=== PATIENT | female | born 1965 | race Caucasian/White ===

== ENCOUNTER 2019-06-20 11:43 | Outpatient (CLI) | payer BC, SELFPAY | END 2019-06-20 11:44 | disposition home or self-care (01) | LOC: SPT 11:44 | PROVIDERS: Family Provider Family Medicine; PCP Family Medicine; Visit Provider Specialist | DX: Z46.89 Encounter for fitting and adjustment of other specified devices (principal); S62.307D Unspecified fracture of fifth metacarpal bone, left hand, subsequent encounter for fracture with routine healing; X58.XXXD Exposure to other specified factors, subsequent encounter | CPT/HCPCS: L3984 ==

== ENCOUNTER → 2019-07-04 08:54 | Outpatient (BNVA) | payer BC, SELFPAY | PROVIDERS: Family Provider Family Medicine; PCP Family Medicine; Visit Provider Specialist | DX: S62.367A Nondisplaced fracture of neck of fifth metacarpal bone, left hand, initial encounter for closed fracture (principal); S62.647A Nondisplaced fracture of proximal phalanx of left little finger, initial encounter for closed fracture; X58.XXXA Exposure to other specified factors, initial encounter | CPT/HCPCS: 73130 ==

== ENCOUNTER → 2019-07-18 10:02 | Outpatient (BNVA) | payer BC, SELFPAY | PROVIDERS: Family Provider Family Medicine; PCP Family Medicine; Visit Provider Specialist | DX: S62.367A Nondisplaced fracture of neck of fifth metacarpal bone, left hand, initial encounter for closed fracture (principal); S62.647A Nondisplaced fracture of proximal phalanx of left little finger, initial encounter for closed fracture; X58.XXXA Exposure to other specified factors, initial encounter | CPT/HCPCS: 73130 ==

== ENCOUNTER 2020-02-04 09:14 | Observation (INO) | payer BC, SELFPAY ==
[2020-02-04] VITALS (23 sets, daily range): BP systolic 106–177; BP diastolic 55–96; PULSE 71–110; RESP 13–20; TEMP 36.3–36.9; O2SAT 93–100; BMI 34.2
--- NOTE | 2020-02-04 09:26 | CT_ITS ---
WS: [id number] CT ABDOMEN AND PELVIS WITH CONTRAST HISTORY: RIGHT lower quadrant pain. TECHNIQUE: Imaging performed of the abdomen and pelvis with IV contrast. Single phase imaging of the abdomen. Coronal and sagittal reformats are submitted. All CT scans at [facility] use at least one of these dose optimization techniques: automated exposure control; mA and/or kV adjustment per patient size (includes targeted exams where dose is matched to clinical indication); or iterativ e reconstruction. IV CONTRAST: Omnipaque 300; 95 mL IV. Oral contrast: No DLP: 1487.87 mGy.cm COMPARISON: None available. Lower thorax: Linear scar or atelectasis at the RIGHT lung base. 2 mm nodule at the RIGHT lung base o n image 9 of series 2. Heart is normal size. No hiatal hernia. Liver/biliary system: Normal size with no intrahepatic dilatation. Gallbladder: Normal. No gallstones or wall thickening. No pericholecystic fluid. Pancreas: Normal. Spleen: Normal. Adrenal glands: Normal. Right kidney: Normal. Left kidney: Areas of cortical thinning and scarring in the upper pole. No obstruction or solid mass. Aorta: Mild atherosclerosis with no aneurysm. Lymphadenopathy: None. Free fluid: Tiny amount of free fluid in the pelvis. Small amount of fluid along the RIGHT paracolic gutter. GI tract: The appendix is abnormal. Dilated appendix measuring up to 9 mm with a moderate amount of p eriappendiceal and pericecal fat stranding. No GI tract obstruction. There is no abscess. There are a few small lymph nodes in the fat surrounding the appendix. Abdominal wall: Small fat-containing umbilical hernia. Pelvis: Normal size anteverted uterus. Bones: Degenerative disc disease at L5-S1. CT/CT abdomen pelvis w con* [id number] IMPRESSION: 1. Acute appendicitis. Moderate adjacent periappendiceal inflammatory changes. No abscess. 2. No renal obstruction. Notified Olayinka Cochran DO at 02/04/2020 10:05 AM.
--- NOTE | 2020-02-04 09:54 | ED_ITS ---
HPI - Abdominal Pain General: Chief Complaint: Abdominal Pain Stated Complaint: abdominal tenderness/ running fever Time Seen by Provider: 02/04/20 09:21 History of Present Illness: HPI narrative: 54-year-old female presents emergency room with complaint of right lower quadrant abdominal pain for the last 2 days. She denies any genitourinary symptoms. She has a T-max of 102. Pain is progressively worsened since she began having in 2 days ago and is now h aving significant discomfort with mild palpation percussion and even with bumps in the road as she is driving here. She was seen by Dr. Morse this morning in his office and was highly suspicious for appendicitis he contacted us and reviewed the patient. Her last BM was 2 days ago. She denies any medication melena hematemesis or coffee-ground emesis of a history of heart disease Dr. Morse under the impression that the patient was taking Plavix however in reviewing with the patient she said she stopped that and is only taking aspirin at this time we will have him pharmacy operations specialist to confirm. She had a normal colonoscopy approximately 1 year ago she is diabetic in addition to having a known history of coronary artery disease MD elicited complaint: abdominal pain Pertinent past history: none Onset (ago): day(s) (2) Pain Consistency: constant Location: RLQ Severity: severe Quality: stabbing and sharp Radiation: none Migration to: no migration Exacerbating factors: movement Relieving factors: rest Associated Symptoms: Reports anorexia, bloating, GI cramping, nausea and vomiting; Denies change in bowel habits, change in stool character, chills, coffee ground emesis, constipation, diarrhea, dyspepsia, dysuria, excessive flatus, fever(s), heartburn, hematochezia, hematuria, hematemesis, fecal incontinence, loose stools, melena, poor appetite and syncope Review of Systems Const: Denies: fever(s) or chills ENMT: Denies: throat pain, ear or mastoid pain, nasal discharge or nasal congestion Card: Denies: syncope Resp: Denies: dyspnea, productive cough or non-productive cough GI: Reports: nausea, vomiting, bloating and GI cramping; Denies: hematemesis, coffee ground emesis, heartburn, diarrhea, constipation, excessive flatus, fecal incontinence, change in bowel habits, change in stool character, hematochezia or melena : Denies: dysuria or hematuria Skin/Breast: Denies: rash or pruritus PFSH ED PFSH: Medical History (Updated 02/04/20 @ 10:26 by Olayinka Cochran DO) CAD (coronary artery disease) CHF (congestive heart failure) High blood pressure determined by examination History of [place] (myocardial infarction) HTN (hypertension) Type 2 diabetes mellitus Family History Mother Heart disease Father Heart disease Social History Smoking and tobacco status: never smoked Alcohol intake: never Physical Exam Const: COMMON NORMALS: no acute distress GENERAL APPEARANCE: cooperative and comfortable ORIENTATION/CONSCIOUSNESS: Yes awake, Yes oriented to person, Yes oriented to place and Yes oriented to time HENMT: COMMON NORMALS: normocephalic, atraumatic and hearing grossly normal bilaterally HEAD & SCALP: normocephalic and atraumatic Neck/C-Spine: COMMON NORMALS: no JVD Resp: COMMON NORMALS: normal respiratory effort, No retractions, No use of accessory muscles and clear to auscultation bilaterally AUSCULTATION: clear to auscultation bilaterally Cardio: COMMON NORMALS: no JVD, regular rate, regular rhythm and No murmurs present (Cardio) RATE: regular rate RHYTHM: regular rhythm GI: PALPATION: Yes Tenderness to palpation present (GI) Details: RLQ, Yes Guarding due to palpation present (GI) in the RLQ and Yes Rebound tenderness present PERCUSSION: Other (pain with light percussion) Extremity: COMMON NORMALS: normal to inspection, capillary refill normal, no clubbing, cyanosis or edema, no calf tenderness and no pedal edema Neuro: SENSORIUM/ORIENTATION: Yes oriented to person, Yes oriented to place and Yes oriented to time Skin: COMMON NORMALS: no rashes or lesions noted GENERAL SKIN EXAM: no rashes or lesions noted Course Vital Signs: Vital signs: Vital Signs Temperature 98.5 F 02/04/20 09:16 Pulse Rate 106 H 02/04/20 10:00 Respiratory Rate 18 02/04/20 10:10 Blood Pressure 137/55 02/04/20 10:00 Pulse Oximetry 97 02/04/20 10:10 MDM - Abdominal Pain MDM Narrative: Medical decision making narrative: Acute appendicitis by CT consistent with physical exam findings. Discussed Dr. Walker he will take patient directly from the ER to the OR for definitive surgical care see his notes for further course of care. Lab Data: Labs: Lab Results 02/04/20 02/04/20 02/04/20 Range/Units 09:35 09:35 09:44 Sodium 138 (136-145) mmol/L Potassium 3.4 L (3.5-5.1) mmol/L Chloride 100 (98-107) mmol/L Carbon Dioxide 23 (22-29) mmol/L Anion Gap 18.4 (5-19) BUN 13 (6-20) mg/dL Creatinine 0.7 (0.5-0.9) mg/dL GFR Calculation 87.2 L (90-130) mL/min Glucose 133 H (65-115) mg/dL Calculated Osmolal ity 288 (285-295) mOsm/k g Lactic Acid 1.2 (0.5-2.2) mmol/L Calcium 9.8 (8.5-10.5) mg/dL Total Bilirubin 0.7 (0.15-1.2) mg/dL AST 12 (0-32) U/L ALT 19 (0-33) U/L Alkaline Phosphata se 68 (35-105) IU/L Total Protein 7.8 (6.6-8.7) g/dL Albumin 4.4 (3.5-5.2) g/dL Globulin 3.4 (1.3-4.6) g/dL Lipase 18 (13-60) U/L Urine Color Straw (Yellow) Urine Appearance Hazy A (CLEAR) Urine pH 6 (5-7) Ur Specific Gravit y 1.005 (1.005-1.030) Urine Protein Neg (Negative) Urine Glucose (UA) 4+ H (Normal) Urine Ketones 1+ H (Negative) Urine Blood Neg (Negative) Urine Nitrate Negative (Negative) Urine Bilirubin Neg (Negative) Urine Urobilinogen Norm (Negative) mg/dL Ur Leukocyte Esperanza ase Negative (Negative) Urine RBC None (0-2) /hpf Urine WBC 0-4 H (0-5) /hpf Ur Squamous Epith Cells None (0-5) /hpf Amorphous Sediment Not Reportable Urine Bacteria 4+ H (NONE) /hpf Discharge Plan Discharge Patient Disposition: Placed in Observation Clinical Impression: Acute appendicitis Coding Level of Care Code ED Casing Running Machine Tender for Chg Fwd Exam Comprehensive
[2020-02-04] MEDS: iohexol 300 mg/mL 100 mL Btl IV (09:55)
[2020-02-04] MEDS: ondansetron 2 mg/ML SDV 2 mL 4 MG IVP (10:02)
[2020-02-04 10:04] LABS: Protein Urine Neg (Negative); Specific Gravity, Urine 1.005 (1.005-1.030); Urine Appearance Hazy (CLEAR); Urine Color Straw (Yellow); pH Urine 6 (5-7)
[2020-02-04 10:05] LABS: Add Urine Microscopic? YES; Bilirubin Urine Neg (Negative); Blood Urine Neg (Negative); Glucose Urine UA 4+ (Normal); Ketones Urine 1+ (Negative); Leukocyte Esterase Urine Negative (Negative); Nitrate Urine Negative (Negative); Urobilinogen Urine Norm (Negative)
[2020-02-04 10:09] LABS: Lactic Sepsis W/Reflex 1.2 mmol/L (0.5-2.2)
[2020-02-04 10:10] LABS: Alanine Aminotransferase 19 U/L (0-33); Albumin Level 4.4 g/dL (3.5-5.2); Alkaline Phosphatase 68 IU/L (35-105); Anion Gap 18.4 (5-19); Aspartate Amino Transferase 12 U/L (0-32); Blood Urea Nitrogen 13 mg/dL (6-20); Calcium 9.8 mg/dL (8.5-10.5); Carbon Dioxide 23 mmol/L (22-29); Chloride 100 mmol/L (98-107); Globulin 3.4 g/dL (1.3-4.6); Glomerular Filtration Rate 87.2 mL/min (90-130); Glucose 133 mg/dL (65-115); Lipase 18 U/L (13-60); Osmolality Calculated 288 mOsm/kg (285-295); Potassium 3.4 mmol/L (3.5-5.1); Sodium 138 mmol/L (136-145); Total Bilirubin 0.7 mg/dL (0.15-1.2); Total Protein 7.8 g/dL (6.6-8.7)
[2020-02-04] MEDS: morphine 4 mg/mL SDV 1 mL IVP (10:10)
[2020-02-04 10:16] LABS: Add Urine Culture? No; Bacteria Urine 4+ /hpf; WBC Urine 0-4 /hpf (0-5)
--- NOTE | 2020-02-04 10:35 | PM.HP ---
Providers/Chief Complaint Admitting Physician: Dr. Walker Primary Care Provider: Romina Walton MD Chief Complaint: abdominal tenderness/ running fever History of Present Illness Kimberly Aldridge is a 54 year old female who started having lower abdominal pain day before yesterday night. Patient states that the pain progressively got worse over the course of the day yesterday until it became significant enough that she presented to her PCPs office who referred her to the ER. Patient denies any nausea, vomiting, fever chills, constipation or diarrhea. No similar episodes in the past. Patient is currently on aspirin but does not take Plavix. She had cardiac stents placed in 2017. No prior abdominal surgeries. Review of Systems General: Reports: 10 or more systems reviewed and unremarkable except in HPI and below Medications/Allergies Home Medications Medication Instructions Recorded Confirmed Last Taken Type exenatide microspheres 2 mg/0.65 2 mg SUBCUT Q7D 06/20/19 02/04/20 Unknown History mL subcutaneous pen injector aspirin 325 mg PO DAILY@05 02/04/20 02/04/20 02/04/20 05:00 History dapagliflozin [Farxiga] 10 mg PO DAILY@05 02/04/20 02/04/20 02/04/20 05:00 History glipizide 5 mg PO BID@02/04/20 02/04/20 02/04/20 05:00 History hydrochlorothiazide 12.5 mg PO DAILY@05 02/04/20 02/04/20 02/04/20 05:00 History metformin 750 mg PO BID 02/04/20 02/04/20 Unknown History metoprolol succinate 25 mg PO Q12H 02/04/20 02/04/20 02/04/20 History simvastatin 80 mg PO DAILY@22 02/04/20 02/04/20 02/03/20 History Allergies Allergy/AdvReac Type Severity Reaction Status Date / Time No Known Allergies Allergy Verified 02/04/20 10:28 PFSH Acute PFSH: Medical History (Updated 02/04/20 @ 10:38 by Joe Walker MD) CAD (coronary artery disease) CHF (congestive heart failure) History of [place] (myocardial infarction) HTN (hypertension) Hyperlipidemia Type 2 diabetes mellitus Surgical History (Updated 02/04/20 @ 10:37 by Joe Walker MD) H/O heart artery stent Family History Mother Heart disease Father Heart disease Social History Smoking and tobacco status: never smoked Alcohol intake: never Vitals/I&O/Wt Last Vital Signs Temp 98.2 F 02/04/20 10:30 Pulse 101 H 02/04/20 10:30 Resp 18 02/04/20 10:30 BP 134/96 02/04/20 10:30 Pulse Ox 98 02/04/20 10:30 Weight last 48 hrs Weight 212 lb Physical Exam Narrative: EXAM NARRATIVE: HEENT: Normocephalic Eye: Sclera /conjunctiva normal Respiratory and chest: Bilateral clear breath sounds on auscultation Cardiovascular: Normal S1 and S2 heart sounds Abdomen: Soft to palpation, tender right lower quadrant Neurological: Oriented to place person and time Skin: Intact, no lesions appreciated on gross exam Data : 02/04/20 09:35 02/04/20 09:35 A&P Assessment and plan (1) Acute appendicitis: 54-year-old female who presents to the ER today with right lower quadrant pain and CT scan showing acute appendicitis Plan for laparoscopic possible open appendectomy Procedure, risks, benefits and alternatives have been discussed with the patient who wishes to proceed with surgery. Status: Resolved Attestations Medical Necessity Statement*: Acute appendicitis requiring surgery Coding Level of Care Code Acute Rf Design Engineer for [facility] Diagnoses Acute appendicitis K35.80
--- NOTE | 2020-02-04 10:38 | P.ANESASSM_ITS ---
Pre-Anesthetic Assessment Pre-Anesthetic Assessment: Height/Weight: Height 1.68 m Weight 96.162 kg Temp Pulse Resp BP Pulse Ox 98.2 F 101 H 18 134/96 98 02/04/20 10:30 02/04/20 10:30 02/04/20 10:30 02/04/20 10:30 02/04/20 10:30 Preop Diagnosis: Acute appendicitis Proposed Procedure: Operation Date: 02/04/20 10:45 Proposed Procedures p Laparoscopic Appendectomy(Not Applicable) - Joe Walker MD Was Beta Gina taken within 24 hours: Yes Social: Social History: No alcohol and No tobacco Exam: Pre-Anes Outpt Exam: alert, oriented x 3, clear to auscultation bilaterally and regular rate & rhythm Airway: Submandibular: WNL Cervical ROM: WNL MP: 2 Dentition: Full Pulmonary: Pulmonary: None reported CV/HEM: CV/HEM: CAD and HTN : : None reported Hepatic: Hepatic: None reported GI: Comments: Acute abdomen Metabolic: Metabolic: DM Musc/skel: Musc/skel: None reported Neuropsych: Neuropsych: None reported Anesthetic Plan: ASA status: 3 Anesthesia: General Other: RSI Risk of > 500 ml blood loss (7ml/kg in children): No PFSH Anesthesia PFSH: Medical History (Updated 02/04/20 @ 10:38 by Joe Walker MD) CAD (coronary artery disease) CHF (congestive heart failure) History of [place] (myocardial infarction) HTN (hypertension) Hyperlipidemia Type 2 diabetes mellitus Surgical History (Updated 02/04/20 @ 10:37 by Joe Walker MD) H/O heart artery stent Family History Mother Heart disease Father Heart disease Social History Smoking and tobacco status: never smoked Alcohol intake: never Data Anesthesia CBC & Chem 7: 02/04/20 09:35 02/04/20 09:35 Other Labs: Laboratory Results - last 48 hr 02/04/20 02/04/20 02/04/20 09:35 09:35 09:44 Sodium 138 Potassium 3.4 L Chloride 100 Carbon Dioxide 23 Anion Gap 18.4 BUN 13 Creatinine 0.7 GFR Calculation 87.2 L Glucose 133 H Calculated Osmolality 288 Lactic Acid 1.2 Calcium 9.8 Total Bilirubin 0.7 AST 12 ALT 19 Alkaline Phosphatase 68 Total Protein 7.8 Albumin 4.4 Globulin 3.4 Lipase 18 Urine Color Straw Urine Appearance Hazy A Urine pH 6 Ur Specific [place] 1.005 Urine Protein Neg Urine Glucose (UA) 4+ H Urine Ketones 1+ H Urine Blood Neg Urine Nitrate Negative Urine Bilirubin Neg Urine Urobilinogen Norm Ur Leukocyte Esterase Negative Urine RBC None Urine WBC 0-4 H Ur Squamous Epith Cells None Amorphous Sediment Not Reportable Urine Bacteria 4+ H Cardiac Studies: No Data to Display
[2020-02-04] MEDS: sodium chloride 0.9% 1,000 ML 30 ML IV (10:49)
[2020-02-04 10:51] LABS: Basophils # 0.1 10^3/uL (0.0-0.1); Basophils % 0.5 %; Eosinophils # 0.1 10^3/uL (0.0-0.8); Eosinophils % 1.1 %; Hematocrit 45.6 % (37.0-47.0); Hemoglobin 15.1 g/dL (11.5-15.3); Lymphocytes # 2.9 10^3/uL (0.8-4.8); Lymphocytes % 25.5 %; Mean Corpuscular HGB Conc 33.1 g/dL (30.0-36.0); Mean Corpuscular Hemoglobin 28.1 pg (28.0-34.0); Mean Corpuscular Volume 84.9 fL (81-99); Mean Platelet Volume 9.6 fL (7.4-10.4); Monocytes # 0.8 10^3/uL (0.2-0.9); Monocytes % 6.8 %; Neutrophils # 7.58 10^3/uL (1.8-7.7); Neutrophils % 65.8 %; Nucleated Red Blood Cells % 0 %; Platelet Count 384 10^3/cmm (130-400); Red Blood Count 5.37 10^6/uL (4.1-5.3); Red Cell Distribution Width 13.9 % (12.1-15.1); White Blood Count 11.5 10^3/uL (4.0-10.0)
[2020-02-04] MEDS: piperacillin-tazobactam 3.375 GM in sodium chloride 0.9% (plus) 50 ML IV ×2 (10:56→18:11)
--- NOTE | 2020-02-04 12:13 | ANE.PACU2 ---
Inpatient post-anesthesia follow up: Airway intact: Yes Vital signs: Temperature 98.2 F Pulse Rate [Monito r] 110 Pulse Rate 101 Respiratory Rate 18 Blood Pressure [Ri ght Arm] 146/96 Blood Pressure 134/96 Pulse Oximetry 98 Oxygen Delivery Me thod Room Air Oxygen Flow Rate Fraction of Inspir ed Oxygen Hydration adequate: Yes Nausea and vomiting: No Pain level: 2 Mental status: Baseline
--- NOTE | 2020-02-04 12:41 | SUR.PHASEI ---
ABDOMEN SOFT AND ROUND, 3 INCISION SITES, EXOFIN FOR DRESSING. NO DRAINAGE NOTED, DENIES ANY NAUSEA OR DISCOMFORT AT THIS TIME.
--- NOTE | 2020-02-04 13:49 | SUR.PHASEI ---
1319 PT AWAKE ALERT TEXTING ON PHONE, PT DENIES PAIN AND NAUSEA, VSS ABD SOFT PT TOFLOORPER CART REPORT CALLED TO MAUREEN RN, PT TO ROOM UP TO BR WITH MINIMAL ASSIST.
--- NOTE | 2020-02-04 15:52 | PC.NURSE ---
PATIENT [facility]BUL[facility] AROUND [facility] WITH NO ASSISTANCE BUT STANDBY. NO ISSUES REPORTED.
[2020-02-04] MEDS: sodium chloride 0.9% 1,000 ML 100 ML IV (16:50)
[2020-02-04 17:15] LABS: Glucose Point of Care 171 mg/dL (70-110)
--- NOTE | 2020-02-04 17:55 | PM.OP ---
Operative Report Date of procedure: February 04, 2020 Pre-op Diagnosis: Acute appendicitis Post-op Diagnosis: Acute retrocecal appendicitis Procedure Done: Laparoscopic appendectomy Surgeon: Joe Walker Anesthesia: General Condition: stable Disposition: PACU Procedure: The patient was taken to the Operating Room and intubated under general anesthesia after antibiotic had been administered. Using a 15 blade, a 1-cm infraumbilical incision was made and using open James technique, the peritoneal cavity was entered. A 12mm port with balloon was placed and 14 mm of pneumoperitoneum was created and 10-mm 30 degree scope was introduced. Two separate 5mm ports were placed in the left and right lower quadrant under direct visualization. The appendix could not be identified though there was some induration noted on the lateral aspect of the cecum. The line of Toldt was opened medially and the retroperitoneal plane was entered. Due to significant inflammation and the fact the patient is on 325 mg of aspirin there was moderate amount of oozing which was irrigated and suctioned out. Dissection was carried in the retroperitoneal plane until finally the base of the appendix was identified. There was bleeding from the division of the mesoappendix which was controlled with a combination of electrocautery and 10 mm clips. The mesoappendix was finally freed using electrocautery/blunt dissection from the lateral wall of the cecum. An Endo SANDRA stapler 45mm long 3.5mm blue load was introduced to divide the appendix at it's base. There was no bleeding noted and the staple line appeared intact. The right lower quadrant was irrigated with saline and an EndoCatch bag was introduced to remove the appendix. All three ports were removed under direct visualization and there was no bleeding noted on the port sites. 10 0.5% Marcaine was infiltrated at the port sites. The fascia at the umbilical port was closed using figure of eight 0-Vicryl sutures and subcutaneous tissue was approximated using 3-0 Vicryl and skin at all 3 port sites was closed using 4-0 Monocryl and Dermabond.
[2020-02-04] MEDS: metoprolol succinate ER (24 HR) 25 mg Tablet PO (18:11)
[2020-02-04] MEDS: docusate sodium 100 mg Capsule PO (18:11)
[2020-02-04 20:38] LABS: Glucose Point of Care 249 mg/dL (70-110)
[2020-02-04] MEDS: atorvastatin 40 mg Tablet PO (21:40)
[2020-02-05 01:00] VITALS: BP 101/66; PULSE 78; RESP 17; TEMP 37.1; O2SAT 94
[2020-02-05] MEDS: piperacillin-tazobactam 3.375 GM in sodium chloride 0.9% (plus) 50 ML IV (02:12)
[2020-02-05] MEDS: sodium chloride 0.9% 1,000 ML 100 ML IV (02:13)
[2020-02-05 02:37] LABS: Basophils % 0.1 %; Hematocrit 35.5 % (37.0-47.0); Hemoglobin 11.5 g/dL (11.5-15.3); Lymphocytes # 1.4 10^3/uL (0.8-4.8); Mean Corpuscular HGB Conc 32.4 g/dL (30.0-36.0); Mean Corpuscular Hemoglobin 27.8 pg (28.0-34.0); Mean Platelet Volume 9.5 fL (7.4-10.4); Monocytes # 0.9 10^3/uL (0.2-0.9); Monocytes % 8.8 %; Neutrophils # 7.45 10^3/uL (1.8-7.7); Neutrophils % 76.8 %; Nucleated Red Blood Cells % 0 %; Platelet Count 328 10^3/cmm (130-400); Red Blood Count 4.13 10^6/uL (4.1-5.3); Red Cell Distribution Width 14.1 % (12.1-15.1); White Blood Count 9.7 10^3/uL (4.0-10.0)
[2020-02-05 02:53] LABS: Anion Gap 11.4 (5-19); Blood Urea Nitrogen 11 mg/dL (6-20); Calcium 8.5 mg/dL (8.5-10.5); Carbon Dioxide 24 mmol/L (22-29); Chloride 104 mmol/L (98-107); Glomerular Filtration Rate 74.7 mL/min (90-130); Glucose 98 mg/dL (65-115); Osmolality Calculated 281 mOsm/kg (285-295); Potassium 3.4 mmol/L (3.5-5.1); Sodium 136 mmol/L (136-145)
[2020-02-05 05:00] VITALS: BP 108/72; PULSE 83; RESP 17; TEMP 36.9; O2SAT 94
[2020-02-05] MEDS: metoprolol succinate ER (24 HR) 25 mg Tablet PO (05:49)
[2020-02-05] MEDS: hydroCHLOROthiazide 25 mg Tablet 12.5 MG PO (05:49)
[2020-02-05 06:25] LABS: Glucose Point of Care 116 mg/dL (70-110)
[2020-02-05 07:21] VITALS: BP 104/70; PULSE 77; RESP 16; TEMP 36.6; O2SAT 95
--- NOTE | 2020-02-05 07:38 | PM.DCS ---
Discharge Providers Date of Admission: 02/04/20 13:23 Date of Discharge: February 05, 2020 Attending Provider at Admission: Joe Walker MD Attending Provider at Discharge: Joe Walker MD Primary Care Provider: Romina Walton MD Diagnoses at Discharge Discharge Diagnosis (1) Acute appendicitis: Status: Resolved Reason for Visit Reason for Visit: abdominal tenderness/ running fever Brief History: This is a 54-year-old female who presented to the ER with 2-day history of right lower quadrant pain, leukocytosis scan showing acute appendicitis Hospital Course Hospital Course Patient seen the operating room where she underwent laparoscopic appendectomy. The significant amount of inflammation as well as some bleeding and therefore she was kept overnight for observation and IV antibiotics. By following morning patient was tolerating a regular diet ambulating and her vital signs were stable. Her hemoglobin was 11 on day of discharge Discharge Data Data Completed and Pending: Completed Studies During Hospitalization Category Date Time Status CT abdomen pelvis w con* [id number] Stat Cat Scan 02/04/20 09:26 Completed Pending at discharge Category Date Time Status ES surgery / GI i mages Routine Exams 02/04/20 10:41 Ordered Pathology: Surgic al [PTH] Routine Pth 02/04/20 11:36 Received Labs from last 24 hours 02/05/20 02/05/20 02/05/20 06:21 02:06 02:06 WBC 9.7 RBC 4.13 Hgb 11.5 Hct 35.5 L MCV 86.0 MCH 27.8 L MCHC 32.4 RDW 14.1 Plt Count 328 MPV 9.5 Neut % (Auto) 76.8 Lymph % (Auto) 14.0 Schleicher % (Auto) 8.8 Eos % (Auto) 0.0 Baso % (Auto) 0.1 Neut # (Auto) 7.45 Lymph # (Auto) 1.4 Schleicher # (Auto) 0.9 Eos # (Auto) 0.0 Baso # (Auto) 0.0 Nucleated RBC % (a uto) 0 Nucleated RBCs # 0.0 Sodium 136 Potassium 3.4 L Chloride 104 Carbon Dioxide 24 Anion Gap 11.4 BUN 11 Creatinine 0.8 GFR Calculation 74.7 L Glucose 98 POC Glucose 116 Calculated Osmolal ity 281 L Lactic Acid Calcium 8.5 Total Bilirubin AST ALT Alkaline Phosphata se Total Protein Albumin Globulin Lipase Urine Color Urine Appearance Urine pH Ur Specific Gravit y Urine Protein Urine Glucose (UA) Urine Ketones Urine Blood Urine Nitrate Urine Bilirubin Urine Urobilinogen Ur Leukocyte Esperanza ase Urine RBC Urine WBC Ur Squamous Epith Cells Amorphous Sediment Urine Bacteria 02/04/20 02/04/20 02/04/20 20:32 16:57 09:44 WBC RBC Hgb Hct MCV MCH MCHC RDW Plt Count MPV Neut % (Auto) Lymph % (Auto) Schleicher % (Auto) Eos % (Auto) Baso % (Auto) Neut # (Auto) Lymph # (Auto) Schleicher # (Auto) Eos # (Auto) Baso # (Auto) Nucleated RBC % (a uto) Nucleated RBCs # Sodium Potassium Chloride Carbon Dioxide Anion Gap BUN Creatinine GFR Calculation Glucose POC Glucose 249 171 Calculated Osmolal ity Lactic Acid Calcium Total Bilirubin AST ALT Alkaline Phosphata se Total Protein Albumin Globulin Lipase Urine Color Straw Urine Appearance Hazy A Urine pH 6 Ur Specific Gravit y 1.005 Urine Protein Neg Urine Glucose (UA) 4+ H Urine Ketones 1+ H Urine Blood Neg Urine Nitrate Negative Urine Bilirubin Neg Urine Urobilinogen Norm Ur Leukocyte Esperanza ase Negative Urine RBC None Urine WBC 0-4 H Ur Squamous Epith Cells None Amorphous Sediment Not Reportable Urine Bacteria 4+ H 02/04/20 02/04/20 02/04/20 09:35 09:35 09:35 WBC 11.5 H RBC 5.37 H Hgb 15.1 Hct 45.6 MCV 84.9 MCH 28.1 MCHC 33.1 RDW 13.9 Plt Count 384 MPV 9.6 Neut % (Auto) 65.8 Lymph % (Auto) 25.5 Schleicher % (Auto) 6.8 Eos % (Auto) 1.1 Baso % (Auto) 0.5 Neut # (Auto) 7.58 Lymph # (Auto) 2.9 Schleicher # (Auto) 0.8 Eos # (Auto) 0.1 Baso # (Auto) 0.1 Nucleated RBC % (a uto) 0 Nucleated RBCs # 0.0 Sodium 138 Potassium 3.4 L Chloride 100 Carbon Dioxide 23 Anion Gap 18.4 BUN 13 Creatinine 0.7 GFR Calculation 87.2 L Glucose 133 H POC Glucose Calculated Osmolal ity 288 Lactic Acid 1.2 Calcium 9.8 Total Bilirubin 0.7 AST 12 ALT 19 Alkaline Phosphata se 68 Total Protein 7.8 Albumin 4.4 Globulin 3.4 Lipase 18 Urine Color Urine Appearance Urine pH Ur Specific Gravit y Urine Protein Urine Glucose (UA) Urine Ketones Urine Blood Urine Nitrate Urine Bilirubin Urine Urobilinogen Ur Leukocyte Esperanza ase Urine RBC Urine WBC Ur Squamous Epith Cells Amorphous Sediment Urine Bacteria Vitals: Last Vital Signs Temp 97.9 F 02/05/20 07:21 Pulse 77 02/05/20 07:21 Resp 16 02/05/20 07:21 BP 104/70 02/05/20 07:21 Pulse Ox 95 02/05/20 07:21 Discharge Plan Discharge Patient Disposition: Home Condition: Stable Prescriptions: [place] 5-325 mg tablet 1 tab PO Q6H 7 Days Qty: 20 RF: 0 docusate sodium [Colace] 100 mg capsule 100 mg PO BID Qty: 30 RF: 0 levofloxacin 500 mg tablet 500 mg PO DAILY 5 Days RF: 0 metronidazole [Flagyl] 500 mg tablet 500 mg PO Q8H 5 Days Qty: 15 RF: 0 ondansetron HCl [Zofran] 4 mg tablet 4 mg PO Q6H PRN (Reason: nausea and vomiting) Qty: 20 RF: 0 Continued Bydureon 2 mg/0.65 mL pen injector 2 mg SUBCUT Q7D RF: 0 glipizide 5 mg tablet extended release 24hr 5 mg PO BID@05,18 RF: 0 metformin 750 mg tablet extended release 24 hr 750 mg PO BID RF: 0 Farxiga 10 mg tablet 10 mg PO DAILY@05 RF: 0 simvastatin 80 mg tablet 80 mg PO DAILY@22 RF: 0 metoprolol succinate 25 mg tablet extended release 24 hr 25 mg PO Q12H RF: 0 hydrochlorothiazide 12.5 mg tablet 12.5 mg PO DAILY@05 RF: 0 Held aspirin 325 mg tablet 325 mg PO DAILY@05 RF: 0 Hold Instructions: Resume on 02/11/20. Discharge Orders: Discharge Order (Routine); Ordered 02/05/20 Ordered By: Joe Walker Referrals: Joe Walker MD [Physician] - 2 weeks Discharge Diet: Advance as tolerated Activity Restrictions/Additional Instructions: 1. Up and walking as tolerated. 2. Ok to shower in 48 hours after surgery. 3. Remove Dermabond dressing in 7-10 days. 4. Do not lift more than 10 pounds. 5. Do not operate heavy machinery or drive while using pain medications. 6. Advised to return to ER or contact my office if there are any signs of infection like, increasing pain, fevers, chills, redness or drainage of pus. Discharge Attestations Time Spent in Discharge Care*: less than 30 min Quality Metrics Clinical Quality Measures During this hospital stay, did patient experience: None Coding Level of Care Code Acute Special Education Director for [facility]jandre Diagnoses Acute appendicitis K35.80
[2020-02-05] MEDS: docusate sodium 100 mg Capsule PO (09:32)
[2020-02-05 09:49] VITALS: BP 104/70; PULSE 77; RESP 16; TEMP 36.6; O2SAT 95
== END 2020-02-05 09:49 | disposition home or self-care (01) ==
LOC: ER 10:13 → OPS 10:14 → MEDSURG 13:26
PROVIDERS: Admitting Provider Surgery; Emergency Provider Family Medicine; Family Provider Family Medicine; PCP Family Medicine; Visit Provider Surgery
PROC: 0DTJ4ZZ Resection of Appendix, Percutaneous Endoscopic Approach (ICD-10-PCS; CPT 44970; principal; 2020-02-04 10:45)
DX: K35.80 Unspecified acute appendicitis (principal); I25.10 Atherosclerotic heart disease of native coronary artery without angina pectoris; E11.9 Type 2 diabetes mellitus without complications; I11.0 Hypertensive heart disease with heart failure; I50.9 Heart failure, unspecified; E78.5 Hyperlipidemia, unspecified; I25.2 Old myocardial infarction; Z82.49 Family history of ischemic heart disease and other diseases of the circulatory system; Z79.82 Long term (current) use of aspirin; Z79.84 Long term (current) use of oral hypoglycemic drugs
CPT/HCPCS: 44970; 12345; 36415; 36416; 74177; 80048; 80053; 81001; 82962; 83605; 83690; 85025; 88304; 96361; 96365; 96366; 96372; 96375; 99282; 99285; G0378; J1100; J1815; J1885; J2270; J2405; J2543; J2704; J2710; J3010; J3490; J7030; Q9967

== ENCOUNTER 2021-03-09 10:39 | Outpatient (CLI) | payer BC, SELFPAY ==
--- NOTE | 2021-03-09 11:00 | USCV_ITS ---
Kimberly Aldridge Age: 55 Gender: F : 1965 Exam Date: 03/09/2021 11:19 Ordering Phys: Yevtte Monroy MD ([email or web address]) Technologist: CARMEN [place] [facility] [place]: Chronic diastolic congestice heart failure BP: 134 / 86 HR: 74 Rhythm: Sinus Technical Quality: Technically difficult study MEASUREMENTS (Male / Female) Normal Values 2D ECHO LV Diastolic Diameter PLAX 5.1 cm 4.2 - 5.9 / 3.9 - 5.3 cm LV Systolic Diameter PLAX 4.0 cm IVS Diastolic Thickness 1.1 cm 0.6 - 1.0 / 0.6 - 0.9 cm IVS Systolic Thickness 1.4 cm LVPW Diastolic Thickness 0.8 cm 0.6 - 1.0 / 0.6 - 0.9 cm LVPW Systolic Thickness 1.0 cm RV Chamber Size 3.1 cm LVOT Diameter 2.0 cm LV Ejection Fraction 2D Teich 44.4 % LV Ejection Fraction MOD 2C 29.4 % LV Ejection Fraction 2C AL 29.0 % LA Diameter 3.3 cm LA Width 3.5 cm LA Height 4.0 cm RA Width 4.0 cm RA Height 3.7 cm Aorta at Sinotubular Diameter 2.2 cm M-MODE Aortic Annulus Diameter 2.9 cm LA Ao Ratio MM 1.3 MV E Point Septal Separation 0.6 cm DOPPLER AV Peak Velocity 132.0 cm/s LVOT Peak Velocity 101.0 cm/s AV Area Cont Eq vti 2.7 cm squared AV Area Cont Eq pk 2.4 cm squared MV Area PHT 4.8 cm squared Mitral E to A Ratio 1.0 MV E' Velocity 45.0 cm/s Mitral E to MV E' Ratio 11.7 Mitral E to LV E' Lateral Ratio 10.4 Mitral E to LV E' Septal Ratio 13.5 TR Peak Velocity 306.0 cm/s TR Peak Gradient 37.5 mmHg TV Peak E Velocity 50.0 cm/s Right Atrial Pressure 3.0 mmHg Pulmonary Artery Systolic Pressu 40.5 mmHg PV Peak Velocity 73.0 cm/s RV Acceleration Time 0.1 s RV Ejection Time 0.3 s RV AcT/ET 0.4 FINDINGS Left Ventricle Normal left ventricular cavity size. Normal left ventricular systolic function. Left ventricular ejection fraction is estimated at 55 %. Grade I/IV diastolic dysfunction (abnormal relaxation filling pattern), normal to mildly elevated filling pressures. Right Ventricle The right ventricle is normal in size and function. RVSP could not be calculated due to incomplete tricuspid regurgitation velocity profile. Right Atrium The right atrium is normal in size. Left Atrium The left atrium is normal in size. Mitral Valve Moderately thickened mitral valve. No mitral valve stenosis. No mitral valve regurgitation. Aortic Valve Moderate aortic valve calcification. No aortic valve stenosis. No aortic valve regurgitation. Tricuspid Valve Structurally normal tricuspid valve without significant stenosis or regurgitation. Pulmonic Valve Structurally normal pulmonic valve without significant stenosis. There is no pulmonic regurgitation. Pericardium Normal pericardium without effusion. Aorta Normal ascending aorta dimension. CONCLUSIONS 1-Normal left ventricular cavity size. Normal left ventricular systolic function. Left ventricular ejection fraction is estimated at 55 %. Grade I/IV diastolic dysfunction (abnormal relaxation filling pattern), normal to mildly elevated filling pressures. 2-There is no pericardial effusion. 3-No significant valve abnormalities. 4-The right ventricle is normal in size and function. RVSP could not be calculated due to incomplete tricuspid regurgitation velocity profile. 6-Right atrial pressure is around 5 mm of mercury. 7-When compared to the prior echocardiogram dated 26 April 2016 left ventricle ejection fraction has improved from moderately reduced 45% to normal 55% now. Yvette Monroy MD (Electronically Signed) Final Date: 09 March 2021 19:48 S
== END 2021-03-09 10:40 | disposition home or self-care (01) ==
LOC: RAD 10:43
PROVIDERS: PCP Family Medicine; Visit Provider Internal Medicine Cardiovascular Disease
DX: I50.32 Chronic diastolic (congestive) heart failure (principal); R06.02 Shortness of breath; I07.1 Rheumatic tricuspid insufficiency
CPT/HCPCS: 93306

== ENCOUNTER 2023-04-30 00:04 | Inpatient (IN) | payer BC, SELFPAY ==
[2023-04-30] VITALS (70 sets, daily range): BP systolic 86–146; BP diastolic 55–126; PULSE 78–164; RESP 15–34; TEMP 36.4–36.7; O2SAT 91–99; BMI 38.7; BMI 38.3; BMI 36.8
--- NOTE | 2023-04-30 00:07 | ECG_ITS ---
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 Measurements Intervals [place] Rate: 160 P: 0 [place]: 0 QRS: -3 QRSD: 170 T: 40 QT: 327 QTc: 535 Interpretive Statements UNCERTAIN REGULAR RHYTHM LEFT BUNDLE BRANCH BLOCK [120+ ms QRS DURATION, 80+ ms Q/S IN V1/V2, 85+ ms R IN I/aVL/V5/V6] Compared to ECG 04/26/2016 05:17:13 Left bundle-branch block now present Sinus rhythm no longer present Incomplete right bundle-branch block no longer present Myocardial infarct finding no longer present Electronically Signed On 05-01-2023 9:30:09 DIESEL TRUCK CRANE OPERATOR by Kelvin Clinton M.D. [id number]
--- NOTE | 2023-04-30 00:07 | XRR_ITS ---
PROCEDURE INFORMATION: Exam: XR Chest Exam date and time: 04/30/2023 12:30 AM Age: 57 years old Clinical indication: Dyspnea; Additional info: SOB TECHNIQUE: Imaging protocol: Radiologic exam of the chest. Views: 1 view. COMPARISON: CT abdomen pelvis w con* [id number] 02/04/2020 9:42 AM FINDINGS: Lungs: Moderate interstitial coarsening is nonspecific. No focal consolidation. Pleural spaces: Unremarkable. No pleural effusion. No pneumothorax. Heart/Mediastinum: Unremarkable. No cardiomegaly. Bones/joints: Unremarkable. XR/XR chest 1V portable [id number] IMPRESSION: Moderate interstitial coarsening is nonspecific. Differential diagnosis includes chronic lung change, pulmonary edema, and atypical infection.
[2023-04-30] MEDS: FUROsemide 10 mg/mL SDV 10mL 80 MG IVP (00:16)
[2023-04-30] MEDS: LORazepam 2 mg/mL INJ 10 mL MDV 1 MG IV (00:17)
[2023-04-30 00:19] LABS: ABG PCO2 49.8 mmHg (35-45); Arterial Blood Gas Hematocrit 46.2 % (37-47); Base Excess ABG -9.8 mmol/L (-2.0-2.0); Blood Gas Allen Test Pos; Blood Gas Sample Site Radial, right; Blood Gas Sample Type Arterial; Carboxyhemoglobin 0.5 %THgb (0.4-20.1); HCO3 ABG 18.7 mmol/L (22-26); HGB O2 Sat 95.6 % (95-100); Methemoglobin 0.1 % (0.4-1.5); Oxygen Device BIPAP; PO2 FiO2 Ratio Arterial Blood 0; Total Hemoglobin 15.1 g/dL (12-16)
[2023-04-30 00:20] LABS: ABG PH Result 7.18 (7.35-7.45)
[2023-04-30] MEDS: dilTIAZem 100 MG in sodium chloride 0.9% (add-van) 100 ML IV (00:20)
[2023-04-30] MEDS: dilTIAZem 5 mg/mL SDV 5 mL 25 MG (00:21)
[2023-04-30] MEDS: ondansetron 2 mg/ML SDV 2 mL 4 MG IVP (00:21)
[2023-04-30] MEDS: sodium chloride 0.9% (100 ml) 100 ML (00:22)
[2023-04-30 00:32] LABS: Ketone (Acetest) Serum Negative (Negative)
[2023-04-30 00:37] LABS: Basophils # 0.1 10^3/uL (0.0-0.1); Basophils % 0.6 %; Eosinophils # 0.5 10^3/uL (0.0-0.8); Eosinophils % 3.1 %; Hematocrit 47.4 % (36-47); Lymphocytes # 10.5 10^3/uL (0.8-4.8); Lymphocytes % 61.9 %; Mean Corpuscular HGB Conc 32.3 g/dL (30-55); Mean Corpuscular Hemoglobin 28.6 pg (27-33); Mean Corpuscular Volume 88.6 fl (85-98); Mean Platelet Volume 9.2 fL (7.4-10.4); Monocytes # 0.7 10^3/uL (0.2-0.9); Neutrophils # 5.07 10^3/uL (1.8-7.7); Neutrophils % 29.8 %; Nucleated Red Blood Cells % 0 %; Platelet Count 426 10^3/cmm (157-399); Red Blood Count 5.35 10^6/uL (3.85-5.65); Red Cell Distribution Width 13.7 % (12.1-15.1); White Blood Count 17.04 10^3/uL (3.29-11.43)
[2023-04-30 00:38] LABS: D Dimer 0.63 ug/mLFEU (0-0.59)
[2023-04-30 00:56] LABS: Alanine Aminotransferase 52 U/L (0-33); Albumin Level 4.3 g/dL (3.5-5.2); Alkaline Phosphatase 113 U/L (35-105); Anion Gap 23.9 (5-19); Aspartate Amino Transferase 79 U/L (0-32); Blood Urea Nitrogen 11 mg/dL (6-20); Calcium 9.1 mg/dL (8.5-10.5); Carbon Dioxide 19 mmol/L (22-29); Chloride 96 mmol/L (98-107); Globulin 2.8 g/dL (1.3-4.6); Glomerular Filtration Rate 51.2 mL/min (90-130); Glucose 433 mg/dL (65-115); NT Pro B Type Natriuretic Pept 645 pg/mL (0-125); Osmolality Calculated 298 mOsm/kg (285-295); Potassium 3.9 mmol/L (3.5-5.1); Sodium 135 mmol/L (136-145); Total Bilirubin 0.5 mg/dL (0.15-1.2); Total Protein 7.1 g/dL (6.6-8.7)
[2023-04-30 00:59] LABS: Lactic Sepsis W/Reflex 6.7 mmol/L (0.5-2.2)
[2023-04-30 01:13] LABS: Troponin(5th) Baseline 15 ng/L (0-10)
[2023-04-30 01:28] LABS: Add Urine Microscopic? NO; Charge for UA Resulting for Rev
[2023-04-30 01:30] LABS: Bilirubin Urine Neg (Negative); Blood Urine Neg (Negative); Glucose Urine UA 4+ (Normal); Ketones Urine Negative (Negative); Leukocyte Esterase Urine Negative (Negative); Nitrate Urine Negative (Negative); Protein Urine Neg (Negative); Specific Gravity, Urine 1.005 (1.005-1.030); Urine Appearance Clear (CLEAR); Urine Color Colorless (Yellow); Urobilinogen Urine Norm (Negative); pH Urine 6 (5-7)
[2023-04-30] MEDS: piperacillin-tazobactam 4.5 GM in sodium chloride 0.9% (plus) 50 ML IV (01:38)
[2023-04-30] MEDS: vancomycin 1,500 MG/300 ML PIGGYBACK 200 MG IV (01:39)
[2023-04-30 02:09] LABS: Reflex Lactate Order REFLEX LACTIC ORDERD
--- NOTE | 2023-04-30 02:11 | ECG_ITS ---
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 Measurements Intervals [place] Rate: 108 P: 78 [place]: 150 QRS: 29 QRSD: 157 T: 72 QT: 421 QTc: 566 Interpretive Statements SINUS TACHYCARDIA WITH OCCASIONAL VENTRICULAR PREMATURE COMPLEXES LEFT BUNDLE BRANCH BLOCK [120+ ms QRS DURATION, 80+ ms Q/S IN V1/V2, 85+ ms R IN I/aVL/V5/V6] Compared to ECG 04/30/2023 00:08:14 Ventricular premature complex(es) now present Electronically Signed On 05-01-2023 9:38:16 AUTOMATIC GRINDER OPERATOR by Kelvin Clinton M.D. [id number]
[2023-04-30 02:17] LABS: Adenovirus Not Detected (NOT DETECT); Chlamydia Pneumoniae Not Detected (NOT DETECT); Human Metapneumovirus Not Detected (NOT DETECT); Human Rhinovirus/Enterovirus Not Detected (NOT DETECT); Influenza A Not Detected (NOT DETECT); Influenza A H1 Not Detected (NOT DETECT); Influenza A H1-2009 Not Detected (NOT DETECT); Influenza A H3 Not Detected (NOT DETECT); Influenza B Not Detected (NOT DETECT); Mycoplasma Pneumoniae Not Detected (NOT DETECT); Parainfluenza Virus Type 1 Not Detected (NOT DETECT); Parainfluenza Virus Type 2 Not Detected (NOT DETECT); Parainfluenza Virus Type 3 Not Detected (NOT DETECT); Parainfluenza Virus Type 4 Not Detected (NOT DETECT); Respiratory Syncytial Virus A Not Detected (NOT DETECT); Respiratory Syncytial Virus B Not Detected (NOT DETECT); SARS-COV-2 Not Detected (NOT DETECT)
[2023-04-30 02:21] LABS: Coronavirus 229E,HKU1,NL63,OC4 Detected (NOT DETECT)
[2023-04-30 02:21] LABS: Troponin 5 2HR 59.72 ng/L (0-10)
[2023-04-30 02:23] LABS: Troponin 5 2HR Delta 44.72 ABS# (0-10)
--- NOTE | 2023-04-30 03:00 | P.HP_ITS ---
Providers/Chief Complaint 2 Admitting Physician: Alexandro Machuca Primary Care Provider: Romina Walton MD Chief Complaint: RESP. DISTRESS History of Present Illness 57-year-old lady with history of CAD, stent in RCA after STEMI in 2017, also noted disease in LAD with 60% mid stenosis as well as 50% LCx and 60% proximal OM1 stenosis, these were not intervened upon at that time and she continued on medical therapy, ejection fraction had improved on follow-up from 45% to 55% on echocardiogram back in 2021. Other medical history including HTN, HLD, DM2. She came into ER via EMS due to shortness of breath/dyspnea, initially thought to be possibly V. tach received amiodarone in EMS, received a breathing treatment. She noticed getting a cold last weekend but thought she was getting better until getting worse through the day yesterday. In ER noted tachycardia 170s, tachypnea, increased work of breathing, was started on BiPAP support, received 80 mg IV push Lasix, Ativan, started on Cardizem drip. On EKG noted a left bundle branch block, uncertain regular tachycardia. Chest x-ray with diffuse interstitial infiltrates possible pulmonary edema. Noted with leukocytosis 17.04, question of whether there may be superimposed right lung infiltrate as well, was given empiric antibiotics with Zosyn and vancomycin. Blood cultures been obtained. Respiratory viral panel is pending. With metabolic acidosis, anion gap 20.9, lactic acid of 6.7. ABG 7.18/49.8/96. Glucose 433. Urine and serum ketones were negative. Baseline troponin 15. NT- proBNP 645. New transaminitis AST 79, ALT 52, continue alk phos elevation 113. DDimer with mild abnormality 0.63. Repeat EKG with sinus tachycardia 108, new LBBB. Was discussed with cardiology in ER and consult requested. Respiratory viral panel returns positive for Coronavirus. Review of Systems 2 Const: Reports: malaise ENMT: Denies: throat pain Card: Denies: chest pain, edema, pre-syncope or dyspnea on exertion Resp: Reports: dyspnea and non-productive cough; Denies: productive cough, change in phlegm color or hemoptysis GI: Denies: abdominal pain, nausea, vomiting, diarrhea, constipation, hematochezia or melena : Denies: flank pain, urinary frequency or hematuria Musc: Denies: back pain, joint swelling or joint redness Skin/Breast: Denies: rash or new lesions Neuro: Denies: headache(s) Medications/Allergies Home Medications Medication Instructions Recorded Confirmed Last Taken Type aspirin 325 mg tablet 325 mg PO DAILY@05 02/04/20 12/14/20 02/04/20 05:00 History dapagliflozin propanediol 10 mg 10 mg PO DAILY@02/04/20 12/14/20 02/04/20 05:00 History tablet (Farxiga) glipizide 5 mg tablet, extended 5 mg PO BID@02/04/20 12/14/20 02/04/20 05:00 History release 24 hr metformin 750 mg tablet,extended 750 mg PO BID 02/04/20 12/14/20 Unknown History release 24 hr hydrochlorothiazide 12.5 mg tablet See Rx Instructions .Route 02/04/21 Unknown Rx .COMPLEX #90 tabs simvastatin 80 mg tablet 80 mg PO DAILY #90 tabs 03/01/21 Unknown Rx multivitamin 1 tab PO DAILY 12/13/21 Unknown History metoprolol succinate 25 mg 25 mg PO BID #180 tabs 01/06/23 Unknown Rx tablet,extended release 24 hr Allergies Allergy/AdvReac Type Severity Reaction Status Date / Time No Known Allergies Allergy Verified 12/12/22 09:00 PFSH Acute 2 PFSH: Medical History Hyperlipidemia CAD (coronary artery disease) CHF (congestive heart failure) HTN (hypertension) History of [place] (myocardial infarction) Type 2 diabetes mellitus Surgical History Status post colonoscopy S/P laparoscopic appendectomy (02/04/20) H/O heart artery stent Family History Mother Heart disease Father Heart disease Social History Smoking and tobacco/nicotine status: never used tobacco/nicotine Alcohol intake: never Substance/Drug Use: never Marital status: Number of children: 3 Current occupational status: employed Vitals/I&O/Wt Last Vital Signs Temp 97.6 F 04/30/23 02:43 Pulse 108 H 04/30/23 02:43 Resp 18 04/30/23 02:43 BP 123/76 04/30/23 02:43 Pulse Ox 99 04/30/23 02:43 O2 Del Method BiPAP 04/30/23 02:06 FiO2 65 04/30/23 00:34 04/29/23 04/29/23 04/30/23 14:59 22:59 06:59 Intake Total 0.666 / 0.666 Balance 0.666 / 0.666 Weight last 48 hrs Weight 108.862 kg Physical Exam 2 Const: COMMON NORMALS: patient oriented x3 and alert GENERAL APPEARANCE: c ooperative ORIENTATION/CONSCIOUSNESS: Yes awake HENMT: COMMON NORMALS: oropharynx normal Neck/C-Spine: COMMON NORMALS: no JVD Resp: AUSCULTATION: diminished lung sounds Cardio: COMMON NORMALS: no JVD, regular rhythm, S1 normal heart sound present, S2 normal heart sound present and No murmurs present (Cardio) RHYTHM: regular rhythm HEART SOUNDS: S1 normal heart sound present and S2 normal heart sound present GI: COMMON NORMALS: Normal to inspection, nondistended, normoactive bowel sounds present, Soft to palpation and non-tender PALPATION: Yes Soft to palpation Extremity: COMMON NORMALS: no joint enlargement and no pedal edema Neuro: COMMON NORMALS: patient oriented x3 and moves all extremities S ENSORIUM/ORIENTATION: Yes alert Skin: COMMON NORMALS: no rashes or lesions noted GENERAL SKIN EXAM: no rashes or lesions noted Urinary Catheter Management: Constantino: Cath Placed During This Visit: yes Urinary Catheter Date of Insertion: 04/30/23 Urinary Catheter Time of Insertion: 01:18 Data 04/30/23 00:13 04/30/23 00:13 Micro: Microbiology 04/30/23 00:30 Blood Culture - Preliminary Blood SPECIMEN COLLECTED 04/30/23 00:20 Blood Culture - Preliminary Blood SPECIMEN COLLECTED A&P Assessment and plan (1) Acute respiratory failure with hypoxia: Acute respiratory failure with hypoxia on presentation with increased work of breathing, tachypnea, hypoxia on presentation, new oxygen requirement, requiring BiPAP support. Reviewed vitals, CBC, D-dimer, ABG, CMP, lactic acid, baseline and 2-hour troponin, NT proBNP, UA, serum ketones, respiratory viral panel, EKG on my interpretation with sinus tachycardia, left bundle branch block pending cardiac read, chest x-ray on my interpretation with diffuse interstitial opacities pending radiology read, reviewed ER note, discussed with ER physician. Respiratory viral panel is coming back positive for coronavirus, but looks like not COVID, is not clear whether she is having severe disease similar to COVID secondary to this virus with interstitial changes on chest x-ray, versus possible pulmonary edema with underlying coronary disease, with severe tachycardia and presentation, possibly leading to acute cardiac insufficiency, flash pulm edema, question of possible recent cardiac event, versus other cause. She has been treated with BiPAP, received Lasix, will continue IV diuretic at this time. LBBB on presentation was discussed with cardiology by ER physician, given multiple factors including time of onset of illness, troponin, and other factors she was not found to have a STEMI. Treat for suspected NSTEMI, noted rising troponin up to 59.72 hours. Certainly may be demand ischemia with underlying CAD, tachycardia, respiratory failure, but NSTEMI is possible. Discussed with anticoagulation with Lovenox, continue aspirin. Beta-janine. Statin. Continue to treat tachycardia, heart rate is showing improvement. Additionally discussed with her steroid for treatment of suspected severe atypical pneumonia secondary to coronavirus, will hold off on remdesivir given has not COVID-19. Continue empiric antibiotics given leukocytosis, recent viral illness, possible superimposed bacterial pneumonia. Received Vanco and Zosyn, to by mouth to help reduce intravenous volume. Collect sputum culture if able to provide, Legionella, bacterial antigens, MRSA PCR. Possible sepsis with sinus tachycardia, leukocytosis 17.04, pulmonary source suspected secondary pneumonia. Lactic acidosis 6.7, has been maintaining blood pressure so far. Would avoid fluid resuscitation given concern for pulmonary edema and atypical pneumonia. Will continue empirically with Levaquin for now (2) Coronavirus infection: Coronavirus infection but appears not COVID-19, with severe illness with diffuse interstitial changes, sinus tachycardia, possible superimposed bacterial infection with leukocytosis, tachycardia, lactic acidosis. D-dimer noted elevated 0.63. Also noted new transaminitis AST 79, ALT 52, alk phos 113, suspect secondary to viral infection. Follow-up liver parameters, follow-up D- dimer. Decadron. Due to risk of hyperglycemia with Decadron add insulin sliding scale as well has Lantus. Hyperglycemic on presentation. VTE prophylaxis. (3) NSTEMI (non-ST elevated myocardial infarction): Troponin series with a rise, 15 at baseline, 59.72 with 45 delta at 2 hours, complete troponin EKG series. EKG with new left bundle branch block, initially concern for possibility of STEMI equivalent, but discussed with cardiology by ER provider, considering multiple factors not found to be having STEMI equivalent, however, type I versus type II NSTEMI possible. Discussed with her anticoagulation with Lovenox, continue aspirin 325 mg. Metoprolol, statin. Monitor on telemetry due to risk of arrhythmia. Will obtain echocardiogram. Does have underlying coronary disease, previous stent in RCA after STEMI in 2017, but also 60% stenosis of LAD, 50% stenosis of LCx and 60% stenosis of OM1 back in 2017 for which continued on medical therapy. Cardiology consultation. (4) New onset left bundle branch block (LBBB): As above. Monitor on telemetry given she is on metoprolol, also receiving diltiazem gentleman. Received amiodarone and route as with tachycardia it was thought to be she was in ventricular tachycardia initially. (5) Tachycardia: As above. Continue Cardizem drip for now, wean down and off. On metoprolol at home, continue. Monitor given left bundle branch block. Complete troponin EKG series. Treat NSTEMI. Check magnesium. Check TSH. (6) Metabolic acidosis: Lactic acidosis likely secondary to acute respiratory failure, tachypnea, increased work of breathing, possible sepsis with leukocytosis, tachycardia, suspected pulmonary source. (7) Elevated d-dimer: Not impressive adjusted for age. Suspect secondary to coronavirus infection. Follow-up D-dimer level. Plan Hyperglycemia with DM2: Blood glucose 433, possibly stress related. Metabolic acidosis, but serum and urine ketones negative. Will start Lantus 10 units daily as she is also going to be on a steroid. Insulin sliding scale, Accu- Cheks. Consistent carbohydrate diet once resumed. CAD: Continue aspirin, beta-janine, statin. HTN: Monitor BPs, cont metoprolol HLD: cont statin Obesity: follow up w PCP regarding weight loss options. Requesting to confirm home medications, please review and reconcile once available. Attestations 2 Medical Necessity Statement*: Admission of over 2 midnights anticipated for assessment of management of acute respiratory failure with hypoxia, NSTEMI, new LBBB, possible flash pulm edema, pneumonia with severe coronavirus infection, superimposed bacterial infection suspected. Coding Level of Care Code Critical Care >/= 30 minutes Critical care time (in minutes): 40 The high probability of a clinically significant, sudden or life threatening deterioration, as referenced in this documentation, required my full and direct attention, intervention and personal management. The critical care time shown is in addition to time spent performing any reported separately billable procedures and includes the following: [x] Data and vital sign review and interpretation [x ] Patient assessment, examination and intervention [x] Medication orders and management [x] Patient/Family updates as able [x] Care Coordination and Documentation. Diagnoses Acute respiratory failure with hypoxia J96.01 Coronavirus infection B34.2 NSTEMI (non-ST elevated myocardial infarction) I21.4 New onset left bundle branch block (LBBB) I44.7 Tachycardia R00.0 Metabolic acidosis E87.20 Elevated d-dimer R79.89
[2023-04-30] MEDS: enoxaparin 100 mg/mL Syringe 110 MG SUBCUT ×2 (03:26→14:42)
[2023-04-30] MEDS: dexamethasone 10 mg/mL INJ 6 MG IVP (03:33)
[2023-04-30] MEDS: insulin glargine 100 units/1 mL 10 UNIT SUBCUT ×2 (03:42→20:26)
[2023-04-30] MEDS: pantoprazole 40 mg SDV IVP (03:43)
--- NOTE | 2023-04-30 03:44 | USCV_ITS ---
Kimberly Aldridge Age: 57 Gender: F : 1965 Exam Date: 04/30/2023 10:54 Ordering Phys: Alexandro Machuca MD Technologist: Saturnino Pastrana Exam Location: [facility] [place] Indication: nstemi BP: 109 / 66 HR: 90 Rhythm: Sinus Technical Quality: Adequate MEASUREMENTS (Male / Female) Normal Values 2D ECHO LVOT Diameter 2.0 cm LV Ejection Fraction MOD 2C 36.2 % LV Ejection Fraction 2C AL 0.0 % LA Diameter 3.8 cm RA Systolic Volume 4C AL 37.1 ml RA Systolic Volume 4C MOD 37.2 ml Aorta at Sinotubular Diameter 2.1 cm IVC Diameter 1.9 cm M-MODE LA Ao Ratio MM 1.4 AV Cusp Separation MM 1.5 cm DOPPLER AV Peak Velocity 174.0 cm/s LVOT Peak Velocity 72.0 cm/s AV Area Cont Eq vti 1.7 cm squared AV Area Cont Eq pk 1.3 cm squared MV Peak Velocity 114.0 cm/s MV Area PHT 15.4 cm squared Mitral E to A Ratio 1.4 TV Peak Velocity 245.0 cm/s TR Peak Velocity 251.0 cm/s TR Peak Gradient 25.2 mmHg TR Mean Velocity 194.0 cm/s TR Mean Gradient 16.1 mmHg TR Velocity Time Integral 58.3 cm PV Peak Velocity 84.0 cm/s RV Ejection Time 0.3 s FINDINGS Left Ventricle Left ventricle appears dilated. LV systolic function is severely reduced with EF of 25-30%. Severe global hypokinesis seen. Right Ventricle Normal in size and function Right Atrium Normal in size Left Atrium Dilated Mitral Valve Moderate mitral annular calcification. Mild mitral regurgitation. Aortic Valve Structurally normal aortic valve. No significant stenosis or regurgitation. Tricuspid Valve Mild tricuspid regurgitation. Pulmonary artery systolic pressure is normal. Pulmonic Valve Trace pulmonic regurgitation. Pericardium Normal Aorta Normal in size IVC Appears to be normal CONCLUSIONS LV systolic function is severely reduced with EF of 25 to 30%. Left atrial dilation. Mild mitral regurgitation Mild tricuspid regurgitation Trace pulmonic regurgitation Compared to prior echocardiogram from 2021, LV systolic function has worsened significantly. Kelvin Clinton MD (Electronically Signed) Final Date: 30 April 2023 15:36 S
[2023-04-30 04:08] LABS: Magnesium 2.3 mg/dL (1.7-2.3); Thyroid Stimulating Hormone 3.53 uIU/mL (0.27-4.20)
[2023-04-30 04:12] LABS: Glucose Point of Care 415 mg/dL (70-110)
--- NOTE | 2023-04-30 04:18 | ED_ITS ---
HPI - SOB/Dyspnea 2 General: Chief Complaint: Shortness of Breath/Dyspnea Stated Complaint: RESP. DISTRESS Time Seen by Provider: 04/30/23 00:06 History of Present Illness: HPI Narrative: 57-year-old female with a history of cor onary disease and diabetes. She presents with worsening shortness of breath starting in the morning, and suddenly much worse at 10 PM. She does not complain of chest pain. She has had a mild cough, that has been mostly nonproductive. No fever. She is in significant respiratory distress on arrival. Associated symptoms: Deny chest pain, fever(s) or vomiting Review of Systems 2 Const: Denies: fever(s) ENMT: Denies: throat pain Card: Denies: chest pain Resp: Reports: dyspnea and non-productive cough GI: Denies: vomiting Musc: Denies: neck pain Skin/Breast: Denies: rash Neuro: Reports: headache(s) Psych: Reports: anxiety PFSH ED 2 PFSH: Medical History Hyperlipidemia CAD (coronary artery disease) CHF (congestive heart failure) HTN (hypertension) History of [place] (myocardial infarction) Type 2 diabetes mellitus Surgical History Status post colonoscopy S/P laparoscopic appendectomy (02/04/20) H/O heart artery stent Family History Mother Heart disease Father Heart disease Social History Smoking and tobacco/nicotine status: never used tobacco/nicotine Alcohol intake: never Substance/Drug Use: never Marital status: Number of children: 3 Current occupational status: employed Physical Exam 2 Const: GENERAL APPEARANCE: in distress, anxious and ill appearing HENMT: COMMON NORMALS: normocephalic and atraumatic HEAD & SCALP: n ormocephalic and atraumatic FACE & SINUS: normal facial exam MOUTH: Normal oral and palatal mucosa present Eye: COMMON NORMALS: Equal, round and reactive pupils present PUPIL: Yes Equal, round and reactive pupils present Neck/C-Spine: GENERAL: Yes trachea midline Chest: CHEST: Yes Symmetrical chest wall rise Resp: EFFORT & INSPECTION: Yes tachypneic and Yes respiratory distress A USCULTATION: rhonchi Cardio: COMMON NORMALS: regular rhythm RATE: tachycardic RHYTHM: regular rhythm GI: COMMON NORMALS: Normal to inspection, nondistended, normoactive bowel sounds present Extremity: COMMON NORMALS: no pedal edema Neuro: SAMARA COMA SCALE: document GCS findings Samara coma scale eye opening: Spontaneous [place] coma scale verbal response: Orientated Samara coma scale motor response: Obey commands [place] coma scale total score: 15 Skin: COMMON NORMALS: no rashes or lesions noted GENERAL SKIN EXAM: no rashes or lesions noted Course 2 Vital Signs: Vital signs: Vital Signs Temperature 98.1 F 04/30/23 04:00 Pulse Rate 98 04/30/23 04:10 Respiratory Rate 21 H 04/30/23 04:10 Blood Pressure 110/65 04/30/23 04:10 Pulse Oximetry 94 04/30/23 04:10 Oxygen Delivery Me thod Nasal Cannula 04/30/23 04:00 Oxygen Flow Rate 3.5 04/30/23 04:00 Fraction of Inspir ed Oxygen 65 04/30/23 00:34 MDM - SOB/Dyspnea Medical Decision Making Patient presented with heart rates in the 170s, respiratory rate in the 40s. She was placed on BiPAP. She was given Lasix 80 mg IV, Ativan 1 mg, and blood gas was drawn. Breathing improved on the Ativan and with BiPAP. She is still tachycardic, so Cardizem was started. She received a 20 mg bolus, followed by infusion. Respiratory rate went from 40s to 20s, heart rate down to 110s. X- ray showed what appeared to be pulmonary edema initially. Her white blood cell count is 17, creatinine 1.1. Bicarbonate is 19. Lactic 6.7. Antibiotic coverage was started after blood cultures. First troponin was 15. Cardiology was consulted from the ER given history of triple-vessel moderate disease back in 2017, with pulmonary edema and significant tachycardia. The recommendations are to treat pulmonary edema, follow-up troponins, and they will see her later this morning. She will go to the ICU. Hospitalist is seeing the patient in the ER. Lab Data 04/30/23 00:13 04/30/23 00:13 Labs/Radiology: Radiology Impressions Chest X-Ray 04/30/23 00:07 IMPRESSION: Moderate interstitial coarsening is nonspecific. Differential diagnosis includes chronic lung change, pulmonary edema, and atypical infection. Laboratory Results WBC 17.04 10^3/uL (3.29-11.43) H 04/30/23 00:13 RBC 5.35 10^6/uL (3.85-5.65) 04/30/23 00:13 Hgb 15.30 g/dL (11.27-16.99) 04/30/23 00:13 Hct 47.4 % (36-47) H 04/30/23 00:13 MCV 88.6 fl (85-98) 04/30/23 00:13 MCH 28.6 pg (27-33) 04/30/23 00:13 MCHC 32.3 g/dL (30-55) 04/30/23 00:13 RDW 13.7 % (12.1-15.1) 04/30/23 00:13 Plt Count 426 10^3/cmm (157-399) H 04/30/23 00:13 MPV 9.2 fL (7.4-10.4) 04/30/23 00:13 Neut % (Auto) 29.8 % 04/30/23 00:13 Lymph % (Auto) 61.9 % 04/30/23 00:13 Lewis % (Auto) 4.0 % 04/30/23 00:13 Eos % (Auto) 3.1 % 04/30/23 00:13 Baso % (Auto) 0.6 % 04/30/23 00:13 Neut # (Auto) 5.07 10^3/uL (1.8-7.7) 04/30/23 00:13 Lymph # (Auto) 10.5 10^3/uL (0.8-4.8) H 04/30/23 00:13 Lewis # (Auto) 0.7 10^3/uL (0.2-0.9) 04/30/23 00:13 Eos # (Auto) 0.5 10^3/uL (0.0-0.8) 04/30/23 00:13 Baso # (Auto) 0.1 10^3/uL (0.0-0.1) 04/30/23 00:13 Nucleated RBC % (auto) 0 % 04/30/23 00:13 Nucleated RBCs # 0.0 /100WBC 04/30/23 00:13 D-Dimer 0.63 ug/mLFEU (0-0.59) H 04/30/23 00:13 Specimen Type Arterial 04/30/23 00:08 Sample Site Radial, right 04/30/23 00:08 ABG pH 7.18 (7.35-7.45) L* 04/30/23 00:08 ABG pCO2 49.8 mmHg (35-45) H 04/30/23 00:08 ABG pO2 96.0 mmHg (80.0-100.0) 04/30/23 00:08 ABG PO2/FiO2 Ratio 0 04/30/23 00:08 ABG HCO3 18.7 mmol/L (22-26) L 04/30/23 00:08 ABG Base Excess -9.8 mmol/L (-2.0-2.0) L 04/30/23 00:08 Ayaz Test Pos 04/30/23 00:08 Hematocrit 46.2 % (37-47) 04/30/23 00:08 Hgb O2 Saturation 95.6 % (95-100) 04/30/23 00:08 Carboxyhemoglobin 0.5 %THgb (0.4-20.1) 04/30/23 00:08 Methemoglobin 0.1 % (0.4-1.5) L 04/30/23 00:08 Total Hemoglobin 15.1 g/dL (12-16) 04/30/23 00:08 O2 Delivery Device Bipap 04/30/23 00:08 FiO2 55.0 % 04/30/23 00:08 Olive Grader ID [email or web address] 04/30/23 00:08 Sodium 135 mmol/L (136-145) L 04/30/23 00:13 Potassium 3.9 mmol/L (3.5-5.1) 04/30/23 00:13 Chloride 96 mmol/L (98-107) L 04/30/23 00:13 Carbon Dioxide 19 mmol/L (22-29) L 04/30/23 00:13 Anion Gap 23.9 (5-19) H 04/30/23 00:13 BUN 11 mg/dL (6-20) 04/30/23 00:13 Creatinine 1.1 mg/dL (0.5-0.9) H 04/30/23 00:13 GFR Calculation 51.2 mL/min (90-130) L 04/30/23 00:13 Glucose 433 mg/dL (65-115) H 04/30/23 00:13 Calculated Osmolality 298 mOsm/kg (285-295) H 04/30/23 00:13 Lactic Acid 6.7 mmol/L (0.5-2.2) H* 04/30/23 00:13 Calcium 9.1 mg/dL (8.5-10.5) 04/30/23 00:13 Magnesium 2.3 mg/dL (1.7-2.3) 04/30/23 00:13 Total Bilirubin 0.5 mg/dL (0.15-1.2) 04/30/23 00:13 AST 79 U/L (0-32) H 04/30/23 00:13 ALT 52 U/L (0-33) H 04/30/23 00:13 Alkaline Phosphatase 113 U/L (35-105) H 04/30/23 00:13 Troponin T Baseline 15 ng/L (0-10) H 04/30/23 00:13 Troponin T 120 Minute 59.72 ng/L (0-10) H 04/30/23 01:56 Delta Troponin T 44.72 ABS# (0-10) H* 04/30/23 01:56 NT-Pro-B Natriuret Pep 645 pg/mL (0-125) H 04/30/23 00:13 Total Protein 7.1 g/dL (6.6-8.7) 04/30/23 00:13 Albumin 4.3 g/dL (3.5-5.2) 04/30/23 00:13 Globulin 2.8 g/dL (1.3-4.6) 04/30/23 00:13 TSH 3.53 uIU/mL (0.27-4.20) 04/30/23 00:13 Urine Color Colorless (Yellow) 04/30/23 01:05 Urine Appearance Clear (CLEAR) 04/30/23 01:05 Urine pH 6 (5-7) 04/30/23 01:05 Ur Specific [place] 1.005 (1.005-1.030) 04/30/23 01:05 Urine Protein Neg (Negative) 04/30/23 01:05 Urine Glucose (UA) 4+ (Normal) H 04/30/23 01:05 Urine Ketones Negative (Negative) 04/30/23 01:05 Urine Blood Neg (Negative) 04/30/23 01:05 Urine Nitrate Negative (Negative) 04/30/23 01:05 Urine Bilirubin Neg (Negative) 04/30/23 01:05 Urine Urobilinogen Norm mg/dL (Negative) 04/30/23 01:05 Ur Leukocyte Esterase Negative (Negative) 04/30/23 01:05 Serum Ketones Negative (Negative) 04/30/23 00:23 Adenovirus (PCR) Not detected (NOT DETECT) 04/30/23 00:33 C. pneumoniae DNA (PCR) Not detected (NOT DETECT) 04/30/23 00:33 Coronavirus 229E (PCR) Detected (NOT DETECT) A 04/30/23 00:33 Human Metapneumovir PCR Not detected (NOT DETECT) 04/30/23 00:33 Influenza A (H1) PCR Not detected (NOT DETECT) 04/30/23 00:33 Influ A (H1/09) PCR Not detected (NOT DETECT) 04/30/23 00:33 Influenza A (H3) PCR Not detected (NOT DETECT) 04/30/23 00:33 Influenza Type A (PCR) Not detected (NOT DETECT) 04/30/23 00:33 Influenza Type B (PCR) Not detected (NOT DETECT) 04/30/23 00:33 M. pneumoniae (PCR) Not detected (NOT DETECT) 04/30/23 00:33 Parainfluenza 1 (PCR) Not detected (NOT DETECT) 04/30/23 00:33 Parainfluenza 2 (PCR) Not detected (NOT DETECT) 04/30/23 00:33 Parainfluenza 3 (PCR) Not detected (NOT DETECT) 04/30/23 00:33 Parainfluenza 4 (PCR) Not detected (NOT DETECT) 04/30/23 00:33 RSV Type A (PCR) Not detected (NOT DETECT) 04/30/23 00:33 RSV Type B (PCR) Not detected (NOT DETECT) 04/30/23 00:33 Entero/Rhino (PCR) Not detected (NOT DETECT) 04/30/23 00:33 SARS-CoV-2 (PCR) Not detected (NOT DETECT) 04/30/23 00:33 All radiology interpretation(s) finalized by discharge Critical Care Time 2 Critical Care Time: Critical Care Time: Yes Total Critical Care Time: 40 Attestation: This case had a high probability of a clinically significant, sudden, or life threatening deterioration of this patient's condition which required my full and direct attention, intervention and personal management. Time is independent of any procedures performed. Discharge Plan Discharge Patient Disposition: Admitted As Inpatient Admit Provider: Alexandro Machuca Clinical Impression: Acute respiratory failure with hypoxia, Tachycardia, Metabolic acidosis, New onset left bundle branch block (LBBB), NSTEMI (non-ST elevated myocardial infarction), Coronavirus infection Condition: Critical Coding Level of Care Code ED [employer] [facility] for Abdirahman Alejandre
[2023-04-30] MEDS: dilTIAZem 100 MG in sodium chloride 0.9% (add-van) 100 ML 15 MG IV (04:44)
[2023-04-30] MEDS: insulin lispro 100 unit/1 mL 12 UNIT SUBCUT (05:20)
[2023-04-30] MEDS: aspirin 325 mg Tablet PO (05:20)
--- NOTE | 2023-04-30 05:48 | ECG_ITS ---
[facility] Test Date: 2023-04-30 Pat Name: Kimberly Aldridge Department: Room: [facility] Gender: Female Edger Liner: : 1965 Requested By: Tavon Malagon Order Number: [id number] Airam MD: Kelvin Clinton M.D. Measurements Intervals [place] Rate: 94 P: 72 OK: 159 QRS: -25 QRSD: 158 T: 78 QT: 410 QTc: 513 Interpretive Statements SINUS RHYTHM INTERVENTRICULAR CONDUCTION DELAY Compared to ECG 04/30/2023 02:11:02 Sinus tachycardia no longer present Ventricular premature complex(es) no longer present Electronically Signed On 05-01-2023 9:38:08 TUBE CUTTER OPERATOR by Kelvin Clinton M.D. [id number]
[2023-04-30 06:18] LABS: D Dimer 1.97 ug/mLFEU (0-0.59)
[2023-04-30 06:22] LABS: Lactic Acid level (Lactate) 2.2 mmol/L (0.5-2.2)
[2023-04-30] MEDS: levoFLOXacin 750 mg Tablet PO (06:23)
[2023-04-30 06:24] LABS: Troponin 5 6HR 129.1 ng/L (0-10)
[2023-04-30 06:25] LABS: Troponin 5 6HR Delta 114.1 ng/L (0-12)
[2023-04-30 08:00] LABS: Glucose Point of Care 357 mg/dL (70-110)
[2023-04-30] MEDS: insulin lispro 100 unit/1 mL SUBCUT ×4 (08:02→20:25)
[2023-04-30] MEDS: FUROsemide 10 mg/mL SDV 4mL 40 MG IVP (08:02)
[2023-04-30] MEDS: atorvastatin 40 mg Tablet PO (08:22)
[2023-04-30] MEDS: metoprolol tartrate 25 mg Tablet PO ×2 (08:22→20:26)
[2023-04-30] MEDS: ipratropium-albuterol 3 mL Neb INHALATION ×3 (08:41→20:13)
--- NOTE | 2023-04-30 09:20 | PM.CONSULT ---
Providers/Reason For Consult Consulting Physician/Specialty*: Kelvin Clinton MD/ Cardiology Reason for Consult*: NSTEMI Requesting Physician: Dr Woods Attending Physician: Lokesh Nice MD Primary Care Provider: Romina Walton MD History of Present Illness History of Present Illness Kimberly Aldridge is a 57 year old female with past medical history of CAD with prior RCA stent, diabetes, hyperlipidemia who presented to hospital with worsening shortness of breath that started yesterday morning. She came to hospital last night because she could not breathe well. Chest x-ray consistent with pulmonary edema. She is also found to have a coronavirus infection. Says that was having some cough and respiratory tract symptoms for last 1 week. Her troponin went up significantly from baseline of 15 to 129 at 6 hours. Echocardiogram performed today shows severely reduced LV systolic function with EF of 25 to 30%. This is a significant change from 2 years ago when it was normal. EKG shows left bundle branch block. This is new compared to before. No chest pain Review of Systems Const: Denies: fever(s) ENMT: Denies: throat pain Card: Denies: chest pain Resp: Reports: dyspnea and non-productive cough GI: Denies: vomiting Musc: Denies: neck pain Skin/Breast: Denies: rash Neuro: Reports: headache(s) Psych: Reports: anxiety Medications/Allergies Home Medications Medication Instructions Recorded Confirmed Last Taken Type aspirin 325 mg tablet 325 mg PO DAILY@05 02/04/20 04/30/23 02/04/20 05:00 History glipizide 5 mg tablet, extended 5 mg PO BID@05,18 02/04/20 04/30/23 02/04/20 05:00 History release 24 hr metformin 750 mg tablet,extended 750 mg PO BID 02/04/20 04/30/23 Unknown History release 24 hr simvastatin 80 mg tablet 80 mg PO DAILY #90 tabs 03/01/21 04/30/23 Unknown Rx naproxen sodium 220 mg capsule 220 - 440 mg PO Q12H PRN Pain 04/30/23 04/30/23 Unknown History (Aleve) Allergies Allergy/AdvReac Type Severity Reaction Status Date / Time No Known Allergies Allergy Verified 04/30/23 09:41 Current Medications Generic Name Dose Route Start Last Admin Trade Name Freq PRN Reason Stop Dose Admin Albuterol/Ipratropium 3 ml 04/30/23 08:00 04/30/23 08:41 Ipratropium-Albuterol 3 Ml Neb INHALATION 3 ml Q6H.RESP KEISHA Administration Aspirin 325 mg 04/30/23 05:00 04/30/23 05:20 Aspirin 325 Mg Tablet PO 325 mg DAILY@05 KEISHA Administration Atorvastatin Calcium 40 mg 04/30/23 09:00 04/30/23 08:22 Atorvastatin 40 Mg Tablet PO 40 mg DAILY KEISHA Administration Dexamethasone 6 mg 04/30/23 03:15 04/30/23 03:33 Dexamethasone 10 Mg/Ml Inj IVP 6 mg Q24H KEISHA Administration Enoxaparin Sodium 110 mg 04/30/23 03:00 04/30/23 03:26 Enoxaparin 100 Mg/Ml Syringe 1 mg/kg (110 mg) 110 mg SUBCUT Administration Q12H KEISHA Furosemide 40 mg 04/30/23 08:00 04/30/23 08:02 Furosemide 10 Mg/Ml Sdv 4ml IVP 40 mg Q24H KEISHA Administration Diltiazem HCl 100 mg/ Sodium 100 mls @ 0 mls/hr 04/30/23 00:15 04/30/23 06:27 Chloride IV 10 mg/hr .Q0M KEISHA 10 mls/hr Titration Protocol Per Protocol Insulin Glargine 10 unit 04/30/23 03:05 04/30/23 03:42 Insulin Glargine 100 Units/1 Ml SUBCUT 10 unit BEDTIME KEISHA Administration Insulin Human Lispro 0 unit 04/30/23 08:00 04/30/23 08:02 Insulin Lispro 100 Unit/1 Ml SUBCUT 12 unit WM&BEDTIME KEISHA Administration Protocol Levofloxacin 750 mg 04/30/23 06:00 04/30/23 06:23 Levofloxacin 750 Mg Tablet PO 750 mg DAILY@0600 KEISHA Administration Protocol Metoprolol Tartrate 25 mg 04/30/23 09:00 04/30/23 08:22 Metoprolol Tartrate 25 Mg Tablet PO 25 mg BID@0900,2100 KEISHA Administration Pantoprazole Sodium 40 mg 04/30/23 03:30 04/30/23 03:43 Pantoprazole 40 Mg Sdv IVP 40 mg Q24H KEISHA Administration PFSH Acute PFSH: Medical History Hyperlipidemia CAD (coronary artery disease) CHF (congestive heart failure) HTN (hypertension) History of [place] (myocardial infarction) Type 2 diabetes mellitus Surgical History Status post colonoscopy S/P laparoscopic appendectomy (02/04/20) H/O heart artery stent Family History Mother Heart disease Father Heart disease Social History Smoking and tobacco/nicotine status: never used tobacco/nicotine Alcohol intake: never Substance/Drug Use: never Marital status: Number of children: 3 Current occupational status: employed Vitals/I&O/Wt Last Vital Signs Temp 98.1 F 04/30/23 04:00 Pulse 93 04/30/23 08:46 Resp 18 04/30/23 08:41 BP 109/66 04/30/23 08:30 Pulse Ox 97 04/30/23 08:41 O2 Del Method Nasal Cannula 04/30/23 08:41 O2 Flow Rate 3.5 04/30/23 08:41 FiO2 65 04/30/23 00:34 04/29/23 04/30/23 04/30/23 22:59 06:59 14:59 Intake Total 88.541 / 88.541 450 / 450 Output Total 1000 / 1000 Balance -911.459 / -911.459 450 / 450 Weight last 48 hrs Weight 228 lb 8 oz Weight 228 lb 8 oz Weight 237 lb 9.6 oz Weight 240 lb Physical Exam Narrative: GENERAL: Patient is alert, awake and oriented x3. [] NECK: No jugular vein distension. [] HEENT: No cyanosis. No icterus. No pallor. [] HEART: Regular S1 and S2. No murmur, rub or gallop. [] LUNGS: Clear to auscultate bilaterally. [] CENTRAL NERVOUS SYSTEM: Grossly nonfocal. [] EXTREMITIES: Lower extremities with 1+ edema bilaterally. Urinary Catheter Management: Constantino: Cath Placed During This Visit: yes Reason for Continuing Indwelling Catheter: Accurate Measurement of Urinary Output in Critically Ill Patients Urinary Catheter Date of Insertion: 04/30/23 Urinary Catheter Time of Insertion: 01:18 Data 05/01/23 03:53 05/01/23 03:53 Micro: Microbiology 04/30/23 03:55 Legionella Urinary Antigen - Final Urine,Voided Bacterial Antigens - Final 04/30/23 00:30 Blood Culture - Preliminary Blood SPECIMEN COLLECTED 04/30/23 00:20 Blood Culture - Preliminary Blood SPECIMEN COLLECTED A&P Assessment and plan (1) CAD (coronary artery disease): Qualifiers: Coronary Disease-Associated Artery/Lesion type: [place] artery [place] vs. transplanted heart: [place] heart Associated angina: with unspecified form of angina Qualified Code(s): I25.119 - Atherosclerotic heart disease of [place] coronary artery with unspecified angina pectoris (2) Hyperlipidemia: (3) NSTEMI (non-ST elevated myocardial infarction): (4) CHF (congestive heart failure): Qualifiers: Heart failure type: diastolic Heart failure chronicity: chronic Qualified Code(s): I50.32 - Chronic diastolic (congestive) heart failure (5) New onset left bundle branch block (LBBB): (6) Tachycardia: Plan Patient has presented with pulmonary edema. Also has significantly elevated troponins. LV systolic function has decreased and is severely reduced compared to before. Continue diuresis today. N.p.o. after midnight. Plan for right and left-sided heart catheterization tomorrow. Continue anticoagulation and aspirin Close I and Os. Monitor renal function Thank you for involving us with care of this patient. We will continue to follow. Please call with questions. Consult Attestations Medical Necessity Statement: Care expected to cross 2 midnights. Coding Level of Care Code Acute Code for [facility] Diagnoses Coronary artery disease involving [place] coronary artery of [place] heart with angina pectoris I25.119 Coronary Disease-Associated Artery/Lesion type: [place] artery [place] vs. transplanted heart: [place] heart Associated angina: with unspecified form of angina Hyperlipidemia E78.5 NSTEMI (non-ST elevated myocardial infarction) I21.4 Chronic diastolic congestive heart failure I50.32 Heart failure type: diastolic Heart failure chronicity: chronic New onset left bundle branch block (LBBB) I44.7 Tachycardia R00.0
--- NOTE | 2023-04-30 09:44 | PC.PHAR ---
pt states she takes care of her own medications-pt states she hasnt taken these medications for months- farxiga 10mg daily (ext shows last filled 10/10/22 90d/s),hctz 12.5mg daily (ext shows last filled 10/10/22 90d.s)metoprolol succinate er 25mg bid (ext shows last filled 10/09/22 90d/s) or a multivitamin-pt states she is almost out of glipizide er 5mg bid ext shows last filled 01/04/23 90d/s,metformin er 750mg bid ext shows last filled 01/05/23 90d/s-pt states she has a build up of zocor 80mg daily ext shows last filled 01/06/23 90d/s
[2023-04-30 11:55] LABS: Estmated Average Glucose 200; Hemoglobin A1C 8.6 % (4.0-6.0)
[2023-04-30 12:27] LABS: Glucose Point of Care 404 mg/dL (70-110)
--- NOTE | 2023-04-30 13:41 | PM.PN ---
Subjective Subjective: Patient was seen this morning, family members at bedside, she tells me that she feels significantly better after diuresis, she has had about 4 L urine output, denies any current fevers, chills, currently no chest pain she has been reporting increased shortness of breath, shortness of breath with exertion now progressing to rest, no lightheadedness, no dizziness no recent surgeries, no recent travel, about a week ago, she had some viral illness and since then, her condition has significantly worsened, does have a cough, no fevers, denies any fevers, night sweats, no weight loss, no hemoptysis, does report a history of CAD last cardiac stent was placed in 2017 Vitals/I&O/Wt Last Vital Signs Temp 98.1 F 04/30/23 04:00 Pulse 85 04/30/23 12:30 Resp 21 H 04/30/23 12:00 BP 101/66 04/30/23 12:30 Pulse Ox 97 04/30/23 12:30 O2 Del Method Nasal Cannula 04/30/23 08:41 O2 Flow Rate 3.5 04/30/23 08:41 FiO2 65 04/30/23 00:34 04/29/23 04/30/23 04/30/23 22:59 06:59 14:59 Intake Total 88.541 / 88.541 781.167 / 781.167 Output Total 1000 / 1000 1000 / 1000 Balance -911.459 / -911.459 -218.833 / -218.833 Weight last 48 hrs Weight 103.646 kg Weight 103.646 kg Weight 107.774 kg Weight 108.862 kg Physical Exam Const: COMMON NORMALS: no acute distress and patient oriented x3 Resp: COMMON NORMALS: normal respiratory effort, No retractions and No use of accessory muscles OTHER: Wheezing and crackles in all lung paul Cardio: COMMON NORMALS: regular rate, regular rhythm, S1 normal heart sound present and S2 normal heart sound present RATE: regular rate RHYTHM: regular rhythm HEART SOUNDS: S1 normal heart sound present and S2 normal heart sound present GI: COMMON NORMALS: Normal to inspection, nondistended, normoactive bowel sounds present and non-tender Extremity: NARRATIVE EXTREMITY EXAM: 1+ pitting edema Neuro: COMMON NORMALS: patient oriented x3 Psych: COMMON NORMALS: mental status grossly normal Urinary Catheter Management: Constantino: Cath Placed During This Visit: yes Reason for Continuing Indwelling Catheter: Accurate Measurement of Urinary Output in Critically Ill Patients Urinary Catheter Date of Insertion: 04/30/23 Urinary Catheter Time of Insertion: 01:18 Data 04/30/23 00:13 04/30/23 00:13 Micro: Microbiology 04/30/23 03:55 Legionella Urinary Antigen - Final Urine,Voided Bacterial Antigens - Final 04/30/23 00:30 Blood Culture - Preliminary Blood SPECIMEN COLLECTED 04/30/23 00:20 Blood Culture - Preliminary Blood SPECIMEN COLLECTED A&P Assessment and plan (1) Acute respiratory failure with hypoxia: Multifactorial -Associated with coronavirus -Fluid overload, CHF exacerbation -Atypical pneumonia? Plan -Monitor in ICU closely -Currently on 3 L, can use BiPAP during the day as needed for shortness of breath -Monitor respiratory status closely -Stop Levaquin and switch to Zosyn -Continue IV diuresis -Continue Decadron -Pro-Dereck, CRP, ordered -Venous ultrasound ordered -Follow blood cultures, sputum cultures (2) Coronavirus infection: - As above (3) NSTEMI (non-ST elevated myocardial infarction): Does have underlying coronary disease, previous stent in RCA after STEMI in 2017, but also 60% stenosis of LAD, 50% stenosis of LCx and 60% stenosis of OM1 back in 2017 for which continued on medical therapy. -With new onset left bundle branch block, ventricular tachycardia Plan -Serial EKGs, serial troponins, telemetry monitoring -Cardiac echo -Cardiology consulted, plans on coronary angiography tomorrow morning -Continue aspirin -Continue statin -Continue beta-janine -Continue therapeutic Lovenox (4) New onset left bundle branch block (LBBB): (5) Tachycardia: - Off Cardizem drip -Continue metoprolol (6) Metabolic acidosis: Lactic acidosis likely secondary to acute respiratory failure, tachypnea, increased work of breathing, possible sepsis with leukocytosis, tachycardia, suspected pulmonary source. (7) Elevated d-dimer: Not impressive adjusted for age. Suspect secondary to coronavirus infection. Follow-up D-dimer level. (8) Atypical pneumonia: (9) CHF (congestive heart failure): Qualifiers: Heart failure type: diastolic Heart failure chronicity: chronic Qualified Code(s): I50.32 - Chronic diastolic (congestive) heart failure (10) CAD (coronary artery disease): Qualifiers: Coronary Disease-Associated Artery/Lesion type: [place] artery [place] vs. transplanted heart: [place] heart Associated angina: with unspecified form of angina Qualified Code(s): I25.119 - Atherosclerotic heart disease of [place] coronary artery with unspecified angina pectoris Plan Hyperglycemia with DM2: Blood glucose 433, possibly stress related. Metabolic acidosis, but serum and urine ketones negative. Will start Lantus 10 units daily as she is also going to be on a steroid. Insulin sliding scale, Accu-Cheks. Consistent carbohydrate diet once resumed. Check A1c CAD: Continue aspirin, beta-janine, statin. HTN: Monitor BPs, cont metoprolol HLD: cont statin Obesity: follow up w PCP regarding weight loss options. Plan for today monitor blood sugars closely, venous ultrasound, cardiac echo, continue diuresis broaden antibiotic coverage to Zosyn n.p.o. midnight for coronary angiography tomorrow continue therapeutic Lovenox, spoke to patient, spoke to cardiology, spoke to patient's family, spoke to nursing staff Attestations Medical Necessity Statement*: Patient requires hospitalization for acute hypoxic respiratory failure, concern for coronavirus [id number], atypical pneumonia, fluid overload, elevated D-dimer NSTEMI Diagnoses Acute respiratory failure with hypoxia J96.01 Coronavirus infection B34.2 NSTEMI (non-ST elevated myocardial infarction) I21.4 New onset left bundle branch block (LBBB) I44.7 Tachycardia R00.0 Metabolic acidosis E87.20 Elevated d-dimer R79.89 Atypical pneumonia J18.9 Chronic diastolic congestive heart failure I50.32 Heart failure type: diastolic Heart failure chronicity: chronic Coronary artery disease involving [place] coronary artery of [place] heart with angina pectoris I25.119 Coronary Disease-Associated Artery/Lesion type: [place] artery [place] vs. transplanted heart: [place] heart Associated angina: with unspecified form of angina
[2023-04-30] MEDS: piperacillin-tazobactam 3.375 GM in sodium chloride 0.9% (plus) 50 ML IV ×2 (14:41→21:42)
[2023-04-30 14:55] LABS: Procalcitonin 0.05 ng/mL (0-0.5)
[2023-04-30 15:28] LABS: Glucose Point of Care 363 mg/dL (70-110)
--- NOTE | 2023-04-30 15:35 | PC.NURSE ---
pt anxious states is a little shaky accuckeck done and information given on hyper and hypo glycemia reassured , appears stress by limited fluid intake and overall information
[2023-04-30 17:30] LABS: Glucose Point of Care 365 mg/dL (70-110)
[2023-04-30 20:21] LABS: Glucose Point of Care 390 mg/dL (70-110)
[2023-05-01] VITALS (27 sets, daily range): BP systolic 77–124; BP diastolic 40–89; PULSE 83–113; RESP 14–40; TEMP 36.4–36.9; O2SAT 93–100
[2023-05-01] MEDS: enoxaparin 100 mg/mL Syringe 110 MG SUBCUT ×2 (03:00→15:09)
[2023-05-01] MEDS: pantoprazole 40 mg SDV IVP (03:00)
[2023-05-01] MEDS: dexamethasone 10 mg/mL INJ 6 MG IVP (03:01)
[2023-05-01] MEDS: ipratropium-albuterol 3 mL Neb INHALATION ×3 (03:04→20:17)
[2023-05-01 04:38] LABS: Basophils % 0.2 %; Eosinophils % 0.1 %; Hematocrit 40.5 % (36-47); Lymphocytes # 1.4 10^3/uL (0.8-4.8); Lymphocytes % 17.1 %; Mean Corpuscular HGB Conc 32.6 g/dL (30-55); Mean Corpuscular Hemoglobin 28.1 pg (27-33); Mean Corpuscular Volume 86.4 fl (85-98); Mean Platelet Volume 9.4 fL (7.4-10.4); Monocytes # 0.7 10^3/uL (0.2-0.9); Monocytes % 8.8 %; Neutrophils # 6.16 10^3/uL (1.8-7.7); Neutrophils % 73.3 %; Nucleated Red Blood Cells % 0 %; Platelet Count 301 10^3/cmm (157-399); Red Blood Count 4.69 10^6/uL (3.85-5.65); Red Cell Distribution Width 13.8 % (12.1-15.1); White Blood Count 8.41 10^3/uL (3.29-11.43)
[2023-05-01 04:59] LABS: Lactate (Lactic Acid level) 1.8 mmol/L (0.5-2.2)
[2023-05-01 05:00] LABS: Alanine Aminotransferase 41 U/L (0-33); Albumin Level 3.9 g/dL (3.5-5.2); Alkaline Phosphatase 81 U/L (35-105); Anion Gap 17.1 (5-19); Aspartate Amino Transferase 20 U/L (0-32); Blood Urea Nitrogen 18 mg/dL (6-20); Carbon Dioxide 24 mmol/L (22-29); Chloride 97 mmol/L (98-107); Creatinine Clr Calc Pharmacy 83.8744; Globulin 2.7 g/dL (1.3-4.6); Glomerular Filtration Rate 64.5 mL/min (90-130); Glucose 301 mg/dL (65-115); Osmolality Calculated 293 mOsm/kg (285-295); Potassium 3.1 mmol/L (3.5-5.1); Sodium 135 mmol/L (136-145); Total Bilirubin 0.5 mg/dL (0.15-1.2); Total Protein 6.6 g/dL (6.6-8.7)
[2023-05-01] MEDS: aspirin 325 mg Tablet PO (05:05)
[2023-05-01] MEDS: piperacillin-tazobactam 3.375 GM in sodium chloride 0.9% (plus) 50 ML IV ×3 (05:05→21:14)
[2023-05-01 05:07] LABS: NT Pro B Type Natriuretic Pept 1632 pg/mL (0-125)
[2023-05-01 05:09] LABS: C Reactive Protein 13.8 mg/L (0.0-4.9)
[2023-05-01 05:21] LABS: ABG PCO2 36.9 mmHg (35-45); ABG PH Result 7.45 (7.35-7.45); Arterial Blood Gas Hematocrit 42.2 % (37-47); Blood Gas Allen Test Pos; Blood Gas Operator Identificat JB; Blood Gas Sample Site Radial, right; Blood Gas Sample Type Arterial; HCO3 ABG 25.8 mmol/L (22-26); Oxygen Device NC
[2023-05-01 05:35] LABS: Glucose Point of Care 327 mg/dL (70-110)
--- NOTE | 2023-05-01 06:00 | USCV_ITS ---
Kimberly Aldridge Age: 57 Gender: F : 1965 Exam Date: 05/01/2023 06:48 Ordering Phys: Lokesh Nice MD Technologist: RONALD Exam Location: [facility] [place] Indication: LE Swelling HISTORY: Lower extremity swelling. PROCEDURES: Venous duplex imaging was performed in bilateral lower extremities. The following venous structures were evaluated: common femoral vein, profunda vein, proximal portion of the greater saphenous vein, superficial femoral vein, and the popliteal vein. In addition, the posterior tibial and peroneal trunk were evaluated. Serial compression, augmentation maneuvers, and spectral Doppler flow evaluation were performed. FINDINGS: No evidence of DVT seen in any vessel visualized at this time. CONCLUSIONS No evidence of right lower extremity DVT. No evidence of left lower extremity DVT. Bong Avalos MD (Electronically Signed) Final Date: 01 May 2023 11:55 S
--- NOTE | 2023-05-01 06:26 | XACV_ITS ---
Exam Room: [facility] Ht: 168 cm Wt: 103 kg BSA: 2.24 m2 Gender: Female : 1965 Any Known Allergies: No allergy information Exam Priority: Routine Procedure(s): Procedure Description: Diagnostic procedure Procedure Description: Left Heart Catheterization Procedure Description: Right Heart Catheterization Procedure Description: O2 saturation Procedure Description: Coronary Angiography Diagnostic Cath Status: Urgent Diagnostic Findings * Left Main has no significant disease. * Mid Left Anterior Descending: severe 80% stenosis, LINNETTE: 3 flow. * Proximal Circumflex: obstructive 60-70% stenosis, LINNETTE: 3 flow. * Distal RCA has severe 80% stenosis. RPL branch has a severe 90% stenosis. * Proximal Left Anterior Descending: obstructive 60% stenosis, LINNETTE: 3 flow. * Coronary angiography shows right dominance. Conclusions 1. Severe multivessel coronary artery disease. 2. Mildly elevated right and left sided cardiac pressures. 3. There is severe coronary artery disease with three vessel disease. Recommendations * Heart team discussion regarding CABG as patient has severe multivessel CAD. * Continue diuresis. Interventional RX Recommendation: CABG Diagnostic RX Recommendation: CABG Anticoagulation: Heparin Pressures Phase:Rest AO : 117 / 78 ( 92 ) @ 9:04:00 AM 99 / 77 ( 87 ) @ 9:04:00 AM 95 / 73 ( 83 ) @ 9:06:00 AM 97 / 77 ( 86 ) @ 9:09:00 AM 114 / 67 ( 84 ) @ 9:12:00 AM 116 / 67 ( 84 ) @ 9:12:00 AM LV : 113 / 6 / 34 @ 9:12:00 AM 112 / 5 / 32 @ 9:12:00 AM RV : 43 / 4 / 14 @ 8:56:00 AM PA : 38 / 21 ( 26 ) @ 8:55:00 AM RA : a wave = 11 v wave = 9 mean = 10 @ 8:57:00 AM PCW : a wave = 19 v wave = 16 mean = 15 @ 8:55:00 AM O2 Content Phase:Rest PA : O2 Content O2: 66.4 @ 9:04:00 AM Saturations Phase:Rest AO : 98 @ 9:04:00 AM PA : 66 @ 9:04:00 AM Cardiac Output Phase:Rest Mónica : 4 @ 9:28:36 AM Mónica Cardiac Index: 2 @ 9:28:36 AM Flow Phase:Rest Qp : 4 @ 9:28:36 AM Qs : 4 @ 9:28:36 AM Valves Phase:DefaultPhase AV : 0.0 @ 9:28:36 AM 0.0 @ 9:28:36 AM AV Mean Gradient: 0.0 @ 9:28:36 AM 0.0 @ 9:28:36 AM AV Flow: 173 @ 9:28:36 AM Clinical Evaluation EBL: 5mL-10mL Procedural Details Procedure Consent Obtained. Pre-Procedure Time Out. Identified patient by full name and date of as verbalized by the patient/guarantor. Does the consent match the physician's order: Yes. Accurate & Complete Informed Consent: Yes. Inpatient/Outpatient History & Physical on Chart: Yes. If H&P is completed, is and addenduem needed: No; If yes, is the addendum complete: N/A. Visualize and Verify Site with Patient/Guarantor: N/A. Relevant Radiology Images available: Yes. Pre-op teaching completed and patient verbalized understanding. The risks, benefits, and alternatives of sedation and/or procedure were discussed by physician. The patient agrees to continue. Procedure started. [facility] Clinical Fraility Score: 4: Vulnerable. 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 Correct patient, site and procedure confirmed by cath team. PERRLA. Strong, equal hand operational trainer bilaterally. Lungs clear x 5 lobes. IV Site on Arrival: 18 gauge in the right anticubital. IV Site on Arrival: 18 gauge in the left anticubital. IV Fluids: 0.9% NaCl at KVO. 0 mL infused prior to quality lab assoc. right groin was prepped with chloroprep then draped in the usual sterile fashion. right radial was prepped with chloroprep then draped in the usual sterile fashion. right brachial was prepped with chloroprep then draped in the usual sterile fashion. Physician arrived. Baseline sample Acquired. HR: 105 BPM. Vital chart was stopped. A 20 gauge IV was started in the left forearm using aseptic technique. The IV in the left AC was taken out. Physician scrubbed in. Immediate Pre-Procedure Time Out. Correct Patient: Yes; Correct Procedure: Yes; Correct Site: Yes; Correct Patient Position: Yes; Correct Supplies: Yes; Dried Flammable Prep: Yes; Blood Products Available: N/A;. Sheath wire inserted through the right brachial IV catheter. IV catheter removed OTW. Lidocaine 1% infiltrated to the right brachial. Cardwell-Bryson MON catheter inserted. Oximetry samples were obtained. Normal venous range: 60-85%. Normal arterial range: 95-100%. Pressure measurements obtained. Cardwell-Bryson out. Lidocaine 1% infiltrated to the right radial. Arterial access obtained. Respiratory therapy called to molded goods spot picker O2 saturations. A 5 arabic TIG catheter in over wire. Multiple views taken of left coronary artery. Catheter redirected to the RCA. Multiple views taken of right coronary artery. EDP Sample taken: LV 113/6,34; HR: 95 BPM; SpO2: 82%. Pullback taken: LV 112/5,32; AO 114/67(84); Mean: 0mmHg, Peak to Peak: 0mmHg, SEP: 24sec/min; HR: 100 BPM; SpO2: 96%. Catheter removed over the exchange wire. Physician scrubbed out. A TR Band was successful obtaining hemostatsis at the Right Radial artery insertion site. A Manual Compression was successful obtaining hemostatsis at the Right Brachial Vein insertion site. Vital chart was stopped. Post Procedure: Pulses reassessed and unchanged. PERRLA. Strong, equal hand operational trainer bilaterally. No VTE prophylaxis required. Medication's Wasted: Heparin = 6000 units. Medication's Wasted: Nitro = 49.8 mcg. Medication's Wasted: Other = Fentanyl 50mcg. Total IV fluids: 0 mL. Post-op diagnosis: Multi-Vessel Disease. CABG Consult. Complications: None. Estimated blood loss: 5mL-10mL. Responsiveness - Normal response to verbal stimuli; alert and oriented, PERRLA. Airway - Unaffected, no intervention required; spontaneous ventilation. Circulation: W/N/L, pulses unchanged. Nausea/Vomiting: No. Procedure completed. Patient transferred by bed to ICU. Access Site Site: Right Brachial Vein Sheath Size: 6 Fr Hemostasis Method: Manual Compression Hemostasis Success: Successful Site: Right Radial artery Sheath Size: 6 Fr Hemostasis Method: TR Band Hemostasis Success: Successful Procedure Medications Start: 8:40 AM Stop: 8:40 AM Medication: Versed 1 mg and Fentanyl 25 mcg Amount: 1 Route: I.V. Start: 8:51 AM Stop: 8:51 AM Medication: Versed Amount: 1 mg Route: I.V. Start: 9:02 AM Stop: 9:02 AM Medication: Nitrogylcerin Amount: 200 mcg Route: I.A. Start: 9:02 AM Stop: 9:02 AM Medication: Fentanyl Amount: 25 mcg Route: I.V. I, the attending physician, have reviewed and verified all procedure medications. Yes, all medications given per verbal order History/Risk Factors Hypertension: Yes Dyslipidemia: Yes Peripheral Arterial Disease (PAD): No Myocardial Infarction (NV): Yes Obesity: No Renal Disease: No Prior Interventions PCI: Yes CABG: No Valve Surgery: No Date of PCI: 04/25/2016 Report Signatures Finalized by Kelvin Clinton MD on 05/01/2023 03:07 PM
--- NOTE | 2023-05-01 08:37 | W.PM.OPSUD ---
Surgery/Procedure H&P Update DATE OF PROCEDURE: May 01, 2023 DATE H&P PERFORMED: 04/30/23 H&P UPDATE INFORMATION: I have reviewed H&P completed within last 30 days, I have examined patient prior to procedure and No changes to prior documentation PREOP DIAGNOSIS: NSTEMI/LV dysfunction PRIMARY INDICATION FOR PROCEDURE: NSTEMI/ LV dysfunction PLANNED PROCEDURE: Left heart cath with possible percutaneous coronary intervention PATIENT REASSESSED PRIOR TO SEDATION, WITH NO CHANGE NOTED: Yes PHYSICAL EXAM: alert, oriented x 3, clear to auscultation bilaterally and regular rate & rhythm AIRWAY EVAL/ANESTHESIA PLAN: normal airway, ASA III, Local Anesthesia, Risks, benefits & alternatives of sedation and/or procedure discussed and Patient agrees to continue as planned ADDITIONAL INFORMATION: Moderate sedation
--- NOTE | 2023-05-01 08:47 | PC.NURSE ---
0830 aM TAKEN TO VEHICLE SERVICE AGENT. POTASSIUM ORDERS HAVE NOT GIVEN DUE TO THIS.
[2023-05-01 09:18] LABS: Arterial Blood Gas Hematocrit 39.9 % (37-47); Blood Gas Operator Identificat glc; Blood Gas Sample Site Not specified; Blood Gas Sample Type Not specified; Carboxyhemoglobin 1.2 %THgb (0.4-20.1); HGB O2 Sat 65.2 % (95-100); Methemoglobin 0.6 % (0.4-1.5)
[2023-05-01 09:22] LABS: Blood Gas Operator Identificat GLC
[2023-05-01 09:24] LABS: Arterial Blood Gas Hematocrit 40.7 % (37-47); Blood Gas Sample Site NOT SPECIFIED; Blood Gas Sample Type NOT SPECIFIED; Carboxyhemoglobin 1.1 %THgb (0.4-20.1); HGB O2 Sat 96.2 % (95-100); Total Hemoglobin 13.3 g/dL (12-16)
[2023-05-01 09:25] LABS: Methemoglobin 0.6 % (0.4-1.5)
[2023-05-01] MEDS: atorvastatin 40 mg Tablet PO (10:00)
[2023-05-01] MEDS: metoprolol tartrate 25 mg Tablet PO ×2 (10:00→21:12)
[2023-05-01] MEDS: potassium chloride ER 20 mEq Tablet 40 MEQ PO (10:00)
[2023-05-01] MEDS: FUROsemide 10 mg/mL SDV 4mL 40 MG IVP (10:32)
--- NOTE | 2023-05-01 11:01 | P.PN_ITS ---
Subjective 2 Subjective: Patient has severe multivessel CAD. Has severe mid LAD, moderate to severe proximal LAD stenosis, moderate to severe proximal left circumflex artery stenosis, Severe distal RCA and severe PLV stenosis. Denies chest pain. Breathing is better. Vitals/I&O/Wt Last Vital Signs Temp 98.4 F 05/01/23 04:00 Pulse 94 05/01/23 08:00 Resp 16 05/01/23 08:00 BP 114/69 05/01/23 08:00 Pulse Ox 97 05/01/23 08:00 O2 Del Method Nasal Cannula 05/01/23 03:05 O2 Flow Rate 2 05/01/23 03:05 FiO2 65 04/30/23 00:34 04/30/23 05/01/23 05/01/23 22:59 06:59 14:59 Intake Total 380 / 1161.167 60.833 / 1222.000 42.708 / 42.708 Output Total 2000 / 3000 1000 / 4000 Balance -1620 / -1838.833 -939.167 / -2778.000 42.708 / 42.708 Weight last 48 hrs Weight 228 lb 8 oz Weight 228 lb 8 oz Weight 237 lb 9.6 oz Weight 240 lb Physical Exam 2 Narrative: GENERAL: Patient is alert, awake and oriented x3. [] NECK: No jugular vein distension. [] HEENT: No cyanosis. No icterus. No pallor. [] HEART: Regular S1 and S2. No murmur, rub or gallop. [] LUNGS: Clear to auscultate bilaterally. [] CENTRAL NERVOUS SYSTEM: Grossly nonfocal. [] EXTREMITIES: Lower extremities with 1+ edema bilaterally. Urinary Catheter Management: Constantino: Cath Placed During This Visit: yes Reason for Continuing Indwelling Catheter: Accurate Measurement of Urinary Output in Critically Ill Patients Urinary Catheter Date of Insertion: 04/30/23 Urinary Catheter Time of Insertion: 01:18 Data 05/01/23 03:53 05/01/23 03:53 Micro: Microbiology 04/30/23 00:30 Blood Culture - Preliminary Blood NEGATIVE TO DATE 04/30/23 00:20 Blood Culture - Preliminary Blood NEGATIVE TO DATE 04/30/23 12:35 Gram Stain - Final Sputum - Expectorated Sputum 04/30/23 03:55 Legionella Urinary Antigen - Final Urine,Voided Bacterial Antigens - Final A&P Assessment and plan (1) CAD (coronary artery disease): Qualifiers: Coronary Disease-Associated Artery/Lesion type: [place] artery [place] vs. transplanted heart: [place] heart Associated angina: with unspecified form of angina Qualified Code(s): I25.119 - Atherosclerotic heart disease of [place] coronary artery with unspecified angina pectoris (2) Hyperlipidemia: (3) NSTEMI (non-ST elevated myocardial infarction): (4) CHF (congestive heart failure): Qualifiers: Heart failure type: diastolic Heart failure chronicity: chronic Qualified Code(s): I50.32 - Chronic diastolic (congestive) heart failure (5) New onset left bundle branch block (LBBB): (6) Tachycardia: Plan Cardiac catheterization shows severe multivessel CAD. Will recommend CT surgery evaluation for CABG. Heart team discussion with CT surgery today for inpatient vs outpatient evaluation. Continue aspirin. Continue anticoagulation for 48 hours. Thank you for involving us with care of this patient. We will continue to follow. Please call with questions. Attestations 2 Medical Necessity Statement*: Care expected to cross 2 midnights. Coding Level of Care Code Acute Code for [facility] Diagnoses Coronary artery disease involving [place] coronary artery of [place] heart with angina pectoris I25.119 Coronary Disease-Associated Artery/Lesion type: [place] artery [place] vs. transplanted heart: [place] heart Associated angina: with unspecified form of angina Hyperlipidemia E78.5 NSTEMI (non-ST elevated myocardial infarction) I21.4 Chronic diastolic congestive heart failure I50.32 Heart failure type: diastolic Heart failure chronicity: chronic New onset left bundle branch block (LBBB) I44.7 Tachycardia R00.0
--- NOTE | 2023-05-01 11:06 | P.PN_ITS ---
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, discussed the possibility of inpatient versus outpatient need for CABG D based upon her clinical progress and consultation with tertiary level facility Vitals/I&O/Wt Last Vital Signs Temp 98.4 F 05/01/23 04:00 Pulse 94 05/01/23 08:00 Resp 16 05/01/23 08:00 BP 114/69 05/01/23 08:00 Pulse Ox 97 05/01/23 08:00 O2 Del Method Nasal Cannula 05/01/23 03:05 O2 Flow Rate 2 05/01/23 03:05 FiO2 65 04/30/23 00:34 04/30/23 05/01/23 05/01/23 22:59 06:59 14:59 Intake Total 380 / 1161.167 60.833 / 1222.000 42.708 / 42.708 Output Total 2000 / 3000 1000 / 4000 Balance -1620 / -1838.833 -939.167 / -2778.000 42.708 / 42.708 Weight last 48 hrs Weight 103.646 kg Weight 103.646 kg Weight 107.774 kg Weight 108.862 kg Physical Exam 2 Const: COMMON NORMALS: no acute distress and patient oriented x3 Resp: COMMON NORMALS: normal respiratory effort, No retractions, No use of accessory muscles and clear to auscultation bilaterally AUSCULTATION: clear to auscultation bilaterally Cardio: COMMON NORMALS: regular rate, regular rhythm, S1 normal heart sound present and S2 normal heart sound present RATE: regular rate RHYTHM: r egular rhythm HEART SOUNDS: S1 normal heart sound present and S2 normal heart sound present GI: COMMON NORMALS: Normal to inspection, nondistended, normoactive bowel sounds present and non-tender Extremity: COMMON NORMALS: no pedal edema Neuro: COMMON NORMALS: patient oriented x3 Psych: COMMON NORMALS: mental status grossly normal Urinary Catheter Management: Constantino: Cath Placed During This Visit: yes Reason for Continuing Indwelling Catheter: Accurate Measurement of Urinary Output in Critically Ill Patients Urinary Catheter Date of Insertion: 04/30/23 Urinary Catheter Time of Insertion: 01:18 Data 05/01/23 03:53 05/01/23 03:53 Micro: Microbiology 04/30/23 00:30 Blood Culture - Preliminary Blood NEGATIVE TO DATE 04/30/23 00:20 Blood Culture - Preliminary Blood NEGATIVE TO DATE 04/30/23 12:35 Gram Stain - Final Sputum - Expectorated Sputum 04/30/23 03:55 Legionella Urinary Antigen - Final Urine,Voided Bacterial Antigens - Final A&P Assessment and plan (1) Acute respiratory failure with hypoxia: Multifactorial -Associated with coronavirus -Fluid overload, CHF exacerbation, EF 20% with triple-vessel CAD -Atypical pneumonia? Plan -Monitor in ICU closely -Currently on 3 L, can use BiPAP during the day as needed for shortness of breath -Monitor respiratory status closely -Zosyn -Continue IV diuresis -Will wean to prednisone -Follow blood cultures, sputum cultures (2) Coronavirus infection: - As above (3) NSTEMI (non-ST elevated myocardial infarction): Does have underlying coronary disease, previous stent in RCA after STEMI in 2017, but also 60% stenosis of LAD, 50% stenosis of LCx and 60% stenosis of OM1 back in 2017 for which continued on medical therapy. -With new onset left bundle branch block, ventricular tachycardia Plan -Serial EKGs, serial troponins, telemetry monitoring -Cardiac echo, EF 20% -Cardiology consulted, plans on coronary angiography , multivessel CAD, plans on outpatient versus inpatient referral for CABG -Continue aspirin -Continue statin -Continue beta-janine -Continue therapeutic Lovenox (4) New onset left bundle branch block (LBBB): (5) Tachycardia: - Off Cardizem drip -Continue metoprolol (6) Metabolic acidosis: Lactic acidosis likely secondary to acute respiratory failure, tachypnea, increased work of breathing, possible sepsis with leukocytosis, tachycardia, suspected pulmonary source. (7) Elevated d-dimer: Not impressive adjusted for age. Suspect secondary to coronavirus infection. Follow-up D-dimer level. (8) Atypical pneumonia: (9) CHF (congestive heart failure): Qualifiers: Heart failure type: diastolic Heart failure chronicity: chronic Qualified Code(s): I50.32 - Chronic diastolic (congestive) heart failure (10) CAD (coronary artery disease): Qualifiers: Coronary Disease-Associated Artery/Lesion type: [place] artery [place] vs. transplanted heart: [place] heart Associated angina: with unspecified form of angina Qualified Code(s): I25.119 - Atherosclerotic heart disease of [place] coronary artery with unspecified angina pectoris Plan Hyperglycemia with DM2: Blood glucose 433, possibly stress related. Metabolic acidosis, but serum and urine ketones negative. Will start Lantus 10 units daily as she is also going to be on a steroid. Insulin sliding scale, Accu- Cheks. Consistent carbohydrate diet once resumed. Check A1c 8.6 CAD: Continue aspirin, beta-janine, statin. HTN: Monitor BPs, cont metoprolol HLD: cont statin Obesity: follow up w PCP regarding weight loss options. Plan for today status post coronary angiography, discussed with outpatient facility about inpatient versus outpatient CABG, continue antibiotics continue diuresis continue inpatient monitoring continue therapeutic Lovenox, de-escalate to prednisone, spoke to patient, spoke to cardiology spoke to nursing staff Attestations 2 Medical Necessity Statement*: Patient requires 2 midnights requires hospitalization for systolic CHF exacerbation with triple-vessel CAD, atypical pneumonia Diagnoses Acute respiratory failure with hypoxia J96.01 Coronavirus infection B34.2 NSTEMI (non-ST elevated myocardial infarction) I21.4 New onset left bundle branch block (LBBB) I44.7 Tachycardia R00.0 Metabolic acidosis E87.20 Elevated d-dimer R79.89 Atypical pneumonia J18.9 Chronic diastolic congestive heart failure I50.32 Heart failure type: diastolic Heart failure chronicity: chronic Coronary artery disease involving [place] coronary artery of [place] heart with angina pectoris I25.119 Coronary Disease-Associated Artery/Lesion type: [place] artery [place] vs. transplanted heart: [place] heart Associated angina: with unspecified form of angina
[2023-05-01 11:27] LABS: Glucose Point of Care 435 mg/dL (70-110)
--- NOTE | 2023-05-01 12:17 | PC.NURSE ---
cullet washer informed pt and family pt and family updayed on the results of her procedure. pt is needing a cabg. pt decided to be transferred. family and pt got an extensive information from Dr Clinton about pre-procedure,intraprocedure and post procedure and recovery time frame of the CABG.
[2023-05-01] MEDS: insulin lispro 100 unit/1 mL SUBCUT ×3 (12:38→21:13)
--- NOTE | 2023-05-01 13:48 | PC.NURSE ---
report given to CSU pt is going to [facility] 104.
--- NOTE | 2023-05-01 14:50 | PC.NURSE ---
Ushered pt via wheelchair to [facility] room 104 w/all her belongings,-bag,tumbler,clothes, cellphone.
[2023-05-01 17:26] LABS: Glucose Point of Care 395 mg/dL (70-110)
[2023-05-01] MEDS: lidocaine 1% 5 ML in potassium chloride premix 100 ML 26.25 ML IV (17:45)
[2023-05-01] MEDS: insulin glargine 100 units/1 mL 10 UNIT SUBCUT (21:13)
[2023-05-02] VITALS (17 sets, daily range): BP systolic 109–128; BP diastolic 64–79; PULSE 80–104; RESP 12–28; TEMP 36.4–37.1; O2SAT 97–100; BMI 37.3
[2023-05-02 00:53] LABS: Glucose Point of Care 346 mg/dL (70-110)
[2023-05-02] MEDS: ipratropium-albuterol 3 mL Neb INHALATION ×4 (02:01→20:56)
[2023-05-02] MEDS: aspirin 325 mg Tablet PO (04:04)
[2023-05-02] MEDS: enoxaparin 120 mg/0.8 mL Syringe 110 MG SUBCUT ×2 (04:04→16:09)
[2023-05-02] MEDS: pantoprazole 40 mg SDV IVP (04:05)
[2023-05-02 05:14] LABS: Basophils % 0.3 %; Eosinophils % 0.1 %; Hematocrit 40.4 % (36-47); Lymphocytes # 1.7 10^3/uL (0.8-4.8); Lymphocytes % 21.7 %; Mean Corpuscular HGB Conc 32.2 g/dL (30-55); Mean Corpuscular Hemoglobin 28.1 pg (27-33); Mean Corpuscular Volume 87.4 fl (85-98); Mean Platelet Volume 9.4 fL (7.4-10.4); Monocytes # 0.7 10^3/uL (0.2-0.9); Monocytes % 9.1 %; Neutrophils # 5.41 10^3/uL (1.8-7.7); Neutrophils % 68.5 %; Nucleated Red Blood Cells % 0 %; Platelet Count 307 10^3/cmm (157-399); Red Blood Count 4.62 10^6/uL (3.85-5.65); Red Cell Distribution Width 14.4 % (12.1-15.1); White Blood Count 7.89 10^3/uL (3.29-11.43)
[2023-05-02 05:37] LABS: Alanine Aminotransferase 29 U/L (0-33); Albumin Level 3.8 g/dL (3.5-5.2); Alkaline Phosphatase 81 U/L (35-105); Anion Gap 19.6 (5-19); Aspartate Amino Transferase 12 U/L (0-32); Blood Urea Nitrogen 28 mg/dL (6-20); Calcium 9.1 mg/dL (8.5-10.5); Carbon Dioxide 25 mmol/L (22-29); Chloride 100 mmol/L (98-107); Creatinine Clr Calc Pharmacy 69.1094; Globulin 2.8 g/dL (1.3-4.6); Glomerular Filtration Rate 51.2 mL/min (90-130); Glucose 217 mg/dL (65-115); Magnesium 2.4 mg/dL (1.7-2.3); Osmolality Calculated 304 mOsm/kg (285-295); Potassium 3.6 mmol/L (3.5-5.1); Sodium 141 mmol/L (136-145); Total Bilirubin 0.4 mg/dL (0.15-1.2); Total Protein 6.6 g/dL (6.6-8.7)
[2023-05-02 05:38] LABS: C Reactive Protein 6.5 mg/L (0.0-4.9)
[2023-05-02] MEDS: piperacillin-tazobactam 3.375 GM in sodium chloride 0.9% (plus) 50 ML IV (05:58)
[2023-05-02 06:00] LABS: NT Pro B Type Natriuretic Pept 853 pg/mL (0-125)
[2023-05-02 06:22] LABS: Glucose Point of Care 260 mg/dL (70-110)
--- NOTE | 2023-05-02 08:22 | P.PN_ITS ---
Subjective 2 Subjective: Patient is doing well. No chest pain. Vitals/I&O/Wt Last Vital Signs Temp 98.4 F 05/02/23 07:40 Pulse 95 05/02/23 07:40 Resp 24 H 05/02/23 07:40 BP 128/79 05/02/23 07:40 Pulse Ox 100 05/02/23 07:40 O2 Del Method Nasal Cannula 05/02/23 07:40 O2 Flow Rate 2 05/02/23 07:40 FiO2 65 04/30/23 00:34 05/01/23 05/02/23 05/02/23 22:59 06:59 14:59 Intake Total 755 / 1423.000 50 / 1473.000 Output Total 300 / 2050 200 / 2250 Balance 455 / -627.000 -150 / -777.000 Weight last 48 hrs Weight 231 lb 8 oz Physical Exam 2 Narrative: GENERAL: Patient is alert, awake and oriented x3. [] NECK: No jugular vein distension. [] HEENT: No cyanosis. No icterus. No pallor. [] HEART: Regular S1 and S2. No murmur, rub or gallop. [] LUNGS: Clear to auscultate bilaterally. [] CENTRAL NERVOUS SYSTEM: Grossly nonfocal. [] EXTREMITIES: Lower extremities with 1+ edema bilaterally. Urinary Catheter Management: Constantino: Cath Placed During This Visit: yes Reason for Continuing Indwelling Catheter: Other Urinary Catheter Date of Insertion: 04/30/23 Urinary Catheter Time of Insertion: 01:18 Data 05/02/23 04:12 05/02/23 04:12 Micro: Microbiology 04/30/23 12:35 Gram Stain - Final Sputum - Expectorated Sputum Sputum Culture - Preliminary A&P Assessment and plan (1) CAD (coronary artery disease): Qualifiers: Coronary Disease-Associated Artery/Lesion type: [place] artery [place] vs. transplanted heart: [place] heart Associated angina: with unspecified form of angina Qualified Code(s): I25.119 - Atherosclerotic heart disease of [place] coronary artery with unspecified angina pectoris (2) Hyperlipidemia: (3) NSTEMI (non-ST elevated myocardial infarction): (4) CHF (congestive heart failure): Qualifiers: Heart failure type: diastolic Heart failure chronicity: chronic Qualified Code(s): I50.32 - Chronic diastolic (congestive) heart failure (5) New onset left bundle branch block (LBBB): (6) Tachycardia: Plan Patient is stable. Being transferred to [place] for CT surgery workup. Thank you for involving us with care of this patient. Please call with questions. Attestations 2 Medical Necessity Statement*: Care expected to cross 2 midnights. Coding Level of Care Code Acute Code for Gypsyg Fwd Diagnoses Coronary artery disease involving [place] coronary artery of [place] heart with angina pectoris I25.119 Coronary Disease-Associated Artery/Lesion type: [place] artery [place] vs. transplanted heart: [place] heart Associated angina: with unspecified form of angina Hyperlipidemia E78.5 NSTEMI (non-ST elevated myocardial infarction) I21.4 Chronic diastolic congestive heart failure I50.32 Heart failure type: diastolic Heart failure chronicity: chronic New onset left bundle branch block (LBBB) I44.7 Tachycardia R00.0
[2023-05-02] MEDS: predniSONE 20 mg Tablet 40 MG PO (08:43)
[2023-05-02] MEDS: FUROsemide 10 mg/mL SDV 4mL 40 MG IVP (08:43)
[2023-05-02] MEDS: atorvastatin 40 mg Tablet PO (08:43)
[2023-05-02] MEDS: insulin lispro 100 unit/1 mL SUBCUT ×4 (08:44→21:08)
[2023-05-02] MEDS: metoprolol tartrate 25 mg Tablet PO ×2 (08:44→21:09)
[2023-05-02] MEDS: insulin glargine 100 units/1 mL 10 UNIT SUBCUT ×2 (09:17→21:09)
--- NOTE | 2023-05-02 10:58 | P.PN_ITS ---
Subjective 2 Medications: Medication Review Details: Patient was seen this morning, family members at bedside, she is awaiting a bed at [facility] has been accepted by Dr. Bear Finney, planning CABG, given her multivessel CAD no chest pain overnight discussed with blood sugar management, discussed with creatinine 1.1 continues to diurese well, she is negative for liters so far Vitals/I&O/Wt Last Vital Signs Temp 98.4 F 05/02/23 07:40 Pulse 104 H 05/02/23 08:40 Resp 20 H 05/02/23 08:40 BP 128/79 05/02/23 07:40 Pulse Ox 97 05/02/23 08:40 O2 Del Method Nasal Cannula 05/02/23 08:40 O2 Flow Rate 1 05/02/23 08:40 FiO2 65 04/30/23 00:34 05/01/23 05/02/23 05/02/23 22:59 06:59 14:59 Intake Total 755 / 1423.000 50 / 1473.000 290 / 290 Output Total 300 / 2050 200 / 2250 Balance 455 / -627.000 -150 / -777.000 290 / 290 Weight last 48 hrs Weight 105.007 kg Physical Exam 2 Const: COMMON NORMALS: no acute distress and patient oriented x3 Resp: COMMON NORMALS: normal respiratory effort, No retractions, No use of accessory muscles and clear to auscultation bilaterally AUSCULTATION: clear to auscultation bilaterally Cardio: COMMON NORMALS: regular rate, regular rhythm, S1 normal heart sound present and S2 normal heart sound present RATE: regular rate RHYTHM: r egular rhythm HEART SOUNDS: S1 normal heart sound present and S2 normal heart sound present GI: COMMON NORMALS: Normal to inspection, nondistended, normoactive bowel sounds present and non-tender Extremity: COMMON NORMALS: no pedal edema Neuro: COMMON NORMALS: patient oriented x3 Psych: COMMON NORMALS: mental status grossly normal Urinary Catheter Management: Constantino: Cath Placed During This Visit: yes Reason for Continuing Indwelling Catheter: Other Urinary Catheter Date of Insertion: 04/30/23 Urinary Catheter Time of Insertion: 01:18 Data 05/02/23 04:12 05/02/23 04:12 Micro: Microbiology 04/30/23 12:35 Gram Stain - Final Sputum - Expectorated Sputum Sputum Culture - Preliminary A&P Assessment and plan (1) Acute respiratory failure with hypoxia: Multifactorial -Associated with coronavirus -Fluid overload, CHF exacerbation, EF 20% with triple-vessel CAD -Atypical pneumonia? Unlikely, cultures so far unremarkable, remains afebrile Plan -Monitor in ICU closely -Currently on 3 L, can use BiPAP during the day as needed for shortness of breath -Monitor respiratory status closely -Stop Zosyn -Continue IV diuresis -Will wean to prednisone, stopped after 5 days -Follow blood cultures, sputum cultures (2) Coronavirus infection: - As above (3) NSTEMI (non-ST elevated myocardial infarction): Does have underlying coronary disease, previous stent in RCA after STEMI in 2017, but also 60% stenosis of LAD, 50% stenosis of LCx and 60% stenosis of OM1 back in 2017 for which continued on medical therapy. -With new onset left bundle branch block, ventricular tachycardia Plan -Serial EKGs, serial troponins, telemetry monitoring -Cardiac echo, EF 20% -Cardiology consulted, plans on coronary angiography , multivessel CAD, plans inpatient transfer to [facility] for CABG -Continue aspirin -Continue statin -Continue beta-janine -Continue therapeutic Lovenox (4) New onset left bundle branch block (LBBB): (5) Tachycardia: - Off Cardizem drip -Continue metoprolol (6) Metabolic acidosis: Lactic acidosis likely secondary to acute respiratory failure, tachypnea, increased work of breathing, possible sepsis with leukocytosis, tachycardia, suspected pulmonary source. (7) Elevated d-dimer: Not impressive adjusted for age. Suspect secondary to coronavirus infection. Follow-up D-dimer level. (8) Atypical pneumonia: (9) CHF (congestive heart failure): Qualifiers: Heart failure type: diastolic Heart failure chronicity: chronic Qualified Code(s): I50.32 - Chronic diastolic (congestive) heart failure (10) CAD (coronary artery disease): Qualifiers: Coronary Disease-Associated Artery/Lesion type: [place] artery [place] vs. transplanted heart: [place] heart Associated angina: with unspecified form of angina Qualified Code(s): I25.119 - Atherosclerotic heart disease of [place] coronary artery with unspecified angina pectoris Plan Hyperglycemia with DM2: Blood glucose 433, possibly stress related. Metabolic acidosis, but serum and urine ketones negative. Will start Lantus 10 units twice daily as she is also going to be on a steroid. Insulin sliding scale, Accu-Cheks. Consistent carbohydrate diet once resumed. Check A1c 8.6 CAD: Continue aspirin, beta-janine, statin. HTN: Monitor BPs, cont metoprolol HLD: cont statin Obesity: follow up w PCP regarding weight loss options. Plan for today blood sugar control stop Zosyn, de-escalate steroids, plan on transferring to [facility] Attestations 2 Medical Necessity Statement*: Patient requires hospitalization for CABG, requiring transfer to tertiary level center for open heart surgery, continue to [facility], for CHF EF 20% Diagnoses Acute respiratory failure with hypoxia J96.01 Coronavirus infection B34.2 NSTEMI (non-ST elevated myocardial infarction) I21.4 New onset left bundle branch block (LBBB) I44.7 Tachycardia R00.0 Metabolic acidosis E87.20 Elevated d-dimer R79.89 Atypical pneumonia J18.9 Chronic diastolic congestive heart failure I50.32 Heart failure type: diastolic Heart failure chronicity: chronic Coronary artery disease involving [place] coronary artery of [place] heart with angina pectoris I25.119 Coronary Disease-Associated Artery/Lesion type: [place] artery [place] vs. transplanted heart: [place] heart Associated angina: with unspecified form of angina
--- NOTE | 2023-05-02 11:01 | P.TS_ITS ---
Transfer Summary Providers Date of Admission: 04/30/23 02:00 Date of Discharge/Transfer: 05/02/23 Attending Provider at Admission: Alexandro Machuca Attending Provider at Transfer: Lokesh Nice MD Primary Care Provider: Romina Walton MD Transfer Plans: Anticipated date of transfer: 05/02/23 . Diagnoses at Discharge Discharge Diagnosis (1) Acute respiratory failure with hypoxia: Status: Acute (2) Coronavirus infection: Status: Acute (3) NSTEMI (non-ST elevated myocardial infarction): Status: Acute (4) New onset left bundle branch block (LBBB): Status: Acute (5) Tachycardia: Status: Acute (6) Metabolic acidosis: Status: Acute (7) Elevated d-dimer: Status: Acute (8) Atypical pneumonia: Status: Acute (9) CHF (congestive heart failure): Status: Acute Qualifiers: Heart failure type: diastolic Heart failure chronicity: chronic Qualified Code(s): I50.32 - Chronic diastolic (congestive) heart failure (10) CAD (coronary artery disease): Status: Acute Qualifiers: Coronary Disease-Associated Artery/Lesion type: [place] artery [place] vs. transplanted heart: [place] heart Associated angina: with unspecified form of angina Qualified Code(s): I25.119 - Atherosclerotic heart disease of [place] coronary artery with unspecified angina pectoris Reason for Visit Reason for Visit RESP. DISTRESS Hospital Course Hospital Course 57-year-old lady with history of CAD, stent in RCA after STEMI in 2017, also noted disease in LAD with 60% mid stenosis as well as 50% LCx and 60% proximal OM1 stenosis, these were not intervened upon at that time and she continued on medical therapy, ejection fraction had improved on follow-up from 45% to 55% on echocardiogram back in 2021. Other medical history including HTN, HLD, DM2. She came into ER via EMS due to shortness of breath/dyspnea, initially thought to be possibly V. tach received amiodarone in EMS, received a breathing treatment. She noticed getting a cold last weekend but thought she was getting better until getting worse through the day yesterday. In ER noted tachycardia 170s, tachypnea, increased work of breathing, was started on BiPAP support, received 80 mg IV push Lasix, Ativan, started on Cardizem drip. On EKG noted a left bundle branch block, uncertain regular tachycardia. Chest x-ray with diffuse interstitial infiltrates possible pulmonary edema. Noted with leukocytosis 17.04, question of whether there may be superimposed right lung infiltrate as well, was given empiric antibiotics with Zosyn and vancomycin. Blood cultures been obtained. Respiratory viral panel is pending. With metabolic acidosis, anion gap 20.9, lactic acid of 6.7. ABG 7.18/49.8/96. Glucose 433. Urine and serum ketones were negative. Baseline troponin 15. NT- proBNP 645. New transaminitis AST 79, ALT 52, continue alk phos elevation 113. DDimer with mild abnormality 0.63. Repeat EKG with sinus tachycardia 108, new LBBB. Was discussed with cardiology in ER and consult requested. Respiratory viral panel returns positive for Coronavirus. Patient was admitted to [facility] for acute respiratory failure with hypoxia secondary to fluid overload CHF exacerbation, systolic CHF, was diuresed over 5 L, EF 20%, will require further diuresis, likely Lasix 40 mg daily Patient was positive for coronavirus, 229E, initially managed with steroids, will be de-escalated burst dose of prednisone for concerns for atypical pneumonia cultures have been unremarkable, she remains afebrile, inflammatory markers remain unremarkable, likely chest x-ray findings are for fluid overload, she was initially managed with antibiotics, antibiotics have been discontinued Due to NSTEMI, with prior history of stenting, she underwent cardiac echo which showed EF of 20%, underwent coronary angiography which showed multivessel CAD, patient and family have elected for her to be transferred to tertiary level center for CABG, she was managed on aspirin, statin, beta-janine therapeutic Lovenox, will be transferred to [facility] for CABG Physical Exam Const: COMMON NORMALS: no acute distress and patient oriented x3 Resp: COMMON NORMALS: normal respiratory effort, No retractions, No use of accessory muscles and clear to auscultation bilaterally AUSCULTATION: clear to auscultation bilaterally Cardio: COMMON NORMALS: regular rate, regular rhythm, S1 normal heart sound present and S2 normal heart sound present RATE: regular rate RHYTHM: regular rhythm HEART SOUNDS: S1 normal heart sound present and S2 normal heart sound present GI: COMMON NORMALS: Normal to inspection, nondistended, normoactive bowel sounds present, Soft to palpation and non-tender PALPATION: Yes Soft to palpation Extremity: COMMON NORMALS: no pedal edema Neuro: COMMON NORMALS: patient oriented x3 Psych: COMMON NORMALS: mental status grossly normal Urinary Catheter Management: Constantino: Cath Placed During This Visit: yes Reason for Continuing Indwelling Catheter: Other Urinary Catheter Date of Insertion: 04/30/23 Urinary Catheter Time of Insertion: 01:18 TS Data Studies Completed and Pending Pending at discharge Category Date Time Status Blood Culture Stat Lab 04/30/23 00:30 Results C Reactive Protein AM LABS Lab 05/03/23 04:00 Ordered Complete Blood Count w/Auto AM LABS Lab 05/03/23 04:00 Ordered Comprehensive Metabolic Panel AM LABS Lab 05/03/23 04:00 Ordered MRSA [Methicillin Resistant S.aureu] Routine Lab 05/01/23 20:18 Received Magnesium AM LABS Lab 05/03/23 04:00 Ordered NT Pro B Type Natriuretic Pept QAM Lab 05/03/23 06:00 Ordered Sputum Culture and Gram Stain Routine Lab 04/30/23 12:35 Results Completed Studies During Hospitalization Category Date Time Status CALL OUT CLERK request for service Routine Exams 05/01/23 06:26 Completed XR chest 1V portable [id number] Stat Exams 04/30/23 00:07 [place] [id number] Routine Ultrasound 05/01/23 06:00 Completed CV. echo complete* [id number] Routine Ultrasound 04/30/23 03:44 Completed Laboratory Last Values WBC 7.89 10^3/uL (3.29-11.43) 05/02/23 04:12 RBC 4.62 10^6/uL (3.85-5.65) 05/02/23 04:12 Hgb 13.00 g/dL (11.27-16.99) 05/02/23 04:12 Hct 40.4 % (36-47) 05/02/23 04:12 MCV 87.4 fl (85-98) 05/02/23 04:12 MCH 28.1 pg (27-33) 05/02/23 04:12 MCHC 32.2 g/dL (30-55) 05/02/23 04:12 RDW 14.4 % (12.1-15.1) 05/02/23 04:12 Plt Count 307 10^3/cmm (157-399) 05/02/23 04:12 MPV 9.4 fL (7.4-10.4) 05/02/23 04:12 Neut % (Auto) 68.5 % 05/02/23 04:12 Lymph % (Auto) 21.7 % 05/02/23 04:12 [place] % (Auto) 9.1 % 05/02/23 04:12 Eos % (Auto) 0.1 % 05/02/23 04:12 Baso % (Auto) 0.3 % 05/02/23 04:12 Neut # (Auto) 5.41 10^3/uL (1.8-7.7) 05/02/23 04:12 Lymph # (Auto) 1.7 10^3/uL (0.8-4.8) 05/02/23 04:12 Roosevelt # (Auto) 0.7 10^3/uL (0.2-0.9) 05/02/23 04:12 Eos # (Auto) 0.0 10^3/uL (0.0-0.8) 05/02/23 04:12 Baso # (Auto) 0.0 10^3/uL (0.0-0.1) 05/02/23 04:12 Nucleated RBC % (auto) 0 % 05/02/23 04:12 Nucleated RBCs # 0.0 /100WBC 05/02/23 04:12 D-Dimer 1.97 ug/mLFEU (0-0.59) H 04/30/23 05:26 Specimen Type Not specified 05/01/23 09:05 Specimen Type Not specified 05/01/23 09:05 Sample Site Not specified 05/01/23 09:05 Sample Site Not specified 05/01/23 09:05 ABG pH 7.45 (7.35-7.45) 05/01/23 04:40 ABG pCO2 36.9 mmHg (35-45) 05/01/23 04:40 ABG pO2 122.0 mmHg (80.0-100.0) H 05/01/23 04:40 ABG PO2/FiO2 Ratio 0 04/30/23 00:08 ABG HCO3 25.8 mmol/L (22-26) 05/01/23 04:40 ABG Base Excess 2.0 mmol/L (-2.0-2.0) 05/01/23 04:40 Ayaz Test N/a 05/01/23 09:05 Ayaz Test Not Reportable 05/01/23 09:05 A-a O2 Gradient Not Reportable 05/01/23 09:05 A-a O2 Gradient Not Reportable 05/01/23 09:05 Hematocrit 39.9 % (37-47) 05/01/23 09:05 Hematocrit 40.7 % (37-47) 05/01/23 09:05 Hgb O2 Saturation 65.2 % (95-100) L 05/01/23 09:05 Hgb O2 Saturation 96.2 % (95-100) 05/01/23 09:05 Carboxyhemoglobin 1.1 %THgb (0.4-20.1) 05/01/23 09:05 Carboxyhemoglobin 1.2 %THgb (0.4-20.1) 05/01/23 09:05 Methemoglobin 0.6 % (0.4-1.5) 05/01/23 09:05 Methemoglobin 0.6 % (0.4-1.5) 05/01/23 09:05 Total Hemoglobin 13.0 g/dL (12-16) 05/01/23 09:05 Total Hemoglobin 13.3 g/dL (12-16) 05/01/23 09:05 O2 Delivery Device Not Reportable 05/01/23 09:05 O2 Delivery Device Not Reportable 05/01/23 09:05 O2 Liters/Min 2.0 % 05/01/23 04:40 FiO2 55.0 % 04/30/23 00:08 Grants Director ID Glc 05/01/23 09:05 Grants Director ID glc 05/01/23 09:05 Sodium 141 mmol/L (136-145) 05/02/23 04:12 Potassium 3.6 mmol/L (3.5-5.1) 05/02/23 04:12 Chloride 100 mmol/L (98-107) 05/02/23 04:12 Carbon Dioxide 25 mmol/L (22-29) 05/02/23 04:12 Anion Gap 19.6 (5-19) H 05/02/23 04:12 BUN 28 mg/dL (6-20) H 05/02/23 04:12 Creatinine 1.1 mg/dL (0.5-0.9) H 05/02/23 04:12 GFR Calculation 51.2 mL/min (90-130) L 05/02/23 04:12 Glucose 217 mg/dL (65-115) H 05/02/23 04:12 POC Glucose 260 mg/dL (70-110) H 05/02/23 06:13 Estimat Average Glucose 200 04/30/23 00:13 Hemoglobin A1c 8.6 % (4.0-6.0) H 04/30/23 00:13 Calculated Osmolality 304 mOsm/kg (285-295) H 05/02/23 04:12 Lactic Acid 6.7 mmol/L (0.5-2.2) H* 04/30/23 00:13 Lactic Acid (Sepsis) 2.2 mmol/L (0.5-2.2) 04/30/23 05:26 Lactate 1.8 mmol/L (0.5-2.2) 05/01/23 03:53 Calcium 9.1 mg/dL (8.5-10.5) 05/02/23 04:12 Magnesium 2.4 mg/dL (1.7-2.3) H 05/02/23 04:12 Total Bilirubin 0.4 mg/dL (0.15-1.2) 05/02/23 04:12 AST 12 U/L (0-32) 05/02/23 04:12 ALT 29 U/L (0-33) 05/02/23 04:12 Alkaline Phosphatase 81 U/L (35-105) 05/02/23 04:12 Troponin T Baseline 15 ng/L (0-10) H 04/30/23 00:13 Troponin T 120 Minute 59.72 ng/L (0-10) H 04/30/23 01:56 Delta Troponin T 44.72 ABS# (0-10) H* 04/30/23 01:56 Troponin T Hi Sens 6Hr 129.1 ng/L (0-10) H 04/30/23 05:26 Troponin T Hi Sens 6Hr Delta 114.1 ng/L (0-12) H* 04/30/23 05:26 C-Reactive Protein 6.5 mg/L (0.0-4.9) H 05/02/23 04:12 NT-Pro-B Natriuret Pep 853 pg/mL (0-125) H 05/02/23 04:12 Total Protein 6.6 g/dL (6.6-8.7) 05/02/23 04:12 Albumin 3.8 g/dL (3.5-5.2) 05/02/23 04:12 Globulin 2.8 g/dL (1.3-4.6) 05/02/23 04:12 Procalcitonin 0.05 ng/mL (0-0.5) 04/30/23 00:13 TSH 3.53 uIU/mL (0.27-4.20) 04/30/23 00:13 Urine Color Colorless (Yellow) 04/30/23 01:05 Urine Appearance Clear (CLEAR) 04/30/23 01:05 Urine pH 6 (5-7) 04/30/23 01:05 Ur Specific [place] 1.005 (1.005-1.030) 04/30/23 01:05 Urine Protein Neg (Negative) 04/30/23 01:05 Urine Glucose (UA) 4+ (Normal) H 04/30/23 01:05 Urine Ketones Negative (Negative) 04/30/23 01:05 Urine Blood Neg (Negative) 04/30/23 01:05 Urine Nitrate Negative (Negative) 04/30/23 01:05 Urine Bilirubin Neg (Negative) 04/30/23 01:05 Urine Urobilinogen Norm mg/dL (Negative) 04/30/23 01:05 Ur Leukocyte Esterase Negative (Negative) 04/30/23 01:05 Serum Ketones Negative (Negative) 04/30/23 00:23 Adenovirus (PCR) Not detected (NOT DETECT) 04/30/23 00:33 C. pneumoniae DNA (PCR) Not detected (NOT DETECT) 04/30/23 00:33 Coronavirus 229E (PCR) Detected (NOT DETECT) A 04/30/23 00:33 Human Metapneumovir PCR Not detected (NOT DETECT) 04/30/23 00:33 Influenza A (H1) PCR Not detected (NOT DETECT) 04/30/23 00:33 Influ A (H1/09) PCR Not detected (NOT DETECT) 04/30/23 00:33 Influenza A (H3) PCR Not detected (NOT DETECT) 04/30/23 00:33 Influenza Type A (PCR) Not detected (NOT DETECT) 04/30/23 00:33 Influenza Type B (PCR) Not detected (NOT DETECT) 04/30/23 00:33 M. pneumoniae (PCR) Not detected (NOT DETECT) 04/30/23 00:33 Parainfluenza 1 (PCR) Not detected (NOT DETECT) 04/30/23 00:33 Parainfluenza 2 (PCR) Not detected (NOT DETECT) 04/30/23 00:33 Parainfluenza 3 (PCR) Not detected (NOT DETECT) 04/30/23 00:33 Parainfluenza 4 (PCR) Not detected (NOT DETECT) 04/30/23 00:33 RSV Type A (PCR) Not detected (NOT DETECT) 04/30/23 00:33 RSV Type B (PCR) Not detected (NOT DETECT) 04/30/23 00:33 Entero/Rhino (PCR) Not detected (NOT DETECT) 04/30/23 00:33 SARS-CoV-2 (PCR) Not detected (NOT DETECT) 04/30/23 00:33 Radiology Impressions Chest X-Ray 04/30/23 00:07 IMPRESSION: Moderate interstitial coarsening is nonspecific. Differential diagnosis includes chronic lung change, pulmonary edema, and atypical infection. Recent Clincial Data Last Vital Signs Temp 98.4 F 05/02/23 07:40 Pulse 104 H 05/02/23 08:40 Resp 20 H 05/02/23 08:40 BP 128/79 05/02/23 07:40 Pulse Ox 97 05/02/23 08:40 O2 Del Method Nasal Cannula 05/02/23 08:40 O2 Flow Rate 1 05/02/23 08:40 FiO2 65 04/30/23 00:34 Vital Signs Temp Pulse Resp BP Pulse Ox O2 Del Method O2 Flow Rate 05/02/23 08:40 104 H 20 H 97 Nasal Cannula 1 05/02/23 08:34 80 20 H 99 Nasal Cannula 2 05/02/23 07:40 98.4 F 95 24 H 128/79 100 Nasal Cannula 2 05/02/23 06:00 84 05/02/23 04:15 97.7 F 91 14 112/64 97 Nasal Cannula 2 05/02/23 02:07 90 05/02/23 02:01 86 17 99 Nasal Cannula 2 05/02/23 00:40 97.5 F L 85 26 H 118/71 98 Nasal Cannula 2 Intake & Output/Weight 04/30/23 05/01/23 05/02/23 05/03/23 06:59 06:59 06:59 06:59 Intake Total 88.541 / 88.541 1222.000 / 1170.920 2129.000 / 1473.000 290 / 290 Output Total 1000 / 1000 4000 / 4000 2250 / 2250 Balance -911.459 / -911.459 -2778.000 / -2778.000 -777.000 / -777.000 290 / 290 Weight 103.646 kg 105.007 kg Vitals Last Vital Signs Temp 98.4 F 05/02/23 07:40 Pulse 104 H 05/02/23 08:40 Resp 20 H 05/02/23 08:40 BP 128/79 05/02/23 07:40 Pulse Ox 97 05/02/23 08:40 O2 Del Method Nasal Cannula 05/02/23 08:40 O2 Flow Rate 1 05/02/23 08:40 FiO2 65 04/30/23 00:34 TS Medications Medications Acetaminophen (Acetaminophen 325 Mg Tablet) 650 mg PO Q6H PRN PRN Reason: Mild/Mod Pain Or Temp >/= 101 Albuterol/Ipratropium (Ipratropium-Albuterol 3 Ml Neb) 3 ml INHALATION Q6H.RESP [facility] Last Admin: 05/02/23 08:34 Dose: 3 ml Albuterol/Ipratropium (Ipratropium-Albuterol 3 Ml Neb) 3 ml INHALATION Q6H PRN PRN Reason: SHORTNESS OF BREATH Aspirin (Aspirin 325 Mg Tablet) 325 mg PO DAILY@05 [facility] Last Admin: 05/02/23 04:04 Dose: 325 mg Atorvastatin Calcium (Atorvastatin 40 Mg Tablet) 40 mg PO DAILY [facility] Last Admin: 05/02/23 08:43 Dose: 40 mg Enoxaparin Sodium (Enoxaparin 120 Mg/0.8 Ml Syringe) 110 mg 1 mg/kg (110 mg) SUBCUT Q12H [facility] Last Admin: 05/02/23 04:04 Dose: 110 mg Furosemide (Furosemide 10 Mg/Ml Sdv 4ml) 40 mg IVP Q24H [facility] Last Admin: 05/02/23 08:43 Dose: 40 mg Dextrose (D5w) 500 mls @ 0 mls/hr IV ONCE PRN; Protocol PRN Reason: Adult Acute Hypoglycemia Prot Dextrose (D10w) 125 mls @ 750 mls/hr IV PRN PRN; Protocol PRN Reason: Adult Acute Hypoglycemia Nursing Protocol Dextrose (D10w) 250 mls @ 1,000 mls/hr IV PRN PRN; Protocol PRN Reason: Adult Acute Hypoglycemia Nursing Protocol Insulin Glargine (Insulin Glargine 100 Units/1 Ml) 10 unit SUBCUT Q12H [facility] Last Admin: 05/02/23 09:17 Dose: 10 unit Insulin Human Lispro (Insulin Lispro 100 Unit/1 Ml) 0 unit SUBCUT WM&BEDTIME KEISHA; Protocol Last Admin: 05/02/23 08:44 Dose: 10 unit Metoprolol Tartrate (Metoprolol Tartrate 25 Mg Tablet) 25 mg PO BID@0900,2100 [facility] Last Admin: 05/02/23 08:44 Dose: 25 mg Ondansetron HCl (Ondansetron 2 Mg/Ml Sdv 2 Ml) 4 mg IVP Q8H PRN PRN Reason: vomiting, or N/V if npo Pantoprazole Sodium (Pantoprazole 40 Mg Sdv) 40 mg IVP Q24H [facility] Last Admin: 05/02/23 04:05 Dose: 40 mg Prednisone (Prednisone 20 Mg Tablet) 40 mg PO DAILY [facility] Last Admin: 05/02/23 08:43 Dose: 40 mg Discontinued Medications Dexamethasone (Dexamethasone 10 Mg/Ml Inj) 6 mg IVP Q24H [facility] Last Admin: 05/01/23 03:01 Dose: 6 mg Diltiazem HCl (Diltiazem 5 Mg/Ml Sdv 5 Ml) Confirm Administered Dose 25 mg .ROUTE .STK-MED ONE Stop: 04/30/23 00:16 Last Admin: 04/30/23 00:21 Dose: 25 mg Enoxaparin Sodium (Enoxaparin 100 Mg/Ml Syringe) 110 mg 1 mg/kg (110 mg) SUBCUT Q12H [facility] Last Admin: 05/02/23 04:10 Dose: Not Given Fentanyl (Fentanyl 50 Mcg/Ml Inj 2ml) Confirm Administered Dose 100 mcg .ROUTE .STK-MED ONE Stop: 05/01/23 07:53 Furosemide (Furosemide 10 Mg/Ml Sdv 10ml) 80 mg IVP NOW ONE Stop: 04/30/23 00:07 Last Admin: 04/30/23 00:16 Dose: 80 mg Heparin Sodium (Porcine) (Heparin 5,000 Unit/Ml Inj 1 Ml) Confirm Administered Dose 10,[address] ONE Stop: 05/01/23 07:53 Diltiazem HCl 100 mg/ Sodium (Chloride) 100 mls @ 0 mls/hr IV .Q0M [facility]; Protocol Last Titration: 04/30/23 14:58 Dose: Infused Sodium Chloride (Sodium Chloride 0.9% (100 Ml)) Confirm Administered Dose 100 mls @ as directed .ROUTE .[facility] ONE Stop: 04/30/23 00:16 Last Infusion: 04/30/23 20:42 Dose: Infused Piperacillin Sod/Tazobactam (Sod 4.5 gm/ Sodium Chloride) 50 mls @ 100 mls/hr IV ONCE ONE; Protocol Stop: 04/30/23 01:43 Last Infusion: 04/30/23 07:00 Dose: Infused Vancomycin/PEG/NADA/Lysine/Water (Vancocin) 1,500 mg in 300 mls @ 200 mls/hr IV ONCE ONE; Protocol Stop: 04/30/23 02:43 Last Infusion: 04/30/23 07:01 Dose: Infused Remdesivir 200 mg/ Sodium (Chloride) 100 mls @ 100 mls/hr IV ONCE ONE Stop: 04/30/23 04:04 Last Admin: 04/30/23 14:58 Dose: Not Given Remdesivir 100 mg/ Sodium (Chloride) 100 mls @ 100 mls/hr IV Q24H [facility] Stop: 05/04/23 06:59 Piperacillin Sod/Tazobactam (Sod 3.375 gm/ Sodium Chloride) 50 mls @ 12.5 mls/hr IV Q8H [facility]; Protocol Last Infusion: 05/02/23 10:28 Dose: Infused Lidocaine HCl (Xylocaine) Confirm Administered Dose 20 mls @ as directed .ROUTE .[facility] ONE Stop: 05/01/23 07:53 Lidocaine HCl 5 ml/ Potassium (Chloride) 105 mls @ 26.25 mls/hr IV ONCE ONE Stop: 05/01/23 12:21 Last Infusion: 05/01/23 21:48 Dose: Infused Sodium Chloride (Sodium Chloride 0.9%) Confirm Administered Dose 1,000 mls @ as directed .ROUTE .[facility] ONE Stop: 05/01/23 08:30 Lidocaine HCl 5 ml/ Potassium (Chloride) 105 mls @ 26.25 mls/hr IV ONCE ONE Stop: 05/01/23 21:29 Last Admin: 05/01/23 18:34 Dose: Not Given Insulin Glargine (Insulin Glargine 100 Units/1 Ml) 10 unit SUBCUT BEDTIME KEISHA Last Admin: 05/01/23 21:13 Dose: 10 unit Insulin Human Lispro (Insulin Lispro 100 Unit/1 Ml) 12 unit SUBCUT NOW ONE Stop: 04/30/23 04:08 Last Admin: 04/30/23 05:20 Dose: 12 unit Levofloxacin (Levofloxacin 750 Mg Tablet) 750 mg PO DAILY@0600 [facility]; Protocol Last Admin: 04/30/23 06:23 Dose: 750 mg Lorazepam (Lorazepam 2 Mg/Ml Inj 10 Ml Mdv) 1 mg IV ONCE ONE Stop: 04/30/23 00:11 Last Admin: 04/30/23 00:17 Dose: 1 mg Midazolam HCl (Midazolam 1 Mg/Ml Inj 2 Ml) Confirm Administered Dose 2 mg .ROUTE .STK-MED ONE Stop: 05/01/23 07:53 Nitroglycerin (Nitroglycerin 5 Mg/Ml Sdv 10 Ml) Confirm Administered Dose 50 mg .ROUTE .STK-MED ONE Stop: 05/01/23 07:52 Ondansetron HCl (Ondansetron 2 Mg/Ml Sdv 2 Ml) 4 mg IVP ONCE ONE Stop: 04/30/23 00:17 Last Admin: 04/30/23 00:21 Dose: 4 mg Potassium Chloride (Potassium Chloride Er 20 Meq Tablet) 40 meq PO ONCE ONE Stop: 05/01/23 06:02 Last Admin: 05/01/23 09:52 Dose: Not Given Potassium Chloride (Potassium Chloride Er 20 Meq Tablet) 40 meq PO ONCE ONE Stop: 05/01/23 09:46 Last Admin: 05/01/23 10:00 Dose: 40 meq Allergies No Known Allergies Allergy (Verified 04/30/23 09:41) Home Medications aspirin 325 mg tablet 325 mg PO DAILY@05 02/04/20 [History Confirmed 04/30/23] glipizide 5 mg tablet, extended release 24 hr 5 mg PO BID@02/04/20 [History Confirmed 04/30/23] metformin 750 mg tablet,extended release 24 hr 750 mg PO BID 02/04/20 [History Confirmed 04/30/23] simvastatin 80 mg tablet 80 mg PO DAILY #90 tabs 03/01/21 [Rx Confirmed 04/30/23] naproxen sodium 220 mg capsule (Aleve) 220 - 440 mg PO Q12H PRN Pain 04/30/23 [History Confirmed 04/30/23] Discharge Plan Discharge Patient Disposition: Home Condition: Critical Prescriptions: No Action simvastatin 80 mg tablet 80 mg PO DAILY Qty: 90 3RF glipizide 5 mg tablet extended release 24hr 5 mg PO BID@05,18 metformin 750 mg tablet extended release 24 hr 750 mg PO BID aspirin 325 mg tablet 325 mg PO DAILY@05 Hold Instructions: Resume on 02/11/20. Aleve 220 mg Capsule 220 - 440 mg PO Q12H PRN (Reason: Pain) Patient Instructions: Opioid Safety Transfer Attestations Time Spent in Transfer Care: greater than 30 min Quality Metrics Clinical Quality Measures [ Acute Myocardial Infaction { Clinical Trial Participant: No; Contraindication to aspirin: None; Aspirin prescribed; Contraindication to statin: None; Statin prescribed; Contraindication to PCI: Intervention not indicated;}] Coding Level of Care Code Acute Code for [facility] Fwd Diagnoses Acute respiratory failure with hypoxia J96.01 Coronavirus infection B34.2 NSTEMI (non-ST elevated myocardial infarction) I21.4 New onset left bundle branch block (LBBB) I44.7 Tachycardia R00.0 Metabolic acidosis E87.20 Elevated d-dimer R79.89 Atypical pneumonia J18.9 Chronic diastolic congestive heart failure I50.32 Heart failure type: diastolic Heart failure chronicity: chronic Coronary artery disease involving [place] coronary artery of [place] heart with angina pectoris I25.119 Coronary Disease-Associated Artery/Lesion type: [place] artery [place] vs. transplanted heart: [place] heart Associated angina: with unspecified form of angina
[2023-05-02 11:42] LABS: Glucose Point of Care 323 mg/dL (70-110)
--- NOTE | 2023-05-02 15:02 | PC.NURSE ---
Gokul from [facility] called with a bed for this patient. Room 344 bed 1 at [facility] in [place], [place]. Report is called to Nena Escoto RN at [phone].
[2023-05-02 16:31] LABS: Glucose Point of Care 322 mg/dL (70-110)
[2023-05-02 20:24] LABS: Glucose Point of Care 295 mg/dL (70-110)
--- NOTE | 2023-05-02 22:51 | PC.NURSE ---
[facility] arrived to transfer patient at 2230. Patient ambulated to their stretcher. Patient belongings given to staff.
[2023-05-03 14:58] LABS: Methicillin-Resist S.aureu PCR NOT DETECTED (NOT DETECTED)
== END 2023-05-02 22:30 | disposition home or self-care (01) | DRG 189 ==
LOC: ER 00:23 → ICU 02:12 → CSU 05-01 14:23
PROVIDERS: Internal Medicine; Admitting Provider Internal Medicine; Emergency Provider Emergency Medicine; PCP Family Medicine; Visit Provider Family Medicine
DX: J96.01 Acute respiratory failure with hypoxia (principal); I50.23 Acute on chronic systolic (congestive) heart failure; I21.4 Non-ST elevation (NSTEMI) myocardial infarction; E87.20 Acidosis, unspecified; I11.0 Hypertensive heart disease with heart failure; E78.5 Hyperlipidemia, unspecified; Z79.82 Long term (current) use of aspirin; E11.65 Type 2 diabetes mellitus with hyperglycemia; Z79.84 Long term (current) use of oral hypoglycemic drugs; I25.10 Atherosclerotic heart disease of native coronary artery without angina pectoris; Z95.5 Presence of coronary angioplasty implant and graft; R00.0 Tachycardia, unspecified; I44.7 Left bundle-branch block, unspecified; R74.01 Elevation of levels of liver transaminase levels; I25.2 Old myocardial infarction; E66.9 Obesity, unspecified; Z68.37 Body mass index [BMI] 37.0-37.9, adult; R79.1 Abnormal coagulation profile; B34.2 Coronavirus infection, unspecified
CPT/HCPCS: 36415; 36416; 36600; 51702; 71045; 80053; 81003; 82009; 82803; 82805; 82810; 82962; 83036; 83605; 83735; 83880; 84145; 84443; 84484; 85025; 85378; 86140; 86403; 87040; 87070; 87205; 87449; 87486; 87581; 87633; 87641; 93005; 93306; 93460; 93970; 94640; 94660; 96365; 96366; 96367; 96372; 96375; 96376; 99152; 99153; 99291; C1751; C1769; C1887; C1894; C9113; J1100; J1644; J1650; J1815; J1940; J2060; J2250; J2405; J2543; J3010; J3370; J3480; J3490; J7030; J7512; Q9967

== ENCOUNTER 2023-05-12 08:01 | Outpatient (CLI) | payer BC, SELFPAY ==
[2023-05-12 08:52] LABS: Anion Gap 18.5 (5-19); Blood Urea Nitrogen 24 mg/dL (6-20); Carbon Dioxide 21 mmol/L (22-29); Chloride 104 mmol/L (98-107); Glomerular Filtration Rate 73.9 mL/min (90-130); Glucose 143 mg/dL (65-115); NT Pro B Type Natriuretic Pept 258 pg/mL (0-125); Osmolality Calculated 295 mOsm/kg (285-295); Potassium 4.5 mmol/L (3.5-5.1); Sodium 139 mmol/L (136-145)
== END 2023-05-12 08:02 | disposition home or self-care (01) ==
LOC: LAB 08:02
PROVIDERS: PCP Family Medicine; Visit Provider Internal Medicine
DX: E78.5 Hyperlipidemia, unspecified (principal); R00.0 Tachycardia, unspecified
CPT/HCPCS: 36415; 80048; 83880

== ENCOUNTER 2023-05-29 10:43 | Outpatient (CLI) | payer BC, SELFPAY ==
--- NOTE | 2023-05-29 11:00 | USCV_ITS ---
Kimberly Aldridge Age: 57 Gender: F : 1965 Exam Date: 05/29/2023 11:05 Ordering Phys: Kelvin Clinton M.D ([email or web address]) Technologist: THIAGO [place]am [place] [facility] [place] Indication: CHF, CAD BP: 128 / 79 HR: 195 Rhythm: Sinus Technical Quality: Good MEASUREMENTS (Male / Female) Normal Values 2D ECHO LV Diastolic Diameter PLAX 5.7 cm 4.2 - 5.9 / 3.9 - 5.3 cm IVS Diastolic Thickness 1.1 cm 0.6 - 1.0 / 0.6 - 0.9 cm IVS Systolic Thickness 1.1 cm LVPW Diastolic Thickness 0.9 cm 0.6 - 1.0 / 0.6 - 0.9 cm LVPW Systolic Thickness 0.6 cm LVOT Diameter 2.0 cm LV Ejection Fraction 2D Teich 16.7 % LV Ejection Fraction MOD 2C 40.6 % LV Ejection Fraction 2C AL 41.5 % LA Diameter 3.4 cm RA Systolic Volume 4C AL 24.7 ml RA Systolic Volume 4C MOD 25.0 ml Aorta at Sinotubular Diameter 2.8 cm IVC Diameter 1.8 cm M-MODE LA Ao Ratio MM 1.2 AV Cusp Separation MM 1.4 cm DOPPLER AV Peak Velocity 148.0 cm/s LVOT Peak Velocity 85.0 cm/s AV Area Cont Eq vti 1.9 cm squared AV Area Cont Eq pk 1.9 cm squared MV Peak Velocity 95.0 cm/s MV Area PHT 5.0 cm squared Mitral E to A Ratio 1.0 TV Peak Velocity 95.7 cm/s TR Peak Velocity 111.0 cm/s TR Peak Gradient 4.9 mmHg TR Mean Velocity 74.0 cm/s TR Mean Gradient 2.5 mmHg TR Velocity Time Integral 21.8 cm PV Peak Velocity 90.0 cm/s RV Ejection Time 0.3 s FINDINGS Left Ventricle Technically limited quality echocardiogram because of poor ultrasonic windows. Left ventricle is mildly dilated. LV systolic function is severely reduced with EF of 25 to 30%. Severe global hypokinesis noted. Grade 2 diastolic dysfunction. Right Ventricle Normal in size and function Right Atrium Normal in size Left Atrium Normal in size Mitral Valve Structurally normal mitral valve. Mild mitral regurgitation. Aortic Valve Structurally normal aortic valve. No significant stenosis or regurgitation. Tricuspid Valve Trace tricuspid regurgitation. Insufficient TR jet to calculate RVSP. Pulmonic Valve Trace pulmonic regurgitation. Pericardium Normal Aorta Normal in size IVC Appears to be normal CONCLUSIONS Technically limited quality echocardiogram because of poor ultrasonic windows. Left ventricle is mildly dilated. LV systolic function is severely reduced with EF of 25 to 30%. Grade 2 diastolic dysfunction. Mild mitral regurgitation. Trace tricuspid regurgitation Trace pulmonic regurgitation. Compared to prior echocardiogram from 04/30/2023, no significant changes are seen. Kelvin Clinton MD (Electronically Signed) Final Date: 30 May 2023 09:24 S
== END 2023-05-29 10:44 | disposition home or self-care (01) ==
LOC: RAD 10:44
PROVIDERS: PCP Family Medicine; Visit Provider Internal Medicine
DX: I34.0 Nonrheumatic mitral (valve) insufficiency (principal); R00.0 Tachycardia, unspecified; E78.5 Hyperlipidemia, unspecified
CPT/HCPCS: 93306

== ENCOUNTER 2023-12-08 06:22 | Outpatient (CLI) | payer BC, SELFPAY ==
--- NOTE | 2023-12-08 06:30 | USCV_ITS ---
Kimberly Aldridge Age: 58 Gender: F : 1965 Exam Date: 12/08/2023 06:50 Ordering Phys: Kelvin Clinton M.D ([email or web address]) Technologist: Saturnino Pastrana Exam Location: [facility] – [place] Indication: sob BP: 94 / 60 HR: 78 Rhythm: Sinus Technical Quality: Adequate MEASUREMENTS (Male / Female) Normal Values 2D ECHO LV Diastolic Diameter PLAX 5.7 cm 4.2 - 5.9 / 3.9 - 5.3 cm IVS Diastolic Thickness 1.1 cm 0.6 - 1.0 / 0.6 - 0.9 cm IVS Systolic Thickness 1.2 cm LVPW Diastolic Thickness 1.4 cm 0.6 - 1.0 / 0.6 - 0.9 cm LVPW Systolic Thickness 1.7 cm LVOT Diameter 2.0 cm LV Ejection Fraction 2D Teich 10.1 % LV Ejection Fraction MOD 4C 25.9 % LV Ejection Fraction MOD 2C 17.8 % LV Ejection Fraction 2C AL 16.4 % LA Diameter 4.6 cm RA Systolic Volume 4C AL 29.4 ml RA Systolic Volume 4C MOD 30.3 ml LA Sys Volume AL 89.3 cm cubed LA Sys Volume Index AL 42.9 cm cubed/m squared Aorta at Sinotubular Diameter 2.2 cm IVC Diameter 1.9 cm M-MODE LA Ao Ratio MM 1.9 AV Cusp Separation MM 1.4 cm DOPPLER AV Peak Velocity 134.0 cm/s LVOT Peak Velocity 76.0 cm/s AV Area Cont Eq vti 2.0 cm squared AV Area Cont Eq pk 1.8 cm squared MV Peak Velocity 116.0 cm/s MV Area PHT 6.9 cm squared Mitral E to A Ratio 2.0 TV Peak Velocity 314.0 cm/s TR Peak Velocity 322.0 cm/s TR Peak Gradient 41.5 mmHg TR Mean Velocity 250.0 cm/s TR Mean Gradient 27.8 mmHg TR Velocity Time Integral 112.2 cm PV Peak Velocity 73.7 cm/s RV Ejection Time 0.3 s FINDINGS Left Ventricle Severely increased left ventricular cavity size. Severely decreased left ventricular systolic function. Left ventricular ejection fraction is estimated at 25 %. Global left ventricular hypokinesis. Grade IV/IV diastolic dysfunction (irreversible restrictive filling pattern), severely elevated filling pressures. Right Ventricle The right ventricle is normal in size and function. Right Atrium The right atrium is normal in size. Left Atrium Severely increased left atrial size. Mitral Valve Mildly thickened mitral valve. Mild mitral annular calcification. Mild mitral valve regurgitation. Aortic Valve Moderate aortic valve calcification. Mild aortic valve stenosis, mean gradient 4 mmHg, GEORGE 2 cm squared. Trace aortic valve regurgitation. Tricuspid Valve No tricuspid valve stenosis. Structurally normal tricuspid valve. Mild tricuspid valve regurgitation. Pulmonic Valve Structurally normal pulmonic valve without significant stenosis. There is no pulmonic regurgitation. Pericardium Normal pericardium without effusion. Aorta Normal ascending aorta dimension. IVC The inferior vena cava appears normal. CONCLUSIONS Severely increased left ventricular cavity size. Severely decreased left ventricular systolic function. Left ventricular ejection fraction is estimated at 25 %. Global left ventricular hypokinesis. Grade IV/IV diastolic dysfunction (irreversible restrictive filling pattern), severely elevated filling pressures. Moderate aortic valve calcification. Mild aortic valve stenosis, mean gradient 4 mmHg, GEORGE 2 cm squared. Trace aortic valve regurgitation. Mildly thickened mitral valve. Mild mitral annular calcification. Mild mitral valve regurgitation. There is no pericardial effusion. Right atrial pressure is around 15-20 mm of mercury. Yvette Monroy MD (Electronically Signed) Final Date: 08 December 2023 11:50 S
== END 2023-12-08 06:23 | disposition home or self-care (01) ==
LOC: RAD 06:23
PROVIDERS: PCP Family Medicine; Visit Provider Internal Medicine
DX: I50.32 Chronic diastolic (congestive) heart failure (principal); I51.7 Cardiomegaly; I50.20 Unspecified systolic (congestive) heart failure; I70.0 Atherosclerosis of aorta
CPT/HCPCS: 93306

== ENCOUNTER → 2024-09-17 13:33 | Outpatient (BNVA) | payer OTHER, SELFPAY | PROVIDERS: PCP Nurse Practitioner; Visit Provider Nurse Practitioner | DX: E11.9 Type 2 diabetes mellitus without complications (principal) | CPT/HCPCS: 80053; 83036 ==

== ENCOUNTER 2024-09-19 08:49 | Outpatient (CLI) | payer OTHER, SELFPAY ==
--- NOTE | 2024-09-19 08:57 | XR_ITS ---
WS: [email or web address] Left shoulder, 2 views, 09/19/2024 Clinical Data: M25.511 - Pain in left shoulder Comparison: None. Findings: No fractures or dislocations are seen. The AC joint is normal. The adjacent left clavicle, left scapula and ribs are normal. The soft tissues are unremarkable. There are surgical plates and screws from a median sternotomy. XR/XR shoulder LT min 2V* [id number] Impression: Negative left shoulder.
--- NOTE | 2024-09-19 08:57 | XR_ITS ---
WS: [email or web address] Lumbar spine, 3 views, 09/19/2024 Clinical Data: M54.50 - Low back pain, unspecified Comparison: None. Findings: No compression fractures or subluxation is seen. There is degenerative disc narrowing at L5-S1. There is anterior spurring of all the lumbar vertebral bodies. The transverse processes and SI joints are normal. There are surgical clips and wires overlying the anterior upper abdomen and lower thorax. There are surgical clips overlying the right sacrum. XR/XR lumbar spine 2-3V* [id number] Impression: 1. Degenerative disc narrowing L5-S1. 2. Minimal osteoarthritis L1-L5.
--- NOTE | 2024-09-19 08:57 | XR_ITS ---
WS: [email or web address] Right shoulder, 2 views, 09/19/2024 Clinical Data: M25.511 - Pain in right shoulder Comparison: None. Findings: No fractures or dislocations are seen. The AC joint is normal. The adjacent right clavicle, right scapula and ribs are normal. The soft tissues are unremarkable. There are surgical devices with plates and screws from a median sternotomy. XR/XR shoulder RT min 2V* [id number] Impression: Negative right shoulder.
== END 2024-09-19 08:50 | disposition home or self-care (01) ==
LOC: RAD 08:51
PROVIDERS: PCP Nurse Practitioner; Visit Provider Nurse Practitioner
DX: M25.511 Pain in right shoulder (principal); M25.512 Pain in left shoulder; M54.50 Low back pain, unspecified
CPT/HCPCS: 72100; 73030

== ENCOUNTER → 2024-10-15 13:33 | Outpatient (BNVA) | payer OTHER, SELFPAY | PROVIDERS: PCP Nurse Practitioner; Visit Provider Orthopaedic Surgery | DX: M51.360 Other intervertebral disc degeneration, lumbar region with discogenic back pain only (principal); M47.896 Other spondylosis, lumbar region; G89.29 Other chronic pain | CPT/HCPCS: 72110 ==

== ENCOUNTER 2024-11-04 16:33 | Observation (INO) | payer OTHER, SELFPAY ==
[2024-11-04 16:35] VITALS: BP 139/82; PULSE 120; TEMP 36.4; O2SAT 99
--- NOTE | 2024-11-04 16:36 | XRR_ITS ---
PROCEDURE INFORMATION: Exam: XR Chest Exam date and time: 11/04/2024 4:54 PM Age: 59 years old Clinical indication: Pain; Chest pressure; Prior surgery; Surgery date: 6+ months; Surgery type: Cabg, coronary stents; Additional info: Chest pain TECHNIQUE: Imaging protocol: Radiologic exam of the chest. Views: 1 view. COMPARISON: CR XR chest 1V portable [id number] 04/30/2023 12:30 AM FINDINGS: Lungs: Mild tenting left diaphragm left lung base. No infiltrate/edema or consolidation. Minimal linear scar lateral mid left lung. Pleural spaces: No pleural effusion or pneumothorax. Heart/Mediastinum: Upper limits of normal cardiac size with single-view exam. Bones/joints: Postsurgical changes of sternotomy/CABG. Visualized osseous structures show no acute abnormality. XR/XR chest 1V portable [id number] IMPRESSION: 1. Postsurgical changes of sternotomy/CABG. Upper limits of normal cardiac size with single-view exam. 2. Mild tenting left diaphragm left lung base. Minimal linear scar lateral mid left lung. 3. No acute findings.
--- OUTSIDE RECORDS SUMMARY | 2024-11-04 16:37 | XMS_ITS | Clinical Summary ---
Author Organization [facility] Address [address] 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
--- OUTSIDE RECORDS SUMMARY | 2024-11-04 16:37 | XMS_ITS | Encounter Summary ---
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
--- NOTE | 2024-11-04 16:39 | ECG_ITS ---
[facility] Date: 2024-11-04 Pat Name: Kimberly Aldridge Department: Room: Gender: Female Trading Assistant: : 1965 Requested By: Toshia Tatum Order Number: [id number] Alegria MD: Carlos Segundo M.D. Measurements Intervals [place] Rate: 116 P: 130 AR: 171 QRS: 155 QRSD: 160 T: 24 QT: 344 QTc: 480 Interpretive Statements SINUS TACHYCARDIA RIGHT AXIS DEVIATION [QRS AXIS > 100] INTRAVENTRICULAR CONDUCTION DELAY [130+ ms QRS DURATION] ST ELEVATION IN THE INFERIOR LEADS, CONSIDER INJURY Compared to ECG 04/30/2023 05:48:02 Right-axis deviation and ST elevation are now present Electronically Signed On 11-06-2024 20:48:41 CDT by Carlos Segundo M.D. [email or web address]
--- NOTE | 2024-11-04 16:41 | W.ED.CHESTPA ---
HPI - Chest Pain General: Chief Complaint: Chest Pain Stated Complaint: chest burning, shoulder pain Time Seen by Provider: 11/04/24 16:35 History of Present Illness: 59-year-old female with history of coronary artery disease status post quadruple bypass, CHF, hypertension, type 2 diabetes who presents emergency room with chest pain. Says just a couple of hours before presentation she developed a burning in her chest that radiated into her back. She says this was like when she had to have her CABG in the past. It is improved slightly but is still present. She slightly tachycardic on presentation but this resolved spontaneously. No lower extremity swelling. No altered mental status. No nausea or vomiting. Related Data Home Medications ?Medication ?Instructions ?Recorded ?Confirmed glipizide 5 mg tablet, extended 5 mg PO BID@05,18 02/04/20 10/17/24 release 24 hr metformin 750 mg tablet,extended 750 mg PO BID 02/04/20 10/17/24 release 24 hr acetaminophen 500 mg tablet 1,000 mg PO Q6H PRN 09/04/23 10/17/24 (Tylenol Extra Strength) empagliflozin 10 mg tablet 10 mg PO DAILY 09/04/23 10/17/24 (Jardiance) carvedilol 6.25 mg tablet 3.125 mg PO BID 09/17/24 10/17/24 ezetimibe 10 mg tablet 10 mg PO DAILY 09/17/24 10/17/24 sacubitril 49 mg-valsartan 51 mg 1 tab PO BID 09/17/24 10/17/24 tablet (Entresto) Previous Rx's ?Medication ?Instructions ?Recorded aspirin 81 mg tablet,delayed 81 mg PO DAILY #90 tabs 09/04/23 release atorvastatin 80 mg tablet 80 mg PO DAILY #90 tabs 09/04/23 clopidogrel 75 mg tablet (Plavix) 75 mg PO DAILY #90 tabs 09/04/23 spironolactone 25 mg tablet 25 mg PO DAILY #90 tabs 09/04/23 baclofen 5 mg tablet 5 mg PO BID PRN muscle spasm #60 10/17/24 tabs Allergies Allergy/AdvReac Type Severity Reaction Status Date / Time No Known Allergies Allergy Verified 11/04/24 16:43 Review of Systems Narrative: Constitutional symptoms: Negative except as documented in HPI. Skin symptoms: Negative except as documented in HPI. Eye symptoms: Negative except as documented in HPI. ENMT symptoms: Negative except as documented in HPI. Respiratory symptoms: Negative except as documented in HPI. Cardiovascular symptoms: Negative except as documented in HPI. Gastrointestinal symptoms: Negative except as documented in HPI. Genitourinary symptoms: Negative except as documented in HPI. Musculoskeletal symptoms: Negative except as documented in HPI. Neurologic symptoms: Negative except as documented in HPI. Psychiatric symptoms: Negative except as documented in HPI. Endocrine symptoms: Negative except as documented in HPI. PFSH ED PFSH: Medical History (Updated 11/04/24 @ 19:55 by Toshia Lee MD) Hyperlipidemia CAD (coronary artery disease) CHF (congestive heart failure) HTN (hypertension) History of AK (myocardial infarction) Type 2 diabetes mellitus Surgical History Status post colonoscopy S/P laparoscopic appendectomy (02/04/20) H/O heart artery stent Family History Mother Heart disease Father Heart disease Social History Smoking and tobacco/nicotine status: never used tobacco/nicotine Alcohol intake: never Substance/Drug Use: never Marital status: Number of children: 3 Current occupational status: employed Physical Exam Narrative: EXAM NARRATIVE: General: Alert, no acute distress. Skin: Warm, dry. Head: Normocephalic, atraumatic. Neck: Supple, trachea midline. Eye: Extraocular movements are intact. Ears, nose, mouth and throat: mucosa moist. Cardiovascular: Regular, Normal peripheral perfusion. Respiratory: Lungs are clear to auscultation, respirations are non-labored, breath sounds are equal, Symmetrical chest wall expansion. Gastrointestinal: Soft, Nontender, Non distended Musculoskeletal: Normal ROM, no deformity. Neurological: Alert and oriented, No focal neurological deficit observed. Psychiatric: Cooperative, appropriate mood & affect. Course Vital Signs: Vital signs: Vital Signs Temperature 97.6 F 11/04/24 16:35 Pulse Rate 86 11/04/24 18:45 Blood Pressure 111/79 11/04/24 18:45 Pulse Oximetry 99 11/04/24 18:45 Oxygen Delivery Me thod Room Air 11/04/24 18:45 MDM - Chest Pain Medical Decision Making Differential diagnosis for patient with chest pain includes but is not limited to and based on the above HPI, review of systems and physical exam: Pneumonia. unstable angina. angina. Acute coronary syndrome / AK. Pulmonary embolism. Costochondritis / musculoskeletal. Pleurisy. Pericarditis. Esophageal spasm. Pancreatis. Cholecystitis. Orders placed to evaluate differential diagnosis based on the above differential, HPI and physical exam EKG: Time 1639. Rate 116. Sinus tachycardia, No ST-T changes, no ectopy, normal CT & QRS intervals, This was reviewed and interpreted by myself the ER physician at 1642. Repeat EKG: Time 1816. Rate 93. Normal sinus rhythm, No ST-T changes, no ectopy, normal CT & QRS intervals, This was reviewed and interpreted by myself the ER physician at 1820. Rate has decreased from 1 16-93 in comparison to EKG done previously today in the emergency room. Lab Review: Laboratory results were reviewed and interpreted by myself the emergency room physician. No leukocytosis. No anemia. No renal failure. Glucose is mildly elevated at 178. Patient is positive for COVID. She said she actually had symptoms almost 3 weeks ago and they got worse about 4 days then towards the end of September. She has not been sick for over a week. She also tells me that when she had COVID the last time a couple of years ago she ended up in congestive heart failure afterwards. Second troponin has a delta of 20. This point I have given heparin protocol and Plavix along with some aspirin. Chest x-ray: Sternotomy wires. Borderline cardiac enlargement. No acute process. No infiltrate. No pneumothorax. This was reviewed and interpreted by myself the emergency room physician. I also reviewed the radiology report. I reviewed the patient's medical record. Reexamination: Patient remained stable. No increased work of breathing. No altered mental status. No focal motor deficits. Consultation: I spoke with Dr. Villagran who agrees to admission. Assessment and plan: Non-ST elevation myocardial infarction Testing COVID-positive. I believe this is residual and she has recovered. - Heparin protocol, 300 p.o. Plavix. 324 chewable aspirin. ? I discussed the patient with the hospitalist on-call who is admitting the patient. - Discussed findings and plan with patient. Answered any questions. - All laboratory values were reviewed and interpreted personally by myself, the ER physician - All imaging was reviewed and interpreted personally by myself, the ER physician. - Evaluation and treatment of this problem were appropriate in the emergency setting Lab Data 11/04/24 17:31 11/04/24 17:31 Radiology Impressions Chest X-Ray 11/04/24 16:36 IMPRESSION: 1. Postsurgical changes of sternotomy/CABG. Upper limits of normal cardiac size with single-view exam. 2. Mild tenting left diaphragm left lung base. Minimal linear scar lateral mid left lung. 3. No acute findings. Laboratory Results WBC 5.93 10^3/uL (3.29-11.43) 11/04/24 17:31 RBC 5.46 10^6/uL (3.85-5.65) 11/04/24 17:31 Hgb 15.50 g/dL (11.27-16.99) 11/04/24 17:31 Hct 46.8 % (36-47) 11/04/24 17:31 MCV 85.7 fl (85-98) 11/04/24 17:31 MCH 28.4 pg (27-33) 11/04/24 17:31 MCHC 33.1 g/dL (30-55) 11/04/24 17:31 RDW 13.6 % (12.1-15.1) 11/04/24 17:31 Plt Count 332 10^3/cmm (157-399) 11/04/24 17:31 MPV 9.6 fL (7.4-10.4) 11/04/24 17:31 Neut % (Auto) 56.0 % 11/04/24 17:31 Lymph % (Auto) 33.9 % 11/04/24 17:31 Iron % (Auto) 6.7 % 11/04/24 17:31 Eos % (Auto) 2.5 % 11/04/24 17:31 Baso % (Auto) 0.7 % 11/04/24 17:31 Neut # (Auto) 3.32 10^3/uL (1.8-7.7) 11/04/24 17:31 Lymph # (Auto) 2.0 10^3/uL (0.8-4.8) 11/04/24 17:31 Iron # (Auto) 0.4 10^3/uL (0.2-0.9) 11/04/24 17:31 Eos # (Auto) 0.2 10^3/uL (0.0-0.8) 11/04/24 17:31 Baso # (Auto) 0.0 10^3/uL (0.0-0.1) 11/04/24 17:31 Nucleated RBC % (auto) 0 % 11/04/24 17:31 Nucleated RBCs # 0.0 /100WBC 11/04/24 17:31 Sodium 137 mmol/L (136-145) 11/04/24 17:31 Potassium 4.0 mmol/L (3.5-5.1) 11/04/24 17:31 Chloride 105 mmol/L (98-107) 11/04/24 17:31 Carbon Dioxide 17 mmol/L (22-29) L 11/04/24 17:31 Anion Gap 19.0 (5-19) 11/04/24 17:31 BUN 17 mg/dL (6-20) 11/04/24 17:31 Creatinine 0.8 mg/dL (0.5-0.9) 11/04/24 17:31 GFR Calculation 73.4 mL/min (90-130) L 11/04/24 17:31 Glucose 178 mg/dL (65-115) H 11/04/24 17:31 Calculated Osmolality 290 mOsm/kg (285-295) 11/04/24 17:31 Lactic Acid 1.2 mmol/L (0.5-2.2) 11/04/24 18:53 Calcium 9.9 mg/dL (8.5-10.5) 11/04/24 17:31 Total Bilirubin 0.6 mg/dL (0.15-1.2) 11/04/24 17:31 AST 13 U/L (0-32) 11/04/24 17:31 ALT 12 U/L (0-33) 11/04/24 17:31 Alkaline Phosphatase 71 U/L (35-105) 11/04/24 17:31 Troponin T Baseline 14 ng/L (0-10) H 11/04/24 17:31 Troponin T 120 Minute 35.27 ng/L (0-10) H 11/04/24 18:53 Delta Troponin T 21.27 ABS# (0-10) H* 11/04/24 18:53 NT-Pro-B Natriuret Pep 272 pg/mL (0-125) H 11/04/24 17:31 Total Protein 7.2 g/dL (6.6-8.7) 11/04/24 17:31 Albumin 4.4 g/dL (3.5-5.2) 11/04/24 17:31 Globulin 2.8 g/dL (1.3-4.6) 11/04/24 17:31 Influenza A (PCR) Negative (Negative) 11/04/24 17:31 Influenza Type B (PCR) Negative (Negative) 11/04/24 17:31 RSV (PCR) Negative (Negative) 11/04/24 17:31 SARS-CoV-2 (PCR) Positive (Negative) A 11/04/24 17:31 All radiology interpretation(s) finalized by discharge Discharge Plan Discharge Patient Disposition: Admitted As Inpatient Admit Provider: Rozina Villagran Clinical Impression: Non-ST elevated myocardial infarction Condition: Stable Coding Level of Care Code ED Cashier Greeter for Abdirahman Alejandre
[2024-11-04 17:30] VITALS: BP 133/82; PULSE 98; O2SAT 100
[2024-11-04 17:56] LABS: Hematocrit 46.8 % (36-47); Hemoglobin 15.50 g/dL (11.27-16.99); Mean Corpuscular HGB Conc 33.1 g/dL (30-55); Mean Corpuscular Hemoglobin 28.4 pg (27-33); Mean Corpuscular Volume 85.7 fl (85-98); Nucleated Red Blood Cells % 0 %; Platelet Count 332 10^3/cmm (157-399); Red Blood Count 5.46 10^6/uL (3.85-5.65); White Blood Count 5.93 10^3/uL (3.29-11.43)
[2024-11-04 18:00] VITALS: BP 123/77; PULSE 89; O2SAT 98
[2024-11-04 18:06] LABS: Troponin(5th) Baseline 14 ng/L (0-10)
--- NOTE | 2024-11-04 18:16 | ECG_ITS ---
[facility] [facility] Test Date: 2024-11-04 Pat Name: Kimberly Aldridge Department: Room: Gender: Female Social Services Technician: : 1965 Requested By: Toshia Tatum Order Number: [id number] Airam MD: Carlos Segundo M.D. Measurements Intervals [place] Rate: 93 P: 63 UT: 168 QRS: 232 QRSD: 154 T: -1 QT: 371 QTc: 462 Interpretive Statements SINUS RHYTHM INTRAVENTRICULAR CONDUCTION DELAY [130+ ms QRS DURATION] Compared to ECG 11/04/2024 16:39:32 ST ELEVATION IN THE INFERIOR LEADS DECREASED Electronically Signed On 11-06-2024 23:11:25 CDT by Carlos Segundo M.D. [email or web address]
[2024-11-04 18:27] LABS: Alanine Aminotransferase 12 U/L (0-33); Albumin Level 4.4 g/dL (3.5-5.2); Alkaline Phosphatase 71 U/L (35-105); Anion Gap 19.0 (5-19); Aspartate Amino Transferase 13 U/L (0-32); Blood Urea Nitrogen 17 mg/dL (6-20); Calcium 9.9 mg/dL (8.5-10.5); Carbon Dioxide 17 mmol/L (22-29); Chloride 105 mmol/L (98-107); Creatinine Clr Calc Pharmacy 86.9882; Globulin 2.8 g/dL (1.3-4.6); Glucose 178 mg/dL (65-115); NT Pro B Type Natriuretic Pept 272 pg/mL (0-125); Osmolality Calculated 290 mOsm/kg (285-295); Potassium 4.0 mmol/L (3.5-5.1); Sodium 137 mmol/L (136-145); Total Protein 7.2 g/dL (6.6-8.7)
[2024-11-04 18:37] LABS: Respiratory Syncytial Virus Ce NEGATIVE (Negative)
[2024-11-04 18:45] VITALS: BP 111/79; PULSE 86; O2SAT 99
[2024-11-04 18:57] LABS: SARS-CoV-2 PCR Positive (Negative)
[2024-11-04 19:24] LABS: Troponin 5 2HR 35.27 ng/L (0-10)
[2024-11-04 19:25] LABS: Lactic Sepsis W/Reflex 1.2 mmol/L (0.5-2.2); Troponin 5 2HR Delta 21.27 ABS# (0-10)
[2024-11-04] MEDS: heparin 5,000 unit/mL INJ 1 mL IVP (20:30)
[2024-11-04] MEDS: heparin drip 25,000 UNIT/500 ML PREMIX 26 UNIT IV (20:30)
[2024-11-04 20:35] VITALS: BP 135/90; PULSE 88; O2SAT 98
--- NOTE | 2024-11-04 20:46 | PM.HP ---
Providers/Chief Complaint Admitting Physician: Rozina Villagran MD--- patient seen and evaluated before 12 midnight Primary Care Provider: JUANIAT Rivera Chief Complaint: chest burning, shoulder pain History of Present Illness Kimberly Aldridge is a 59 year old female with medical history significant for ischemic cardiomyopathy status post ST elevation [place] in 2016 with an ejection fraction of 17%. In July 2023 patient had another myocardial infarction and had to undergo quadruple bypass. Patient had undergone medical treatment following this and in March 2024 patient was noted to have an improvement of EF in 2017 from 17% to 45% this year March. Patient today had come into the emergency room to be evaluated because she had been having unstable angina. Patient troponin has been increasing with an increased delta significant for NSTEMI. I had loaded patient with Plavix 300 mg x 1 along with patient initiation of heparin drip. I have also communicated and consulted with cardiology Dr. Clinton who will be seeing the patient in the morning. I have made the patient n.p.o. just in case if patient were to go to cardiac catheterization. Echocardiogram has been ordered Patient describes the current chest pain as being between the shoulder and radiating to the fingertips with numbness and pain to the wrist. At my evaluation patient was chest pain-free. She also related to me that the pain had been coming and going for this reason that what led me to go ahead and loaded the patient with Plavix 300 mg 1 tablet x 1 and to continue with a daily 75 mg of Plavix. Patient is on heparin drip cardiology agreed to this plan. Review of Systems Narrative: System review open 10 organ reviewed we are significant for cardiovascular disease with acute coronary syndrome. Medications/Allergies Home Medications ?Medication ?Instructions ?Recorded ?Confirmed ?Last Taken ?Type glipizide 5 mg tablet, extended 5 mg PO BID@05,18 02/04/20 10/17/24 02/04/20 05:00 History release 24 hr metformin 750 mg tablet,extended 750 mg PO BID 02/04/20 10/17/24 Unknown History release 24 hr acetaminophen 500 mg tablet 1,000 mg PO Q6H PRN 09/04/23 10/17/24 Unknown History (Tylenol Extra Strength) aspirin 81 mg tablet,delayed 81 mg PO DAILY #90 tabs 09/04/23 10/17/24 Unknown Rx release atorvastatin 80 mg tablet 80 mg PO DAILY #90 tabs 09/04/23 10/17/24 Unknown Rx clopidogrel 75 mg tablet (Plavix) 75 mg PO DAILY #90 tabs 09/04/23 10/17/24 Unknown Rx empagliflozin 10 mg tablet 10 mg PO DAILY 09/04/23 10/17/24 Unknown History (Jardiance) spironolactone 25 mg tablet 25 mg PO DAILY #90 tabs 09/04/23 10/17/24 Unknown Rx carvedilol 6.25 mg tablet 3.125 mg PO BID 09/17/24 10/17/24 Unknown History ezetimibe 10 mg tablet 10 mg PO DAILY 09/17/24 10/17/24 Unknown History sacubitril 49 mg-valsartan 51 mg 1 tab PO BID 09/17/24 10/17/24 Unknown History tablet (Entresto) baclofen 5 mg tablet 5 mg PO BID PRN muscle spasm #60 10/17/24 10/17/24 Unknown Rx tabs Allergies Allergy/AdvReac Type Severity Reaction Status Date / Time No Known Allergies Allergy Verified 11/04/24 16:43 PFSH Acute PFSH: Medical History Hyperlipidemia CAD (coronary artery disease) CHF (congestive heart failure) HTN (hypertension) History of [place] (myocardial infarction) Type 2 diabetes mellitus Surgical History Status post colonoscopy S/P laparoscopic appendectomy (02/04/20) H/O heart artery stent Family History Mother Heart disease Father Heart disease Social History Smoking and tobacco/nicotine status: never used tobacco/nicotine Alcohol intake: never Substance/Drug Use: never Marital status: Number of children: 3 Current occupational status: employed Vitals/I&O/Wt Last Vital Signs Temp 97.6 F 11/04/24 16:35 Pulse 88 11/04/24 20:35 BP 135/90 11/04/24 20:35 Pulse Ox 98 11/04/24 20:35 O2 Del Method Room Air 11/04/24 18:45 Weight last 48 hrs Weight 92.986 kg Physical Exam Narrative: Generally patient is in no apparent distress chest pain-free sitting up in the ED bed and conversant with me as well as questions. Patient however is very apprehensive. Patient case have been discussed with Dr. Harris the steam heating installer who will be seeing her tomorrow morning HEENT normocephalic atraumatic neck neck is supple cardiovascular heart rate is regular lungs are pretty much clear abdomen soft nontender nondistended unremarkable extremities are intact no edema has good pulses neurology has no focality lab studies lab studies were significant for rising troponin with elevated delta. Patient is with NSTEMI Data 11/04/24 17:31 11/04/24 17:31 A&P Assessment and plan 1. Non-ST elevated myocardial infarction: 2. Tachycardia: 3. CAD (coronary artery disease): 4. Hyperlipidemia: 5. Type 2 diabetes mellitus: 6. CHF (congestive heart failure): Plan: NSTEMI - Admit to stepdown unit under observation - Keep n.p.o. after 12 midnight - Cardiology to see the patient in the morning and decide what to do. Is patient going to be going to cardiac catheterization vessels medical management. The patient is status post quadruple bypass July 2023 - Patient on a cardiac monitored bed - Heparin drip initiated with a loading dose of Plavix 300 mg x 1 and then to continue with 75 mg of Plavix daily - Echocardiogram ordered please follow-up and also follow-up cardiology recommendations Tacky arrhythmia - Continue home medications such as carvedilol Coronary artery disease - Continue all heart medication continue to treat accordingly - Continue beta-janine, statins antiplatelets. Diabetes type 2 - In-house avoid oral hypoglycemic agent - Continue AC and at bedtime once off n.p.o. for insulin sliding scale. - Obtain hemoglobin A1c Hyperlipidemia - Continue NSAIDs History of heart failure - Patient is not in any overt heart failure at this time. - Continue supportive medication such as spironolactone, follow through with other home medication keep this heart friendly, continue patient on sacubitril 49mg/valsartan 51 mg tablet 1 tablet twice daily PDMP PDMP Reviewed: Not Reviewed Attestations Medical Necessity Statement*: Patient with NSTEMI and with recent quadruple bypass management with chest pain essentially unstable angina meets criteria to at least be evaluated for care patient is observation at this time in the stepdown unit Coding Level of Care Code 90581 Diagnoses Non-ST elevated myocardial infarction I21.4 Tachycardia R00.0 CAD (coronary artery disease) I25.10 Hyperlipidemia E78.5 Type 2 diabetes mellitus E11.9 CHF (congestive heart failure) I50.9 Time Spent (min) 60
[2024-11-04 22:00] VITALS: BP 148/73; PULSE 82; RESP 18; O2SAT 97
[2024-11-04 23:35] LABS: Troponin 5 6HR 115.6 ng/L (0-10); Troponin 5 6HR Delta 101.6 ng/L (0-12)
[2024-11-05] VITALS (64 sets, daily range): BP systolic 85–137; BP diastolic 46–96; PULSE 56–107; RESP 10–29; TEMP 36.5–37; O2SAT 92–99; BMI 33.5; BMI 33.7
[2024-11-05 03:43] LABS: Partial Thromboplastin Time 111.5 SECONDS (23.9-36.7)
--- NOTE | 2024-11-05 09:01 | P.CONIM_ITS ---
<Statement entered by Kelvin Clinton M.D - 11/07/24 11:57> Patient was cared for in conjunction with an advanced practice practitioner.? I reviewed the chart and all pertinent data including imaging, telemetry, and laboratory results.? I discussed the patient in detail with the advanced practice practitioner.? Please see their note for complete consult note, testing results and agreed upon plan of care for the patient. Providers/Reason For Consult 2 Consulting Physician/Specialty*: Dr Clinton, interventional cardiology Reason for Consult*: NSTEMI, unstable angina Requesting Physician: Lokesh Nice MD Attending Physician: Lokesh Nice MD Primary Care Provider: JUANITA Rivera History of Present Illness History of Present Illness Kimberly Aldridge is a 59 year old female with past medical history of CABG x [address] [facility] 08/14/2023, hypertension, diabetes, systolic CHF, now improved to 45% per patient. She has been following up with her ground defence officer at [facility], was recently taken off Plavix on 10/26/2024 by her ground defence officer. 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 No worsening shortness of breath, has had decreased exercise tolerance due to somewhat sedentary lifestyle. She notes she has been sick for the last 3 weeks, on admission tested positive for COVID. She has not had any increase in weight, abdominal distention, lower extremity edema, orthopnea, PND. Blood pressure has remained well-controlled. The chest pain feels like burning in the substernal region accompanied by an ache in the middle upper back around C7/T1. Yesterday at the onset of chest pain it radiated down both arms to her fingers. She is chest pain-free now. No diaphoresis, nausea or vomiting. EKG shows sinus rhythm with interventricular conduction delay. Troponin series: 14-> 35-> 115. Home medications include aspirin, atorvastatin 80 mg daily, carvedilol 3.125 mg twice a day, Jardiance, Zetia 10 mg daily, metformin, Entresto 49/51 mg twice daily, spironolactone 25 mg daily. Review of Systems 2 Const: Denies: fever(s), chills, change in weight, fatigue or diaphoresis Eyes: Denies: change in vision ENMT: Denies: epistaxis Card: Reports: chest pain; Denies: palpitations, irregular heart rhythm, edema, syncope, pre-syncope, dyspnea on exertion, orthopnea or leg pain with exertion Resp: Denies: dyspnea, productive cough or wheezing GI: Denies: nausea, vomiting, hematemesis, hematochezia or melena : Denies: hematuria Musc: Denies: extremity swelling Matt/Lymph: Denies: easy bruising or easy bleeding Medications/Allergies Home Medications ?Medication ?Instructions ?Recorded ?Confirmed ?Last Taken ?Type glipizide 5 mg tablet, extended 5 mg PO BID@05,18 1210/1611/05/24 11/04/24 06:00 History release 24 hr metformin 750 mg tablet,extended 750 mg PO BID 0 11/05/24 11/04/24 06:00 History release 24 hr acetaminophen 500 mg tablet 1,000 mg PO Q6H PRN Pain 0 09/04/23 11/05/24 Unknown History (Tylenol Extra Strength) aspirin 81 mg tablet,delayed 81 mg PO DAILY #90 tabs 0 09/04/23 11/05/24 11/04/24 Rx release empagliflozin 10 mg tablet 10 mg PO DAILY 09/04/2311/2111/04/24 06:00 History (Jardiance) spironolactone 25 mg tablet 25 mg PO DAILY #90 tabs 11/05/24 11/04/24 06:00 Rx carvedilol 6.25 mg tablet 3.125 mg PO BID 09/17/2411/2111/04/24 06:00 History ezetimibe 10 mg tablet 10 mg PO DAILY 09/17/24 0911/2111/04/24 06:00 History sacubitril 49 mg-valsartan 51 mg 1 tab PO BID 09/17/24 11/05/24 11/04/24 06:00 History tablet (Entresto) baclofen 5 mg tablet 5 mg PO BID PRN muscle spasm #60 10/17/24 11/05/24 11/03/24 Rx tabs atorvastatin 80 mg tablet 80 mg PO QPM 11/05/2411/03/24 20:00 History Allergies Allergy/AdvReac Type Severity Reaction Status Date / Time No Known Allergies Allergy Verified 11/04/24 16:43 Current Medications Generic Name Dose Route Start Last Admin Trade Name Kvngq PRN Reason Stop Dose Admin Heparin Sodium/Sodium Chloride 25,000 unit in 500 mls @ 0 mls/hr 11/04/24 19:30 11/05/24 03:54 Heparin Drip IV 10.75 unit/kg/hr CONT KEISHA 20 mls/hr Protocol Titration Per Protocol PFSH Acute 2 PFSH: Medical History Hyperlipidemia CAD (coronary artery disease) CHF (congestive heart failure) HTN (hypertension) History of [place] (myocardial infarction) Type 2 diabetes mellitus Surgical History S/P CABG x 4 Status post colonoscopy S/P laparoscopic appendectomy (02/04/20) H/O heart artery stent Family History Mother Heart disease Father Heart disease Social History Smoking and tobacco/nicotine status: never used tobacco/nicotine Alcohol intake: never Substance/Drug Use: never Marital status: Number of children: 3 Current occupational status: employed Vitals/I&O/Wt Last Vital Signs Temp 98.6 F 11/05/24 05:00 Pulse 56 L 11/05/24 05:37 Resp 14 11/05/24 05:00 BP 90/46 11/05/24 05:00 Pulse Ox 93 11/05/24 04:30 O2 Del Method Room Air 11/05/24 04:30 11/04/24 11/05/24 11/05/24 22:59 06:59 14:59 Intake Total 192.4 / 192.4 Balance 192.4 / 192.4 Weight last 48 hrs Weight 209 lb 5 oz Weight 207 lb 9.6 oz Weight 205 lb Physical Exam 2 Const: COMMON NORMALS: no acute distress and patient oriented x3 GENERAL APPEARANCE: cooperative and comfortable ORIENTATION/CONSCIOUSNESS: Yes awake, Yes oriented to person, Yes oriented to place and Yes oriented to time Chest: COMMONS NORMALS: normal inspection of the chest and normal palpation of entire chest wall CHEST: Yes Symmetrical chest wall rise Resp: COMMON NORMALS: normal respiratory effort, No retractions, No use of accessory muscles and clear to auscultation bilaterally EFFORT & INSPECTION: Yes symmetric chest movement AUSCULTATION: clear to auscultation bilaterally Cardio: COMMON NORMALS: regular rate, regular rhythm, S1 normal heart sound present, S2 normal heart sound present, No gallops present (Cardio), No clicks present (Cardio), No murmurs present (Cardio) and No rub (Cardio) RATE: r egular rate RHYTHM: regular rhythm HEART SOUNDS: S1 normal heart sound present and S2 normal heart sound present PERIPHERAL PULSES: radial pulses present Extremity: COMMON NORMALS: no pedal edema Neuro: COMMON NORMALS: patient oriented x3 and moves all extremities S ENSORIUM/ORIENTATION: Yes oriented to person, Yes oriented to place and Yes oriented to time Data 11/04/24 17:31 11/04/24 17:31 A&P Assessment and plan 1. NSTEMI (non-ST elevated myocardial infarction): 2. CAD (coronary artery disease): 3. S/P CABG x 4: 4. Type 2 diabetes mellitus: 5. Coronavirus infection: Plan: She has COVID infection. Cardiac enzymes rule in for NSTEMI. Given her history of CABG and convincing symptoms of chest pain which are very similar to her previous set of symptoms before CABG, will plan for coronary angiogram tomorrow morning to evaluate her cardiac status further. N.p.o. after midnight tonight. Continue heparin infusion. Echocardiogram obtained, pending read. She was given Plavix 300 mg x1 last night, received a dose of Plavix 75 mg today. Continue aspirin, statin. PDMP PDMP Reviewed: Not Reviewed Coding Level of Care Code Acute Code for [facility] Diagnoses NSTEMI (non-ST elevated myocardial infarction) I21.4 CAD (coronary artery disease) I25.10 S/P CABG x 4 Z95.1 Type 2 diabetes mellitus E11.9 Coronavirus infection B34.2
[2024-11-05 10:57] LABS: Partial Thromboplastin Time 83.7 SECONDS (23.9-36.7)
--- NOTE | 2024-11-05 13:19 | P.PN_ITS ---
Subjective 2 Subjective: Patient was seen this morning, currently alert oriented x 3, following all commands, is on room air, denies any active chest pain, no lightheadedness, dizziness, she is COVID-19 positive, she tells me that a week ago she had fevers, fatigue, malaise, cough, since then she has recovered mostly, Vitals/I&O/Wt Last Vital Signs Temp 98.4 F 11/05/24 12:00 Pulse 88 11/05/24 12:30 Resp 16 11/05/24 12:30 BP 128/81 11/05/24 12:30 Pulse Ox 99 11/05/24 12:30 O2 Del Method Room Air 11/05/24 04:30 11/04/24 11/05/24 11/05/24 22:59 06:59 14:59 Intake Total 192.4 / 192.4 392 / 392 Balance 192.4 / 192.4 392 / 392 Weight last 48 hrs Weight 94.943 kg Weight 94.166 kg Weight 92.986 kg Physical Exam 2 Const: COMMON NORMALS: no acute distress and patient oriented x3 Resp: COMMON NORMALS: normal respiratory effort, No retractions, No use of accessory muscles and clear to auscultation bilaterally AUSCULTATION: clear to auscultation bilaterally Cardio: COMMON NORMALS: regular rate, regular rhythm, S1 normal heart sound present and S2 normal heart sound present RATE: regular rate RHYTHM: r egular rhythm HEART SOUNDS: S1 normal heart sound present and S2 normal heart sound present GI: COMMON NORMALS: Normal to inspection, nondistended, normoactive bowel sounds present and non-tender Extremity: COMMON NORMALS: no pedal edema Neuro: COMMON NORMALS: patient oriented x3 Psych: COMMON NORMALS: mental status grossly normal Data 11/04/24 17:31 11/04/24 17:31 A&P Assessment and plan 1. Non-ST elevated myocardial infarction: 2. Tachycardia: 3. CAD (coronary artery disease): 4. Hyperlipidemia: 5. Type 2 diabetes mellitus: 6. CHF (congestive heart failure): 7. COVID-19: Plan: NSTEMI -History of CABG x 4 at [facility] 08/14/2023, reported EF 45% - Currently in ICU, CSU status -Aspirin, statin, carvedilol, Plavix -Heparin drip -Cardiology consulted, plans on coronary angiography tomorrow -Cardiac echo - Keep n.p.o. after midnight - Full code -Heparin drip for DVT prophylaxis Diabetes type 2 - Low-dose sliding scale COVID-19 positivity -Patient had COVID symptoms about a week ago, has mostly recovered, remains afebrile, no significant shortness of breath -We will hold off on any treatment, as she is mostly recovered PDMP PDMP Reviewed: Not Reviewed Attestations 2 Medical Necessity Statement*: Patient requires hospitalization for NSTEMI, Diagnoses Non-ST elevated myocardial infarction I21.4 Tachycardia R00.0 CAD (coronary artery disease) I25.10 Hyperlipidemia E78.5 Type 2 diabetes mellitus E11.9 CHF (congestive heart failure) I50.9 COVID-19 U07.1
[2024-11-05 17:39] LABS: Partial Thromboplastin Time 53.5 SECONDS (23.9-36.7)
--- NOTE | 2024-11-05 18:16 | PC.NURSE ---
received from icu in to room 102 at 1630.report received.pt denies cp at present.sr w/bbb on monitor.oriented to room environment.instructed to notify staff for any cp,sob,or for any concerns at all.pt verb understanding of instructions
[2024-11-05] MEDS: heparin drip 25,000 UNIT/500 ML PREMIX 20 UNIT IV (19:53)
--- NOTE | 2024-11-05 22:10 | USCV_ITS ---
Kimberly Aldridge Age: 59 Gender: F : 1965 Exam Date: 11/05/2024 00:14 Ordering Phys: Rozina Villagran MD Technologist: CHAPINCITO [place] [facility] [place]: Chest pain with NSTEMI s/p BPG July 2023 s/p STEMI 2016 BP: 148 / 73 HR: 69 Rhythm: Sinus Technical Quality: Adequate MEASUREMENTS (Male / Female) Normal Values 2D ECHO LV Diastolic Diameter PLAX 5.1 cm 4.2 - 5.9 / 3.9 - 5.3 cm IVS Diastolic Thickness 0.9 cm 0.6 - 1.0 / 0.6 - 0.9 cm IVS Systolic Thickness 0.9 cm LVPW Diastolic Thickness 0.8 cm 0.6 - 1.0 / 0.6 - 0.9 cm LVPW Systolic Thickness 1.2 cm LVOT Diameter 2.1 cm LV Ejection Fraction 2D Teich 8.3 % LV Ejection Fraction MOD 4C 42.9 % LV Ejection Fraction MOD 2C 40.1 % LV Ejection Fraction 2C AL 40.7 % LA Diameter 3.2 cm LA Sys Volume AL 2058.5 cm cubed LA Sys Volume Index AL 972.4 cm cubed/m squared Aorta at Sinotubular Diameter 2.9 cm IVC Diameter 1.1 cm M-MODE LA Ao Ratio MM 1.4 AV Cusp Separation MM 1.5 cm DOPPLER AV Peak Velocity 133.0 cm/s LVOT Peak Velocity 75.0 cm/s AV Area Cont Eq vti 1.9 cm squared AV Area Cont Eq pk 2.0 cm squared MV Peak Velocity 109.0 cm/s MV Area PHT 4.7 cm squared Mitral E to A Ratio 0.8 TV Peak Velocity 199.5 cm/s TR Peak Velocity 207.0 cm/s TR Peak Gradient 17.1 mmHg TV Peak E Velocity 46.0 cm/s PV Peak Velocity 71.0 cm/s FINDINGS Left Ventricle Left ventricular ejection fraction is estimated at 35-40%. Moderate hypokinesis with severe hypokinesis of inferior wall. Grade 1 diastolic dysfunction Right Ventricle Mild RV hypokinesis. Right Atrium Normal in size Left Atrium Normal in size Mitral Valve Moderate mitral annular calcification. Mild mitral valve regurgitation. Aortic Valve Thickened aortic valve. No significant stenosis or regurgitation Tricuspid Valve Mild tricuspid regurgitation. Pulmonary artery systolic pressure is normal. Pulmonic Valve Mild pulmonic regurgitation. Pericardium Normal Aorta Normal in size IVC Appears to be normal CONCLUSIONS LV systolic function is moderately reduced with EF of 35-40%. Grade 1 diastolic dysfunction Mild RV hypokinesis. Mild mitral valve regurgitation. Mild tricuspid regurgitation. Mild pulmonic regurgitation. Kelvin Clinton MD (Electronically Signed) Final Date: 06 November 2024 08:19 S
[2024-11-06] VITALS (36 sets, daily range): BP systolic 89–131; BP diastolic 25–80; PULSE 61–103; RESP 3–23; TEMP 36.1–36.6; O2SAT 89–100
[2024-11-06 00:05] LABS: Partial Thromboplastin Time 62.0 SECONDS (23.9-36.7)
[2024-11-06 03:46] LABS: Hematocrit 41.3 % (36-47); Hemoglobin 13.10 g/dL (11.27-16.99); Mean Corpuscular HGB Conc 31.7 g/dL (30-55); Mean Corpuscular Hemoglobin 28.5 pg (27-33); Mean Corpuscular Volume 90.0 fl (85-98); Nucleated Red Blood Cells % 0 %; Platelet Count 291 10^3/cmm (157-399); Red Blood Count 4.59 10^6/uL (3.85-5.65); White Blood Count 6.10 10^3/uL (3.29-11.43)
[2024-11-06 04:08] LABS: Anion Gap 14.8 (5-19); Blood Urea Nitrogen 21 mg/dL (6-20); Calcium 8.9 mg/dL (8.5-10.5); Carbon Dioxide 21 mmol/L (22-29); Chloride 106 mmol/L (98-107); Creatinine Clr Calc Pharmacy 100.4565; Glucose 141 mg/dL (65-115); Osmolality Calculated 291 mOsm/kg (285-295); Potassium 3.8 mmol/L (3.5-5.1); Sodium 138 mmol/L (136-145)
--- NOTE | 2024-11-06 05:00 | XACV_ITS ---
Exam Room: 2 Ht: 168 cm Wt: 95 kg BSA: 2.14 m2 Gender: Female : 1965 Any Known Allergies: No allergy information Exam Priority: Routine Procedure(s): Procedure Description: Diagnostic procedure Procedure Description: PCI procedure Procedure Description: Venous Graft Catheterization Procedure Description: ROSARIO Graft Catheterization Procedure Description: Drug Eluting Coronary Stent Procedure Description: PTCA Procedure Description: Miscellaneous Procedure Description: ACT Procedure Description: Coronary Angiography Diagnostic Cath Status: Elective Diagnostic Findings * Left Main has no significant disease. * Mid Left Anterior Descending: chronic total occlusion, LINNETTE: 0 flow. * Bypass grafts: ROSARIO to LAD is patent. SVG to PDA has severe distal vessel stenosis and thrombus. Radial artery graft to OM is patent. Has severe touchdown disease. * Proximal Left Anterior Descending: subtotal occlusion, LINNETTE: 3 flow. * Proximal Circumflex: subtotal occlusion, LINNETTE: 1 flow. * Posterior Descending Right: total occlusion, LINNETTE: 3 flow. * Coronary angiography shows right dominance. PCI Status: Urgent PCI Indication: NSTE - ACS Interventional Findings * Procedure detail: JR4 guide catheter was used to engage radial artery graft to OM. Run-through wire was used to cross the stenosis. Predilated with 2.25 x 12 mm semicompliant balloon. This was followed with placement of 2.25 x 12 mm resolute [place] drug-eluting stent. Final angiogram showed excellent stent expansion and no residual stenosis. Guidewire and guide catheter were removed. We then turned our attention to SVG to RCA. Run-through wire was used to cross the stenosis. IVUS was performed. We then placed 3.5 x 18 mm resolute [place] drug-eluting stent and distal SVG graft. Final angiogram showed excellent stent expansion and no residual stenosis. Guidewire and guide catheter were removed. Patient left the [facility] in a stable condition. Conclusions 1. Severe radial artery graft to OM stenosis status post PCI with 1 stent. Severe distal SVG to PDA stenosis. Status post successful revascularization with 1 stent.. Recommendations * Xarelto and plavix as patient has thrombus in setting of COVID infection. * Outpatient cardiology follow up in 2 weeks. Interventional RX Recommendation: PCI w/o planned CABG Diagnostic RX Recommendation: PCI w/o planned CABG Anticoagulation: Heparin Pressures Phase:Rest AO : 144 / 80 ( 105 ) @ 7:28:00 AM 100 / 71 ( 85 ) @ 7:35:00 AM 104 / 78 ( 91 ) @ 7:40:00 AM 137 / 67 ( 91 ) @ 7:47:00 AM 124 / 78 ( 99 ) @ 7:54:00 AM 116 / 74 ( 93 ) @ 8:05:00 AM Clinical Evaluation EBL: 5mL-10mL Procedural Details Procedure Consent Obtained. Current Diagnosis : NSTEMI. Pre-Procedure Time Out. Identified patient by full name and date of as verbalized by the patient/guarantor. Does the consent match the physician's order: Yes. Accurate & Complete Informed Consent: Yes. Inpatient/Outpatient History & Physical on Chart: Yes. If H&P is completed, is and addenduem needed: No; If yes, is the addendum complete: N/A. Visualize and Verify Site with Patient/Guarantor: N/A. Relevant Radiology Images available: Yes. Pre-op teaching completed and patient verbalized understanding. The risks, benefits, and alternatives of sedation and/or procedure were discussed by physician. The patient agrees to continue. Procedure started. [facility] Clinical Fraility Score: 3: Managing Well. [facility] Indications: ACS > 24 hours. Chest Pain Symptom Assessment: Typical Angina Symptoms. Correct patient, site and procedure confirmed by cath team. Current diagnosis: Chest Pain. PERRLA. Strong, equal hand data entry coordinator bilaterally. Lungs clear x 5 lobes. IV Site on Arrival: 18 gauge in the right anticubital. IV Fluids: 0.9% NaCl at KVO. 0 mL infused prior to geophysical laboratory director. Oxygen started at 2liters/min via nasal canula. bilateral groins was prepped with chloroprep then draped in the usual sterile fashion. Baseline sample Acquired. HR: 86 BPM. Physician arrived. Physician scrubbed in. Immediate Pre-Procedure Time Out. Correct Patient: Yes; Correct Procedure: Yes; Correct Site: Yes; Correct Patient Position: Yes; Correct Supplies: Yes; Dried Flammable Prep: Yes; Blood Products Available: N/A;. Lidocaine 1% infiltrated to the right groin. Arterial access obtained with micropuncture set. Lidocaine 1% infiltrated to the right groin. A 5 armenian JL4 catheter in over wire. Multiple views taken of left coronary artery. Catheter removed over the exchange wire. A 5 armenian JR4 catheter in over wire. Multiple views taken of right coronary artery. SVG's to RCA visualized and patent. SVG's to OM visualized and patent. ROSARIO to LAD visualized. Catheter removed over the exchange wire. Sheath upsized to a 6 Fr. Side port of sheath attached to heparnized saline flush at KVO to maintain patency. Physician review of cine films. 6 armenian JR 4 guide catheter was inserted over the wire. Runthrough guidewire was advanced through the guide catheter to lesion in the OM. A second Runthrough guidewire was advanced through the guide catheter to lesion in the OM. The first Runthrough wire removed. Inflation number : 1 A AB TREK 2.25X12 RX BALLOON was prepped and advanced across the Aorta Left -> 1st Ob [place] , then inflated to 8 GINI for 0:11 seconds. Inflation number: 2 The AB TREK 2.25X12 RX BALLOON was reinflated across the Aorta Left -> 1st Ob [place], to 8 GINI for 0:07 seconds. Balloon out. Results checked. Inflation Number : 3 A MDT R SHEMAR 2.25X12 [place] -Lot Number# _[id number] EXP: 03/07/2027 was prepped and advanced across the Aorta Left -> 1st Ob [place]. The stent was deployed at 12 GINI for 0:19 seconds. Stent balloon out over wire. Results checked. Wire out. Guide catheter redirected to the SVG to the RCA. SVG's to RCA visualized and patent. Runthrough guidewire was advanced through the guide catheter to lesion in the distal RCA. IVUS catheter inserted OTW and advanced to the SVG to the RCA. IVUS measurements obtained. IVUS catheter out OTW. Inflation Number : 1 A MDT R SHEMAR 3.5X18 [place] -Lot Number# _[id number] EXP: 01/13/2027 was prepped and advanced across the Aorta Right -> Dist RCA. The stent was deployed at 12 GINI for 0:16 seconds. Stent balloon out over wire. Results checked. Wire out. Results checked. ACT drawn. Results 395 seconds. Therapeutic limits - pre-heparin administration 90-150 seconds and monitoring heparin during a vascular procedure >250 seconds. Guide catheter out. A Right femoral angiogram was performed to determine safe placement of closure device. A Suture was successful obtaining hemostatsis at the Right Femoral artery insertion site. Vital chart was stopped. Sheath(s) sutured into position with 2-0 silk and sterile 4x4's and Op-site applied over the site. No oozing or signs and symptoms of hematoma noted. PERRLA. Strong, equal hand data entry coordinator bilaterally. No VTE prophylaxis required. Medication's Wasted: Other = Fentanyl 75mcg Versed 1 mg. Total IV fluids: 50 mL. Post-op diagnosis: Stent to OM and RCA. Complications: None. Estimated blood loss: 5mL-10mL. Responsiveness - Normal response to verbal stimuli; alert and oriented, PERRLA. Airway - Unaffected, no intervention required; spontaneous ventilation. Circulation: W/N/L, pulses unchanged. Nausea/Vomiting: No. Procedure completed. Patient transferred by bed to ICU. Access Site Site: Right Femoral artery Sheath Size: 6 Fr Hemostasis Method: Suture Hemostasis Success: Successful Procedure Medications Start: 6:12 AM Stop: 6:12 AM Medication: Fentanyl Amount: 25 mcg Route: I.V. Start: 6:18 AM Stop: 6:18 AM Medication: Fentanyl Amount: 25 mcg Route: I.V. Start: 6:19 AM Stop: 6:19 AM Medication: Versed Amount: 1 mg Route: I.V. Start: 6:23 AM Stop: 6:23 AM Medication: Versed Amount: 1 mg Route: I.V. Start: 6:25 AM Stop: 6:25 AM Medication: Fentanyl Amount: 25 mcg Route: I.V. Start: 6:34 AM Stop: 6:34 AM Medication: Versed Amount: 1 mg Route: I.V. Start: 6:53 AM Stop: 6:53 AM Medication: Heparin Amount: 7000 units Route: I.V. Start: 6:56 AM Stop: 6:56 AM Medication: Versed Amount: 1 mg Route: I.V. Start: 7:04 AM Stop: 7:04 AM Medication: Heparin Amount: 1000 units Route: I.V. Start: 7:10 AM Stop: 7:10 AM Medication: Versed 1 mg and Fentanyl 25 mcg Amount: 1 Route: I.V. Start: 7:16 AM Stop: 7:16 AM Medication: Heparin Amount: 1000 units Route: I.V. Start: 7:29 AM Stop: 7:29 AM Medication: Brilinta Amount: 180 mg Route: P.O. I, the attending physician, have reviewed and verified all procedure medications. Yes, all medications given per verbal order History/Risk Factors Hypertension: Yes Dyslipidemia: Yes Peripheral Arterial Disease (PAD): No Myocardial Infarction (AK): Yes Obesity: No Renal Disease: No Tobacco Use: Never Prior Interventions PCI: No CABG: No Valve Surgery: No Report Signatures Finalized by Kelvin Clinton MD on 11/19/2024 12:26 PM
--- NOTE | 2024-11-06 06:21 | W.PM.OPSUD ---
Surgery/Procedure H&P Update DATE OF PROCEDURE: November 06, 2024 DATE H&P PERFORMED: 11/05/24 H&P UPDATE INFORMATION: I have reviewed H&P completed within last 30 days, I have examined patient prior to procedure and No changes to prior documentation PREOP DIAGNOSIS: NSTEMI PRIMARY INDICATION FOR PROCEDURE: NSTEMI PLANNED PROCEDURE: Left heart cath with possible percutaneous coronary intervention PATIENT REASSESSED PRIOR TO SEDATION, WITH NO CHANGE NOTED: Yes PHYSICAL EXAM: alert, oriented x 3, clear to auscultation bilaterally and regular rate & rhythm AIRWAY EVAL/ANESTHESIA PLAN: normal airway, ASA III, Local Anesthesia, Risks, benefits & alternatives of sedation and/or procedure discussed and Patient agrees to continue as planned ADDITIONAL INFORMATION: Moderate sedation
--- NOTE | 2024-11-06 08:00 | PM.PROC ---
Procedure Note: Date of procedure: 11/06/24 Pre-procedure diagnosis: NSTEMI Post-procedure diagnosis: other (Severe SVG to RCA stenosis and thrombus s/p PCI with 1 stent. Severe radial graft to OM touchdown disease s/p PCI with 1 stent) Procedure: Severe SVG to RCA stenosis and thrombus s/p PCI with 1 stent. Severe radial graft to OM touchdown disease s/p PCI with 1 stent. ROSARIO to LAD is patent Aspirin and Brilinta. As patient is prothrombotic secondary to COVID infection, can start Xarelto 10mg daily tonight along with brilinta 90mg BID. Performing Provider: Kelvin Clinton Complications: None Condition: stable Disposition: ICU Coding Level of Care Code Acute Code for [place]
[2024-11-06 10:38] LABS: Partial Thromboplastin Time > 250.0 SECONDS (23.9-36.7)
[2024-11-06 12:09] LABS: Partial Thromboplastin Time 55.9 SECONDS (23.9-36.7)
--- NOTE | 2024-11-06 13:43 | P.PN_ITS ---
Subjective 2 Subjective: Patient was seen postoperatively, after coronary angiography, denies any chest pain, no palpitations, no lightheadedness, dizziness, we discussed plans on starting her on Xarelto this evening, with Brilinta, as per discussion with cardiology, she is in agreement, Vitals/I&O/Wt Last Vital Signs Temp 97.0 F L 11/06/24 07:54 Pulse 76 11/06/24 07:54 Resp 18 11/06/24 07:54 BP 116/68 11/06/24 07:54 Pulse Ox 98 11/06/24 07:54 O2 Del Method Room Air 11/06/24 07:54 11/05/24 11/06/24 11/06/24 22:59 06:59 14:59 Intake Total 883.533 / 1275.533 91.667 / 1367.200 360 / 360 Balance 883.533 / 1275.533 91.667 / 1367.200 360 / 360 Weight last 48 hrs Weight 94.892 kg Weight 94.943 kg Weight 94.166 kg Weight 92.986 kg Physical Exam 2 Const: COMMON NORMALS: no acute distress and patient oriented x3 Resp: COMMON NORMALS: normal respiratory effort, No retractions, No use of accessory muscles and clear to auscultation bilaterally AUSCULTATION: clear to auscultation bilaterally Cardio: COMMON NORMALS: regular rate, regular rhythm, S1 normal heart sound present and S2 normal heart sound present RATE: regular rate RHYTHM: r egular rhythm HEART SOUNDS: S1 normal heart sound present and S2 normal heart sound present GI: COMMON NORMALS: Normal to inspection, nondistended, normoactive bowel sounds present and non-tender Extremity: COMMON NORMALS: no pedal edema Neuro: COMMON NORMALS: patient oriented x3 Psych: COMMON NORMALS: mental status grossly normal Data 11/06/24 03:30 11/06/24 03:30 A&P Assessment and plan 1. Non-ST elevated myocardial infarction: 2. Tachycardia: 3. CAD (coronary artery disease): 4. Hyperlipidemia: 5. Type 2 diabetes mellitus: 6. CHF (congestive heart failure): 7. COVID-19: Plan: NSTEMI -History of CABG x 4 at [facility] 08/14/2023, reported EF 45% -Received Brilinta load in cath suite, Plavix will be stopped, start Brilinta 90 twice daily this afternoon, Xarelto this evening -Heparin drip stopped -Cardiology consulted, coronary angiography: Severe SVG to RCA stenosis and thrombus s/p PCI with 1 stent. Severe radial graft to OM touchdown disease s/p PCI with 1 stent. ROSARIO to LAD is patent -Cardiac echo CONCLUSIONS LV systolic function is moderately reduced with EF of 35-40%. Grade 1 diastolic dysfunction Mild RV hypokinesis. Mild mitral valve regurgitation. Mild tricuspid regurgitation. Mild pulmonic regurgitation. - Full code -xarelto for DVT prophylaxis Diabetes type 2 - Low-dose sliding scale COVID-19 positivity -Patient had COVID symptoms about a week ago, has mostly recovered, remains afebrile, no significant shortness of breath -We will hold off on any treatment, as she is mostly recovered PDMP PDMP Reviewed: Not Reviewed Attestations 2 Medical Necessity Statement*: Patient requires hospitalization for chest pain, NSTEMI Diagnoses Non-ST elevated myocardial infarction I21.4 Tachycardia R00.0 CAD (coronary artery disease) I25.10 Hyperlipidemia E78.5 Type 2 diabetes mellitus E11.9 CHF (congestive heart failure) I50.9 COVID-19 U07.1
[2024-11-07] VITALS: BP 111/67; PULSE 85; RESP 22; TEMP 36.8; O2SAT 97
[2024-11-07 02:53] LABS: Hematocrit 38.8 % (36-47); Hemoglobin 12.60 g/dL (11.27-16.99); Mean Corpuscular HGB Conc 32.5 g/dL (30-55); Mean Corpuscular Hemoglobin 28.8 pg (27-33); Mean Corpuscular Volume 88.8 fl (85-98); Nucleated Red Blood Cells % 0 %; Platelet Count 289 10^3/cmm (157-399); Red Blood Count 4.37 10^6/uL (3.85-5.65); White Blood Count 6.77 10^3/uL (3.29-11.43)
[2024-11-07 03:14] LABS: Anion Gap 16.0 (5-19); Blood Urea Nitrogen 20 mg/dL (6-20); Calcium 8.8 mg/dL (8.5-10.5); Carbon Dioxide 21 mmol/L (22-29); Chloride 108 mmol/L (98-107); Creatinine Clr Calc Pharmacy 87.8995; Glucose 130 mg/dL (65-115); Osmolality Calculated 296 mOsm/kg (285-295); Potassium 4.0 mmol/L (3.5-5.1); Sodium 141 mmol/L (136-145)
[2024-11-07 03:58] VITALS: BP 117/78; PULSE 88; RESP 18; TEMP 36.8; O2SAT 98
[2024-11-07 07:50] VITALS: BP 129/78; PULSE 78; RESP 17; TEMP 36.7; O2SAT 98
--- NOTE | 2024-11-07 08:40 | P.PN_ITS ---
<Statement entered by Kelvin Clinton M.D - 11/07/24 12:03> Patient was cared for in conjunction with an advanced practice practitioner.? I reviewed the chart and all pertinent data including imaging, telemetry, and laboratory results.? I discussed the patient in detail with the advanced practice practitioner.? Please see their note for complete progress note, testing results and agreed upon plan of care for the patient. Subjective 2 Subjective: She has done well overnight, no chest pain or shortness of breath. No complications with femoral cath site. Vitals/I&O/Wt Last Vital Signs Temp 98.0 F 11/07/24 07:50 Pulse 78 11/07/24 07:50 Resp 17 11/07/24 07:50 BP 129/78 11/07/24 07:50 Pulse Ox 98 11/07/24 07:50 O2 Del Method Room Air 11/07/24 07:50 11/06/24 11/07/24 11/07/24 22:59 06:59 14:59 Intake Total 480 / 1960 1120 / 1960 Balance 480 / 1959 1120 / 1960 Weight last 48 hrs Weight 110 lb 14.4 oz Weight 209 lb 3.2 oz Physical Exam 2 Const: COMMON NORMALS: no acute distress and patient oriented x3 GENERAL APPEARANCE: cooperative ORIENTATION/CONSCIOUSNESS: Yes awake, Yes oriented to person, Yes oriented to place and Yes oriented to time Chest: COMMONS NORMALS: normal inspection of the chest and normal palpation of entire chest wall CHEST: Yes Symmetrical chest wall rise Resp: COMMON NORMALS: normal respiratory effort, No retractions, No use of accessory muscles and clear to auscultation bilaterally AUSCULTATION: clear to auscultation bilaterally Cardio: COMMON NORMALS: regular rate, regular rhythm, S1 normal heart sound present, S2 normal heart sound present, No gallops present (Cardio), No clicks present (Cardio), No murmurs present (Cardio) and No rub (Cardio) RATE: r egular rate RHYTHM: regular rhythm HEART SOUNDS: S1 normal heart sound present and S2 normal heart sound present PERIPHERAL PULSES: radial pulses present positive right 2+ and femoral pulses present positive right 2+ Neuro: COMMON NORMALS: patient oriented x3 and moves all extremities S ENSORIUM/ORIENTATION: Yes oriented to person, Yes oriented to place and Yes oriented to time Skin: WOUNDS: Yes surgical site (no hematoma palpable) Details: no odor Data 11/07/24 02:06 11/07/24 02:06 A&P Assessment and plan 1. S/P CABG x 4: 2. NSTEMI (non-ST elevated myocardial infarction): 3. CAD (coronary artery disease): 4. Type 2 diabetes mellitus: 5. Hyperlipidemia: 6. CHF (congestive heart failure): Plan: She is s/p [place] to radial to OM graft, and [place] x1 to SVG to RCA graft. No recurrence of chest pain, no shortness of breath. She can discharge home today, on Brilinta 90 mg BID and Xarelto 10 mg daily. 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 PDMP PDMP Reviewed: Not Reviewed Attestations 2 Medical Necessity Statement*: dc home Coding Level of Care Code Acute Code for Chg Fwd Diagnoses S/P CABG x 4 Z95.1 NSTEMI (non-ST elevated myocardial infarction) I21.4 CAD (coronary artery disease) I25.10 Type 2 diabetes mellitus E11.9 Hyperlipidemia E78.5 CHF (congestive heart failure) I50.9
[2024-11-07] MEDS: FUROsemide 10 mg/mL SDV 4mL 40 MG IVP (11:07)
[2024-11-07 11:11] VITALS: BP 126/78; PULSE 101; RESP 16; TEMP 36.6; O2SAT 98
--- NOTE | 2024-11-07 12:52 | P.DS_ITS ---
Discharge Providers Date of Admission: 11/04/24 18:53 Date of Discharge: November 07, 2024 Attending Provider at Admission: Rozina Villagran MD Attending Provider at Discharge: Lokesh Nice MD Primary Care Provider: JUANITA Rivera Diagnoses at Discharge Discharge Diagnosis 1. S/P CABG x 4: 2. NSTEMI (non-ST elevated myocardial infarction): 3. Coronary artery disease involving [place] coronary artery of [place] heart with angina pectoris: 4. Type 2 diabetes mellitus: 5. Hyperlipidemia: 6. Chronic diastolic congestive heart failure: Reason for Visit Reason for Visit: chest burning, shoulder pain Hospital Course Hospital Course This is a 59-year-old female with a past medical history of CABG, schema cardiomyopathy, who presents [facility] for chest pain Patient was admitted to [facility] for NSTEMI - Cardiology consulted - Initially medically managed on aspirin, statin, Plavix, heparin drip - Cardiac echo shows EF 35 to 40% - Patient underwent cardiac catheterization -Cardiology consulted, coronary angiography: Severe SVG to RCA stenosis and thrombus s/p PCI with 1 stent. Severe radial graft to OM touchdown disease s/p PCI with 1 stent. ROSARIO to LAD is patent - Patient tolerated procedure well, recurrent chest pain - Given her current COVID-19 infection, concern for hypercoagulability, decision was made to transition her to Brilinta 90 twice daily, and Xarelto 10 mg daily - After discussing risks and benefits with patient, she voiced understanding, all question answered, agreed to proceed - She was monitored for 24 hours after procedure - Overall doing well, no recurrent chest pain - Hemoglobin stable at 12.6, no bloody or black stools - She will be discharged - Brilinta 90 twice daily, Xarelto 10 mg nightly - If any recurrent chest pain go to the emergency room - She did have complaints of intermittent shortness of breath, possibly fluid overload after hydration therapy after coronary angiogram, given EF 35 to 40%, she was given Lasix - She was discharged with Lasix to be used as needed with potassium replacement therapy for shortness of breath For COVID-19 infection, advised to self isolate, socially distance, monitor for sudden onset shortness of breath/hemoptysis/calf pain or swelling so go to emergency room, nonetheless discharged with anticoagulants as above Physical Exam Const: COMMON NORMALS: no acute distress and patient oriented x3 Resp: COMMON NORMALS: normal respiratory effort, No retractions, No use of accessory muscles and clear to auscultation bilaterally AUSCULTATION: clear to auscultation bilaterally Cardio: COMMON NORMALS: regular rate, regular rhythm, S1 normal heart sound present and S2 normal heart sound present RATE: regular rate RHYTHM: regular rhythm HEART SOUNDS: S1 normal heart sound present and S2 normal heart sound present GI: COMMON NORMALS: Normal to inspection, nondistended, normoactive bowel sounds present and non-tender Extremity: COMMON NORMALS: no pedal edema Neuro: COMMON NORMALS: patient oriented x3, CN's II-XII intact bilaterally and moves all extremities Psych: COMMON NORMALS: mental status grossly normal Discharge Data Studies Completed and Pending Completed Studies During Hospitalization Category Date Time Status XR chest 1V portable [id number] Stat Exams 11/04/24 16:36 Completed CV. echo complete* [id number] Routine Ultrasound 11/05/24 22:10 Completed Pending at discharge Category Date Time Status CALL CENTER ANALYST request for service Routine Exams 11/06/24 05:00 Taken Basic Metabolic Panel AM LABS Lab 11/08/24 04:00 Ordered Complete Blood Count w/Auto AM LABS Lab 11/08/24 04:00 Ordered Radiology Impressions Chest X-Ray 11/04/24 16:36 IMPRESSION: 1. Postsurgical changes of sternotomy/CABG. Upper limits of normal cardiac size with single-view exam. 2. Mild tenting left diaphragm left lung base. Minimal linear scar lateral mid left lung. 3. No acute findings. Laboratory Results WBC 6.77 10^3/uL (3.29-11.43) 11/07/24 02:06 RBC 4.37 10^6/uL (3.85-5.65) 11/07/24 02:06 Hgb 12.60 g/dL (11.27-16.99) 11/07/24 02:06 Hct 38.8 % (36-47) 11/07/24 02:06 MCV 88.8 fl (85-98) 11/07/24 02:06 MCH 28.8 pg (27-33) 11/07/24 02:06 MCHC 32.5 g/dL (30-55) 11/07/24 02:06 RDW 13.5 % (12.1-15.1) 11/07/24 02:06 Plt Count 289 10^3/cmm (157-399) 11/07/24 02:06 MPV 9.0 fL (7.4-10.4) 11/07/24 02:06 Neut % (Auto) 59.3 % 11/07/24 02:06 Lymph % (Auto) 28.7 % 11/07/24 02:06 Cook % (Auto) 8.9 % 11/07/24 02:06 Eos % (Auto) 2.2 % 11/07/24 02:06 Baso % (Auto) 0.6 % 11/07/24 02:06 Neut # (Auto) 4.02 10^3/uL (1.8-7.7) 11/07/24 02:06 Lymph # (Auto) 1.9 10^3/uL (0.8-4.8) 11/07/24 02:06 Cook # (Auto) 0.6 10^3/uL (0.2-0.9) 11/07/24 02:06 Eos # (Auto) 0.2 10^3/uL (0.0-0.8) 11/07/24 02:06 Baso # (Auto) 0.0 10^3/uL (0.0-0.1) 11/07/24 02:06 Nucleated RBC % (auto) 0 % 11/07/24 02:06 Nucleated RBCs # 0.0 /100WBC 11/07/24 02:06 APTT 55.9 SECONDS (23.9-36.7) H D 11/06/24 11:40 Sodium 141 mmol/L (136-145) 11/07/24 02:06 Potassium 4.0 mmol/L (3.5-5.1) 11/07/24 02:06 Chloride 108 mmol/L (98-107) H 11/07/24 02:06 Carbon Dioxide 21 mmol/L (22-29) L 11/07/24 02:06 Anion Gap 16.0 (5-19) 11/07/24 02:06 BUN 20 mg/dL (6-20) 11/07/24 02:06 Creatinine 0.8 mg/dL (0.5-0.9) 11/07/24 02:06 GFR Calculation 73.4 mL/min (90-130) L 11/07/24 02:06 Glucose 130 mg/dL (65-115) H 11/07/24 02:06 POC Glucose 135 mg/dL (70-110) H 11/07/24 11:13 Calculated Osmolality 296 mOsm/kg (285-295) H 11/07/24 02:06 Lactic Acid 1.2 mmol/L (0.5-2.2) 11/04/24 18:53 Calcium 8.8 mg/dL (8.5-10.5) 11/07/24 02:06 Total Bilirubin 0.6 mg/dL (0.15-1.2) 11/04/24 17:31 AST 13 U/L (0-32) 11/04/24 17:31 ALT 12 U/L (0-33) 11/04/24 17:31 Alkaline Phosphatase 71 U/L (35-105) 11/04/24 17:31 Troponin T Baseline 14 ng/L (0-10) H 11/04/24 17:31 Troponin T 120 Minute 35.27 ng/L (0-10) H 11/04/24 18:53 Delta Troponin T 21.27 ABS# (0-10) H* 11/04/24 18:53 Troponin T Hi Sens 6Hr 115.6 ng/L (0-10) H 11/04/24 23:12 Troponin T Hi Sens 6Hr Delta 101.6 ng/L (0-12) H* 11/04/24 23:12 NT-Pro-B Natriuret Pep 272 pg/mL (0-125) H 11/04/24 17:31 Total Protein 7.2 g/dL (6.6-8.7) 11/04/24 17:31 Albumin 4.4 g/dL (3.5-5.2) 11/04/24 17:31 Globulin 2.8 g/dL (1.3-4.6) 11/04/24 17:31 Influenza A (PCR) Negative (Negative) 11/04/24 17:31 Influenza Type B (PCR) Negative (Negative) 11/04/24 17:31 RSV (PCR) Negative (Negative) 11/04/24 17:31 SARS-CoV-2 (PCR) Positive (Negative) A 11/04/24 17:31 Vitals Last Vital Signs Temp 97.8 F 11/07/24 11:11 Pulse 101 H 11/07/24 11:11 Resp 16 11/07/24 11:11 BP 126/78 11/07/24 11:11 Pulse Ox 98 11/07/24 11:11 O2 Del Method Room Air 11/07/24 11:11 Discharge Plan Discharge Patient Disposition: Home Condition: Stable Prescriptions: New ticagrelor [Brilinta] 90 mg Tablet 90 mg PO BID 30 Days Qty: 60 0RF furosemide [Lasix] 20 mg tablet 20 mg PO DAILY PRN (Reason: weight gain 3lbs or edema or sob) 30 Days Qty: 30 0RF Xarelto 10 mg Tablet 10 mg PO Q24H 30 Days Qty: 30 0RF nitroglycerin 0.4 mg Tablet, Sublingual 0.4 mg sublingual Q5M PRN (Reason: Chest Pain) 30 Days Qty: 30 0RF potassium chloride [Klor-Con 10] 10 mEq tablet extended release 10 meq PO DAILY PRN (Reason: with lasix) 30 Days Qty: 30 0RF Continued baclofen 5 mg tablet 5 mg PO BID PRN (Reason: muscle spasm) Qty: 60 0RF acetaminophen [Tylenol Extra Strength] 500 mg tablet 1,000 mg PO Q6H PRN (Reason: Pain) Jardiance 10 mg tablet 10 mg PO DAILY spironolactone 25 mg tablet 25 mg PO DAILY Qty: 90 3RF ezetimibe 10 mg tablet 10 mg PO DAILY Entresto 49-51 mg tablet 1 tab PO BID carvedilol 6.25 mg tablet 3.125 mg PO BID Rx Instructions: must administer with a meal/food glipizide 5 mg tablet extended release 24hr 5 mg PO BID@,18 metformin 750 mg tablet extended release 24 hr 750 mg PO BID atorvastatin 80 mg tablet 80 mg PO QPM Discontinued aspirin 81 mg tablet,delayed release (DR/EC) 81 mg PO DAILY Qty: 90 3RF Referrals: Alena Kerr FNP [Primary Care Provider, Nurse Practitioner] - 11/12/24 11:00 am Kelvin Clinton M.D [Physician, Cardiology] - 11/11/24 2:30 pm Discharge Diet: Cardiac Discharge Activity: Resume usual activity Patient Instructions: Coronary Angioplasty (DC), CHF Stoplight, Opioid Safety, Post Angiogram Home Care Instructions, Patient Portal & Ch[facility]al Instructions Activity Restrictions/Additional Instructions: - Please continue Xarelto, and Brilinta - If you have any recurrent chest pain go to the emergency room - Xarelto and Brilinta are powerful blood thinners, if you develop bloody or black stools or significant fall or head trauma please go to the emergency room - Please have your primary care provider monitor your hemoglobin as outpatient -COVID-19 continue to self isolate, socially distance, facemask, hand wash - Discussed with primary care provider about COVID-19/flu/RSV vaccinations within a month - Please use Lasix as needed with potassium for shortness of breath how I would use Lasix is - Is Lasix 20 mg daily with potassium for 3 days if you feel short of breath or if you develop edema or you pee more than 3 pounds - I would do this for 3 days and after 3 days if you continue to have shortness of breath/edema/weight gain, go to emergency room or see primary care, but after 3 days if you are doing better and then you can stop Discharge Attestations Time Spent in Discharge Care*: greater than 30 min Quality Metrics Clinical Quality Measures [ Acute Myocardial Infaction { Clinical Trial Participant: No; Contraindication to aspirin: None; Aspirin prescribed; Contraindication to statin: None; Statin prescribed; Contraindication to PCI: None; PCI performed;}. No reported AMI, CVA or VTE this stay] Coding Level of Care Code 33613 Total time (in minutes) for Discharge: 45 Diagnoses S/P CABG x 4 Z95.1 NSTEMI (non-ST elevated myocardial infarction) I21.4 Coronary artery disease involving [place] coronary artery of [place] heart with angina pectoris I25.119 Coronary Disease-Associated Artery/Lesion type: [place] artery [place] vs. transplanted heart: [place] heart Associated angina: with unspecified form of angina Type 2 diabetes mellitus E11.9 Hyperlipidemia E78.5 Chronic diastolic congestive heart failure I50.32 Heart failure type: diastolic Heart failure chronicity: chronic
[2024-11-07 15:00] VITALS: BP 137/83; PULSE 98; RESP 17; O2SAT 99
[2024-11-07 17:10] VITALS: BP 137/63; PULSE 99; RESP 15; O2SAT 94
== END 2024-11-07 17:31 | disposition home or self-care (01) ==
LOC: ER 17:46 → ER IP 18:54 → ICU 11-05 01:15 → CSU 11-05 16:36
PROVIDERS: Internal Medicine; Admitting Provider Internal Medicine; Emergency Provider Emergency Medicine; PCP Nurse Practitioner; Visit Provider Family Medicine
DX: I21.4 Non-ST elevation (NSTEMI) myocardial infarction (principal); E78.5 Hyperlipidemia, unspecified; Z95.1 Presence of aortocoronary bypass graft; E11.9 Type 2 diabetes mellitus without complications; I50.32 Chronic diastolic (congestive) heart failure; I11.0 Hypertensive heart disease with heart failure; R00.0 Tachycardia, unspecified; Z79.84 Long term (current) use of oral hypoglycemic drugs; U07.1 COVID-19; Z79.82 Long term (current) use of aspirin
CPT/HCPCS: 36415; 36416; 71045; 80048; 80053; 82962; 83605; 83880; 84484; 85025; 85347; 85730; 87637; 92978; 93005; 93306; 93455; 96365; 96366; 96372; 99152; 99153; 99285; C1725; C1753; C1769; C1874; C1887; C1894; C9600; G0378; J1644; J1815; J1938; J2250; J3010; J3490; J7030; J9999; Q0163; Q9967

== ENCOUNTER → 2024-11-12 11:44 | Outpatient (BNVA) | payer OTHER, SELFPAY | PROVIDERS: PCP Nurse Practitioner; Visit Provider Nurse Practitioner | DX: I25.119 Atherosclerotic heart disease of native coronary artery with unspecified angina pectoris (principal) | CPT/HCPCS: 80053 ==

== ENCOUNTER → 2025-02-07 13:54 | Outpatient (BNVA) | payer OTHER, SELFPAY | PROVIDERS: PCP Nurse Practitioner; Visit Provider Nurse Practitioner | DX: E11.9 Type 2 diabetes mellitus without complications (principal) | CPT/HCPCS: 83036 ==